=== PATIENT | female | born 1940 | race Caucasian/White ===

== ENCOUNTER 2016-03-23 05:20 | Inpatient (IN) | payer OTHER ==
[2016-03-17 11:18] VITALS: BMI 26.0
--- NOTE | 2016-03-17 11:55 | PAT Medication Instructions ---
Service Date Mar 17, 2016. Current Home Medication List Acetaminophen (Tylenol), 1,000 MG PO TID PRN for Pain Albuterol (Ventolin Hfa), 2 PUFF INH Q4H PRN for SOB/Wheezing Aspirin (Aspirin Ec), 81 MG PO QAM Atenolol (Atenolol), 50 MG PO QAM Atorvastatin (Lipitor), 40 MG PO HS Ferrous Sulfate (Ferrous Sulfate), 1 TAB PO QAM Glipizide (Glucotrol), 10 MG PO BID Levothyroxine Sodium (Synthroid), 100 MCG PO QAM Lisinopril (Lisinopril), 20 MG PO QAM Metformin Hcl (Glucophage), 500 MG PO BID Omeprazole (Prilosec), 20 MG PO QAM Warfarin Sod (Coumadin), 5 MG PO MWF Warfarin Sod (Coumadin), 2.5 MG PO 4XWK Medication Instructions For Your Scheduled Surgery - Check with surgeon/fisher hand line for instructions: Aspirin (Aspirin Ec), 81 MG PO QAM Warfarin Sod (Coumadin), 5 MG PO MWF Warfarin Sod (Coumadin), 2.5 MG PO 4XWK - Hold the following medications 48 hours prior to surgery: Metformin Hcl (Glucophage), 500 MG PO BID - Hold the following medications the morning of surgery: Lisinopril (Lisinopril), 20 MG PO QAM Glipizide (Glucotrol), 10 MG PO BID Ferrous Sulfate (Ferrous Sulfate), 1 TAB PO QAM - Take the following medications the morning of surgery with a sip of water: Albuterol (Ventolin Hfa), 2 PUFF INH Q4H PRN for SOB/Wheezing (bring with you to hospital to morning of the surgery) Acetaminophen (Tylenol), 1,000 MG PO TID PRN for Pain (f needed) Atenolol (Atenolol), 50 MG PO QAM Omeprazole (Prilosec), 20 MG PO QAM Levothyroxine Sodium (Synthroid), 100 MCG PO QAM - Take the following medications as scheduled the night before surgery: Albuterol (Ventolin Hfa), 2 PUFF INH Q4H PRN for SOB/Wheezing Acetaminophen (Tylenol), 1,000 MG PO TID PRN for Pain (f needed) Atorvastatin (Lipitor), 40 MG PO HS Glipizide (Glucotrol), 10 MG PO BID If you have any questions please call us at [phone] (Elsie Ram PA-C) or [phone] or [phone]
[2016-03-17 12:32] LABS: URINE APPEARANCE CLEAR (CLEAR); URINE BILIRUBIN NEG (NEG); URINE COLOR YELLOW; URINE EPITHELIAL CELL AUTO 20-30 /lpf (0-5); URINE NITRITE POS (NEG); URINE SPECIFIC GRAVITY 1.016 (1.000-1.030); UROBILINOGEN NEG (NEG)
[2016-03-17 12:34] LABS: BASO % 0.6 %; BASO ABS # 0.04 K/uL (0-0.2); EOS % 1.9 %; HEMATOCRIT 24.3 % (37-47); IG% 0.4 %; LYMPH % 19.9 %; LYMPH ABS # 1.39 K/uL (1.2-3.4); MEAN CELL VOLUME 89.7 fL (80-100); MEAN CORPUSCULAR HGB CONC 31.3 g/dl (32-36); MEAN PLATELET VOLUME 9.3 fL (7.4-10.4); MONO % 10.3 %; NEUT % 66.9 %; PLATELET COUNT 217 K/uL (130-400); RED BLOOD COUNT 2.71 M/uL (4.2-5.4); WHITE BLOOD COUNT 6.98 K/uL (4.8-10.8)
[2016-03-17 12:36] LABS: MANUAL MICROSCOPIC REQUIRED? NO; REVIEW REQ? NO
--- NOTE | 2016-03-17 12:42 | DIAGNOSTIC IMAGING REPORT ---
CHEST PREADMISSION(PA/LAT) CLINICAL HISTORY: Preoperative chest COMPARISON STUDY: 12/12/2015 FINDINGS: The heart remains moderately enlarged. There is prominence the upper lobe vessels suggesting pulmonary venous hypertension. There is no overt edema. There is no lobar consolidation. There is blunting of the lateral posterior costophrenic angle suggesting trace effusions. An eggshell calcification left upper quadrant likely relates to the splenic artery. There are chronic degenerative changes within the right shoulder.[ IMPRESSION: Cardiomegaly and suspected pulmonary venous hypertension. Trace bilateral pleural effusions. Electronically signed by: Homer Mills M.D. 03/17/2016 12:41 PM
[2016-03-17 13:00] LABS: COMPLETE YES; HYPERSEGMENTED POLYS 1+
[~2016-03-23] VITALS: Ht 154.9 cm; Wt 62.6 kg
[2016-03-23] VITALS (9 sets, daily range): BP systolic 87–177; BP diastolic 54–78; PULSE 60–89; TEMP 36.2–36.6; O2SAT 98–100; Ht 154.9 cm; Wt 62.6 kg
[~2016-03-23 05:20] MED LIST: ACET-1256 PO; ASPI81TA28 PO; CMD5 PO; FRRS300 PO; FURO-85 PO; GLC/500 PO; GLIP10TA9 PO; LEVO100T PO; LPT/40 PO; LSN20 PO; PRLSR20 PO; PRVHFAIN INH; TNR50 PO
[2016-03-23] MEDS ORDERED: LACTATED RINGER'S 1000ML 1,000 ML IV SCH (06:00)
[2016-03-23] MEDS ORDERED: CEFAZOLIN 2000 MG/60 ML D5W IV SCH (06:00)
[2016-03-23 06:11] LABS: HEMATOCRIT 35.1 % (37-47); MEAN CELL VOLUME 90.5 fL (80-100); MEAN CORPUSCULAR HEMOGLOBIN 29.1 pg (25-34); MEAN PLATELET VOLUME 9.1 fL (7.4-10.4); PLATELET COUNT 263 K/uL (130-400); RED BLOOD COUNT 3.88 M/uL (4.2-5.4); WHITE BLOOD COUNT 7.37 K/uL (4.8-10.8)
[2016-03-23 06:14] LABS: MEAN CORPUSCULAR HGB CONC 32.2 g/dl (32-36)
[2016-03-23 06:20] LABS: INR 1.1 (0.9-1.1); PARTIAL THROMBOPLASTIN RATIO 1.1; PROTHROMBIN TIME (PATIENT) 12.3 SECONDS (9.0-12.0)
[2016-03-23] MEDS ORDERED: MIDAZOLAM HCL 1 MG/ML 2ML VIAL ONE (06:56)
[2016-03-23] MEDS ORDERED: FENTANYL CITRATE INJ 50 MCG/1 ML 2 ML VIAL ONE (06:56)
--- NOTE | 2016-03-23 07:29 | History & Physical Bridge Note ---
H&P Re-Evaluation Bridge Note: I have examined the patient, reviewed the History & Physical and in the interval since the performance of the History & Physical I have noted the following changes of clinical significance: No changes noted
[2016-03-23] MEDS ORDERED: GLYCOPYRROLATE INJ 0.2 MG/ML VIAL ONE (08:12)
[2016-03-23] MEDS ORDERED: LIDOCAINE HCL 2% 2 ML VIAL (20MG/ML) ONE (08:12)
[2016-03-23] MEDS ORDERED: NEOSTIGMINE METHYLSULFATE 5 MG/5 ML SYR ONE (08:12)
[2016-03-23] MEDS ORDERED: LARYING-O-JET KIT (LTA) EXT ONE ×2 (08:12)
[2016-03-23] MEDS ORDERED: PHENYLEPHRINE HCL INJ 10 MG/ML VIAL ONE (08:12)
[2016-03-23] MEDS ORDERED: ONDANSETRON INJ 2 MG/ML 2 ML VIAL ONE (08:12)
[2016-03-23] MEDS ORDERED: ROCURONIUM BROMIDE 10 MG/ML 5 ML VIAL ONE (08:12)
[2016-03-23] MEDS ORDERED: PROPOFOL IV EMULSION 10 MG/ML 20 ML VIAL IV ONE (08:12)
[2016-03-23] MEDS ORDERED: PANTOprazole SOD 40 MG TAB PO PRN (09:00)
[2016-03-23] MEDS ORDERED: TISSEEL FIBRIN SEALANT 4ML TOP ONE (09:13)
[2016-03-23] MEDS ORDERED: BUPIVACAINE 0.5 % 5 MG/1 ML MPF 30ML VIAL INJ ONE (09:13)
[2016-03-23] MEDS ORDERED: LABETALOL HCL IV 5 MG/ML 20ML IV PRN (09:30)
[2016-03-23] MEDS ORDERED: ONDANSETRON INJ 2 MG/ML 2 ML VIAL IV PRN ×2 (09:30)
[2016-03-23] MEDS ORDERED: ALBUTEROL HFA 8 GM INHALER INH PRN (09:30)
[2016-03-23] MEDS ORDERED: ATROPINE SULFATE 0.1 MG/ML 5ML SYR IV PRN (09:30)
[2016-03-23] MEDS ORDERED: HYDROmorphone INJ 1 MG/ML SYR IV PRN (09:30)
--- NOTE | 2016-03-23 09:34 | [facility] Post Operative Brief Note ---
Immediate Operative Summary Operative Date Mar 23, 2016. Pre-Operative Diagnosis Right Renal Mass Post-Operative Diagnosis Right Renal Mass Procedure(s) Performed Right Left Hand Assisted Laparoscopic Nephrectomy Surgeon Dr. Alan Pavon Casing Wringer Operator Surgeon(s) Shanna JC Estimated Blood Loss 100 ml Findings As per dictation Specimens A. Right Kidney Drains Mahajan Anesthesia Gen Complication(s) None Disposition Recovery Room / PACU (stable)
[2016-03-23] MEDS ORDERED: PHARMACY GLYCEMIC MGMT CONSULT SCH (09:43)
[2016-03-23 09:59] LABS: HEMATOCRIT 31.1 % (37-47); MEAN CELL VOLUME 89.9 fL (80-100); MEAN CORPUSCULAR HEMOGLOBIN 29.2 pg (25-34); MEAN PLATELET VOLUME 8.8 fL (7.4-10.4); PLATELET COUNT 191 K/uL (130-400); RED BLOOD COUNT 3.46 M/uL (4.2-5.4); WHITE BLOOD COUNT 7.37 K/uL (4.8-10.8)
[2016-03-23] MEDS ORDERED: FUROSEMIDE INJ 20 MG in SYRINGE 0 ML IV SCH (10:00)
[2016-03-23] MEDS: HYDROmorphone INJ 2 MG/ML SYR/VIAL IV PRN ×4 (10:14→10:30)
[2016-03-23 10:21] LABS: MEAN CORPUSCULAR HGB CONC 32.5 g/dl (32-36)
[2016-03-23 10:31] LABS: BUN/CREATININE RATIO 18.7 (10-20); CALCIUM 8.7 mg/dl (8.5-10.1); CREATININE 0.69 mg/dl (0.60-1.20)
--- NOTE | 2016-03-23 11:25 | OPERATIVE REPORT ---
DATE OF OPERATION: 03/23/2016 PREOPERATIVE DIAGNOSIS: Right renal mass. POSTOPERATIVE DIAGNOSIS: Right renal mass. PROCEDURE PERFORMED: Right radical nephrectomy, hand assisted laparoscopic. ANESTHESIA: General. ESTIMATED BLOOD LOSS: 100 mL. PRIMARY SURGEON: Dr. Alan Pavon. WOOD ENGRAVER: Ms. Shanna Power. DRAINS: Mahajan catheter. SPECIMEN: Kidney for routine pathology. DESCRIPTION OF THE PROCEDURE: Christen Cortes was identified in the preoperative holding area. Appropriate informed consents were reviewed and completed and the patient was transported to the operating suite. Upon arrival she received appropriate preoperative antibiotics in the form of Ancef. Of note, she has been on Coumadin at home and this was stopped appropriately 5 days ahead of time. She has been maintained on baby aspirin. Following induction of general anesthesia, she was placed in the left side down, right side up lateral decubitus position and padded and braced in standard fashion. Following sterile prep I made a right Castellano style incision. 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 She suspects this is a hernia and I have attempted to tell her that it does not appear to be a hernia based on the imaging, nor on palpation. I used care to avoid this area and her pannus hangs low enough that I was able to make an incision up higher lateral to the umbilicus which was far from this area. This incision was approximately 7 cm in length and large enough to accommodate a hand port. I incised through her muscular layers sequentially. I opened the peritoneum sharply. I palpated inside the peritoneum and found no adhesions in this area. I was able to retract this incision and mobilize the colon by incising the white line of Toldt down to the right lower quadrant, as well as up behind the kidney. At that time, I was able to insert a Gelport and insufflate the abdomen through the Gelport via a 12 mm trocar. I then performed a visual inspection with the laparoscope. I saw some small areas of adhesions overlying the kidney and liver, but the areas where I tended to place my ports, at the lateral edge of the rectus, were all clear of adhesions. I placed these 2 ports onto my hand, one approximately 3 fingerbreadths below the costal margin, and the other approximately 8 cm below that. With these ports in place, I mobilized these adhesions by incising them against the anterior abdominal wall. There was just omentum in this area and no evidence of bowel. I continued to dissect the white line of Toldt until I had mobilized the colon medial and I had exposed the underlying duodenum. I kocherized the duodenum moderately until I identified the inferior vena cava. I went back to the lower pole of the kidney, and I was able to dissect lateral to the IVC and elevate the cone of Gerota's, which included at that time the gonadal vein, as well as the ureter. I traced this further cephalad until I encountered the junction of the IVC and the gonadal. I then dissected lateral to the gonadal dropping this gonadal down and sparing it. This kept the ureter in my packet, and I dissected posterior to the kidney where I was able to place a finger and elevate the kidney and stretch the hilum. I dissected up the lateral aspect of the IVC until I encountered the renal vein. I exposed the renal vein entirely on the anterior surface, and as well as the superior and inferior aspect. I could palpate the renal artery immediately posterior to this. I was able to create a window superior to the renal vein utilizing a finger behind the hilum. Once this was collected and the hilum was entirely skeletonized, I took the renal vein and artery en bloc with a single staple load. There was good hemostasis. I then fired an additional staple load across the medial superior aspect of the kidney to separate the adrenal gland and the kidney. A third staple load was used to complete this incision. I then used the Harmonic scalpel to dissect around the lateral and superior attachments of the kidney, entirely freeing the specimen. After the kidney was freed, I went back down to the lower cone of Gerota's and I skeletonized the lower cone of Gerota's using the Harmonic scalpel until I had visualize the ureter. I placed 2 clips across the distal end of the ureter and 1 clip across the specimen side, and incised between the 2 using the Harmonic scalpel. The specimen was extracted through the port without difficulty. I then reinspected the resection bed, which had excellent hemostasis. I did place Tisseel across the vascular staple areas before concluding the case. I then withdrew the laparoscope and laparoscopic ports and began to close the fascia in several layers. I did close the peritoneum 1st with a running 0 Vicryl, followed by closure of the internal oblique and external oblique fascias in separate layers using 0 Vicryl as well. I closed each of the 12 mm ports utilizing a 0 Vicryl in [id number] fashion. All incisions were closed with 4-0 Monocryl, and all wounds were infiltrated with 0.5% Marcaine before closure. Dermabond was placed over the incisions. The patient was reversed from anesthesia and taken to the PACU in stable condition. She tolerated this procedure very well. There were no complications. I attest to the content of the Intraoperative Record and any orders documented therein. Any exceptio ns are noted below.
[2016-03-23] MEDS: ACETAMINOPHEN 500 MG TAB PO SCH ×3 (11:36→21:01)
--- NOTE | 2016-03-23 11:36 | Anesthesiology Progress Note ---
Anesthesia Post Op Note Date & Time Mar 23, 2016 at 11:36 Vital Signs Pain Intensity: 3 Vital Signs Past 12 Hours Date Time Temp Pulse Resp B/P Pulse Ox O2 Delivery O2 Flow Rate FiO2 03/23/16 10:08 36.8 64 16 158/74 100 Nasal Cannula 2 03/23/16 10:02 57 14 03/23/16 10:02 61 14 100 03/23/16 09:59 174/81 03/23/16 09:57 63 13 100 03/23/16 09:57 60 13 03/23/16 09:55 170/85 03/23/16 09:54 174/103 03/23/16 09:52 63 18 100 03/23/16 09:52 64 18 03/23/16 09:49 183/84 03/23/16 09:47 65 15 03/23/16 09:47 70 15 100 03/23/16 09:44 169/79 03/23/16 09:42 68 12 92 03/23/16 09:42 67 12 03/23/16 09:39 159/78 03/23/16 09:37 36.1 74 16 168/95 100 Mask 10 03/23/16 09:37 73 13 99 03/23/16 09:37 85 13 03/23/16 06:04 36.4 71 18 144/78 99 Room Air Notes Mental Status: alert / awake / arousable, participated in evaluation Pt Amnestic to Procedure: Yes Nausea / Vomiting: adequately controlled Pain: adequately controlled Airway Patency, RR, SpO2: stable & adequate BP & HR: stable & adequate Hydration State: stable & adequate Anesthetic Complications: no major complications apparent
[2016-03-23] MEDS: LACTATED RINGER'S 1000ML 1,000 ML IV SCH ×2 (11:46→20:14)
[2016-03-23] MEDS: ACETAMINOPHEN/CODEINE 300/30MG TAB PO PRN ×3 (11:49→17:52)
[2016-03-23] MEDS ORDERED: GLUCOSE 10 TABS/TUBE PO PRN (14:45)
[2016-03-23] MEDS ORDERED: GLUCOSE 40% GEL 15 GM TUBE PO PRN (14:45)
[2016-03-23] MEDS ORDERED: DEXTROSE 50% 50 ML SYR IV PRN (14:45)
[2016-03-23] MEDS ORDERED: GLUCAGON FOR INJ 1 MG VIAL SQ PRN (14:45)
--- NOTE | 2016-03-23 15:10 | Pharmacy Progress Note ---
Glycemic Control Intl Consult Date of Service Mar 23, 2016. Scope Glycemic Pharmacist consulted by Shanna JC on 03/23/2016 for glycemic control and to write orders per [facility] inpatient glycemic control protocol Objective Weight (Kilograms): 62.600 Accuchecks BSG (last 24hrs): Test 03/23/16 06:00 03/23/16 08:51 03/23/16 09:37 03/23/16 09:50 Bedside Glucose 80 mg/dl (70-90) 72 mg/dl (70-90) 136 mg/dl (70-90) Random Glucose 155 mg/dl (70-99) Test 03/23/16 12:24 Bedside Glucose 185 mg/dl (70-90) Laboratory Data (last 24hrs) Test 03/23/16 05:44 03/23/16 09:50 White Blood Count 7.37 K/uL 7.37 K/uL Anion Gap 6.0 mmol/L BUN/Creatinine Ratio 18.7 Blood Urea Nitrogen 13 mg/dl Creatinine 0.69 mg/dl Potassium Level 4.0 mmol/L Sodium Level 139 mmol/L HbA1c Not indicated, recent blood transfusion and anemia; result would likely be unreliable. Previous A1c = 6.3% on 12/12/15 Recent Pertinent Medications Outpatient Anti-diabetic Regimen: * Metformin 500mg PO BID * Glipizide 10mg PO BID Risk Factors for Insulin Resistance: * Recent Surgery * Diet Assessment & Plan ASSESSMENT: * 75yo T2DM female with presumed adequate control as an outpatient per recent A1c. Will not repeat A1c d/t recent blood transfusion and anemia which would make the result unreliable. * Pt is maintained on oral antidiabetic agents as an outpatient * Oral agents are not recommended for inpatient use d/t difficultly titrating in acute situations, drug interactions, & changing PO intake/status * ADA recommends re-initiating outpatient oral agents 1-2 days prior to discharge if/when appropriate if they were held on admission. * Recommended regimen for inpatient use is SQ Basal Bolus insulin regimen with Lantus + NovoLog * Weight based SQ basal bolus insulin dosing per [facility] calculator will be used while oral antidiabetic agents on hold. Will titrate parameters based on BSG trends * Pt with well controlled diabetes as an outpatient and minimal risk factors for insulin resistance. Basal insulin not warranted at this time. Will initiate basal insulin for persistent hyperglycemia (BSG > 180mg/dl) * ADA & AACE recommend a goal blood sugar range 140-180 mg/dl for the majority of critically ill & non-critically ill patients. However, more stringent targets may be selected in individual cases. Will utilize more stringent goal of 110-140mg/dl based on patient age & comorbidities. Additionally, tighter glycemic control is warranted to facilitate wound/infection healing post- operatively. PLAN FOR INPATIENT GLYCEMIC CONTROL: * Holding outpatient oral diabetes medications * Will try to re-initiate 1-2 days prior to discharge once renal function assessed and PO intake adequate * Correctional Insulin with NOVOLOG per scale ACHS or Q6hrs while NPO * Goal Range: Low 110 mg/dL - High 140 mg/dL * Correction Factor: 40 mg/dL/unit * Nutritional / Prandial insulin per carb ratio of 1 unit per 14 grams CHO consumed * Please note that the plan above was derived based on current level of insulin resistance and hospital stress. These recommendations are appropriate for inpatient admission only. Plan of care upon discharge will need to be reassessed to avoid potential outpatient hypo/hyperglycemia. Thank you.
[2016-03-23] MEDS: CEFAZOLIN IV 1,000 MG in DEXTROSE 5% 50ML 50 ML IV SCH (16:16)
[2016-03-23] MEDS: INSULIN ASPART 100 UNITS/ML 3 ML PEN SC SCH ×2 (17:54→20:58)
[2016-03-23] MEDS: HEPARIN SOD 5000 UNIT/0.5 ML CARP SQ SCH (20:22)
[2016-03-23] MEDS: DOCUSATE SODIUM 100 MG CAP PO SCH (20:25)
[2016-03-23] MEDS: ATORVASTATIN 20 MG TAB PO SCH (20:26)
[2016-03-23] MEDS ORDERED: NURSING VERBAL MED ORDER ONE (23:15)
[2016-03-23] MEDS ORDERED: LACTATED RINGER'S 1000ML 250 ML IV SCH (23:45)
[2016-03-24] VITALS (21 sets, daily range): BP systolic 107–148; BP diastolic 54–76; PULSE 68–89; TEMP 36.5–37.4; O2SAT 92–100
[2016-03-24] MEDS: CEFAZOLIN IV 1,000 MG in DEXTROSE 5% 50ML 50 ML IV SCH ×2 (00:29→07:44)
[2016-03-24] MEDS: LACTATED RINGER'S 1000ML 1,000 ML IV SCH ×3 (03:43→19:08)
[2016-03-24] MEDS: ACETAMINOPHEN 500 MG TAB PO SCH ×4 (03:44→21:34)
[2016-03-24] MEDS: LEVOTHYROXINE 100 MCG TAB PO SCH (06:17)
[2016-03-24] MEDS: HEPARIN SOD 5000 UNIT/0.5 ML CARP SQ SCH ×2 (06:22→19:15)
[2016-03-24 07:29] LABS: HEMATOCRIT 20.1 % (37-47); MEAN CELL VOLUME 89.3 fL (80-100); MEAN CORPUSCULAR HEMOGLOBIN 28.9 pg (25-34); MEAN CORPUSCULAR HGB CONC 32.3 g/dl (32-36); MEAN PLATELET VOLUME 8.9 fL (7.4-10.4); PLATELET COUNT 242 K/uL (130-400); RED BLOOD COUNT 2.25 M/uL (4.2-5.4)
[2016-03-24 07:37] LABS: BUN/CREATININE RATIO 16.1 (10-20); CALCIUM 8.1 mg/dl (8.5-10.1); POTASSIUM 4.2 mmol/L (3.5-5.1)
[2016-03-24 07:48] LABS: BASO % 0.4 %; BASO ABS # 0.03 K/uL (0-0.2); COMPLETE YES; EOS % 0.6 %; HYPERSEGMENTED POLYS 1+; IG% 0.3 %; LYMPH % 29.8 %; LYMPH ABS # 2.38 K/uL (1.2-3.4); NEUT % 58.9 %; POIKILOCYTOSIS PRESENT
--- NOTE | 2016-03-24 08:09 | Progress Note ---
Subjective Date of Service: Mar 24, 2016. Subjective Pt evaluation today including: conversation w/ patient, chart review, lab review Voiding: sanford catheter in place (patent, draining clear, yellow urine ) 75 yo female s/p right HALN. Pt reports she feels well this morning despite critical H&H of 6.5 and 20.1. She does have hx of anemia requiring transfusion most recently last week. The pt appears hemodynamically stable with normal BP and HR at this time. Denies pain. Denies n/v. She reports she is hungry this morning. Denies flatus or BM. Review of Systems Constitutional: No chills, No fever Respiratory: No shortness of breath Cardiac: No chest pain Abdomen: No nausea, No pain, No vomiting Female : No hematuria Heme: No abnormal bleeding/bruising Objective Vital Signs Date Time Temp Pulse Resp B/P Pulse Ox O2 Delivery O2 Flow Rate FiO2 03/24/16 07:40 36.6 71 20 120/64 99 Nasal Cannula 03/24/16 03:06 36.6 82 17 113/62 100 Nasal Cannula 2.0 Humidified Oxygen 03/24/16 00:30 74 17 107/63 100 Nasal Cannula 2.0 Humidified Oxygen 03/23/16 23:30 Nasal Cannula 2.0 Humidified Oxygen 03/23/16 22:52 36.6 89 16 93/60 98 Nasal Cannula 1.0 03/23/16 18:58 36.2 79 16 87/54 98 Nasal Cannula 1.0 03/23/16 16:00 Nasal Cannula 2.0 03/23/16 15:13 36.3 68 16 150/72 99 Nasal Cannula 1.0 03/23/16 13:55 60 16 177/70 100 03/23/16 13:10 67 16 165/67 99 03/23/16 11:55 36.6 66 16 174/75 100 Nasal Cannula 2.0 03/23/16 11:25 36.3 62 16 171/75 100 Nasal Cannula 2.0 03/23/16 10:55 100 Nasal Cannula 2.0 03/23/16 10:55 100 Nasal Cannula 2.0 03/23/16 10:55 36.3 62 16 163/68 100 Nasal Cannula 2.0 03/23/16 10:08 36.8 64 16 158/74 100 Nasal Cannula 2 03/23/16 10:02 57 14 03/23/16 10:02 61 14 100 03/23/16 09:59 174/81 03/23/16 09:57 63 13 100 03/23/16 09:57 60 13 03/23/16 09:55 170/85 03/23/16 09:54 174/103 03/23/16 09:52 63 18 100 03/23/16 09:52 64 18 03/23/16 09:49 183/84 03/23/16 09:47 65 15 03/23/16 09:47 70 15 100 03/23/16 09:44 169/79 03/23/16 09:42 68 12 92 03/23/16 09:42 67 12 03/23/16 09:39 159/78 03/23/16 09:37 36.1 74 16 168/95 100 Mask 10 03/23/16 09:37 73 13 99 03/23/16 09:37 85 13 Physical Exam General Appearance: no apparent distress Eyes: normal inspection ENT: hearing grossly normal Neck: no JVD Respiratory/Chest: no respiratory distress, no accessory muscle use Cardiovascular: no JVD Abdomen: + pertinent finding (abdominal incisions c/d/i) Extremities: normal inspection Neurologic/Psychiatric: alert, normal mood/affect, oriented x 3 Skin: normal color Laboratory Results Last 24 Hours Test 03/23/16 08:51 03/23/16 09:37 03/23/16 09:50 03/23/16 12:24 Bedside Glucose 72 mg/dl 136 mg/dl 185 mg/dl White Blood Count 7.37 K/uL Red Blood Count 3.46 M/uL Hemoglobin 10.1 g/dL Hematocrit 31.1 % Mean Corpuscular Volume 89.9 fL Mean Corpuscular Hemoglobin 29.2 pg Mean Corpuscular Hemoglobin Concent 32.5 g/dl RDW Standard Deviation 51.9 fL RDW Coefficient of Variation 16.0 % Platelet Count 191 K/uL Mean Platelet Volume 8.8 fL Sodium Level 139 mmol/L Potassium Level 4.0 mmol/L Chloride Level 103 mmol/L Carbon Dioxide Level 30 mmol/L Anion Gap 6.0 mmol/L Blood Urea Nitrogen 13 mg/dl Creatinine 0.69 mg/dl Est Creatinine Clear Calc Drug Dose 59.7 ml/min Estimated GFR () 98.7 Estimated GFR (Non- 85.2 BUN/Creatinine Ratio 18.7 Random Glucose 155 mg/dl Calcium Level 8.7 mg/dl Test 03/23/16 16:44 03/23/16 20:54 03/24/16 06:28 03/24/16 07:53 Bedside Glucose 191 mg/dl 202 mg/dl 108 mg/dl White Blood Count 8.00 K/uL Red Blood Count 2.25 M/uL Hemoglobin 6.5 g/dL Hematocrit 20.1 % Mean Corpuscular Volume 89.3 fL Mean Corpuscular Hemoglobin 28.9 pg Mean Corpuscular Hemoglobin Concent 32.3 g/dl Platelet Count 242 K/uL Mean Platelet Volume 8.9 fL Neutrophils (%) (Auto) 58.9 % Lymphocytes (%) (Auto) 29.8 % Monocytes (%) (Auto) 10.0 % Eosinophils (%) (Auto) 0.6 % Basophils (%) (Auto) 0.4 % Neutrophils # (Auto) 4.72 K/uL Lymphocytes # (Auto) 2.38 K/uL Monocytes # (Auto) 0.80 K/uL Eosinophils # (Auto) 0.05 K/uL Basophils # (Auto) 0.03 K/uL RDW Standard Deviation 53.0 fL RDW Coefficient of Variation 16.3 % Immature Granulocyte % (Auto) 0.3 % Immature Granulocyte # (Auto) 0.02 K/uL Hypersegmented Polys 1+ Poikilocytosis PRESENT Sodium Level 136 mmol/L Potassium Level 4.2 mmol/L Chloride Level 98 mmol/L Carbon Dioxide Level 31 mmol/L Anion Gap 7.0 mmol/L Blood Urea Nitrogen 18 mg/dl Est Creatinine Clear Calc Drug Dose 37.5 ml/min Estimated GFR () 56.9 Estimated GFR (Non- 49.1 BUN/Creatinine Ratio 16.1 Random Glucose 100 mg/dl Calcium Level 8.1 mg/dl Test 03/24/16 07:55 Assessment and Plan POD #1 s/p Right HALN. AFVSS. Will repeat a stat H&H this AM to ensure accuracy. Transfuse 2 units pending values. Trial of void this AM. Will advance to a mechanical soft diet for breakfast. Encourage use of IS. Encourage ambulation to hallway later today.
[2016-03-24 08:24] LABS: HEMATOCRIT 20.2 % (37-47)
--- NOTE | 2016-03-24 08:43 | Anesthesiology Progress Note ---
Anesthesia Post Op Note Date & Time Mar 24, 2016 at 08:42 Vital Signs Vital Signs Past 12 Hours Date Time Temp Pulse Resp B/P Pulse Ox O2 Delivery O2 Flow Rate FiO2 03/24/16 08:26 99 Nasal Cannula 2.0 03/24/16 07:40 36.6 71 20 120/64 99 Nasal Cannula 03/24/16 03:06 36.6 82 17 113/62 100 Nasal Cannula 2.0 Humidified Oxygen 03/24/16 00:30 74 17 107/63 100 Nasal Cannula 2.0 Humidified Oxygen 03/23/16 23:30 Nasal Cannula 2.0 Humidified Oxygen 03/23/16 22:52 36.6 89 16 93/60 98 Nasal Cannula 1.0 Notes Mental Status: alert / awake / arousable, participated in evaluation Pt Amnestic to Procedure: Yes Nausea / Vomiting: adequately controlled Pain: adequately controlled Airway Patency, RR, SpO2: stable & adequate BP & HR: stable & adequate Hydration State: stable & adequate Anesthetic Complications: no major complications apparent
[2016-03-24 08:47] LABS: CREATININE 1.1 mg/dl (0.60-1.20)
[2016-03-24] MEDS: LISINOPRIL 20 MG TAB PO SCH (08:56)
[2016-03-24] MEDS: FUROSEMIDE 20 MG TAB PO SCH (08:56)
[2016-03-24] MEDS: DOCUSATE SODIUM 100 MG CAP PO SCH ×2 (08:56→21:31)
[2016-03-24] MEDS: INSULIN ASPART 100 UNITS/ML 3 ML PEN SC SCH ×4 (09:05→21:30)
[2016-03-24] MEDS: ASPIRIN 81 MG ECTAB PO SCH (09:42)
--- NOTE | 2016-03-24 12:07 | Pharmacy Progress Note ---
Glycemic Control: Progress Nt Date of Service Mar 24, 2016. Scope Glycemic Pharmacist consulted by Dr Shanna JC on 03/23/16 for glycemic control and to write orders per [facility] inpatient glycemic control protocol. Objective Accuchecks BSG (last 24hrs): Test 03/23/16 12:24 03/23/16 16:44 03/23/16 20:54 03/24/16 06:28 Bedside Glucose 185 mg/dl (70-90) 191 mg/dl (70-90) 202 mg/dl (70-90) Random Glucose 100 mg/dl (70-99) Test 03/24/16 07:53 03/24/16 11:35 Bedside Glucose 108 mg/dl (70-90) 263 mg/dl (70-90) Laboratory Data (last 24hrs) Test 03/24/16 06:28 Anion Gap 7.0 mmol/L BUN/Creatinine Ratio 16.1 Blood Urea Nitrogen 18 mg/dl Creatinine 1.10 mg/dl Potassium Level 4.2 mmol/L Sodium Level 136 mmol/L White Blood Count 8.00 K/uL Red Blood Count 2.25 M/uL Hemoglobin 6.5 g/dL Hematocrit 20.1 % Mean Corpuscular Volume 89.3 fL Mean Corpuscular Hemoglobin 28.9 pg Mean Corpuscular Hemoglobin Concent 32.3 g/dl Platelet Count 242 K/uL Mean Platelet Volume 8.9 fL Neutrophils (%) (Auto) 58.9 % Lymphocytes (%) (Auto) 29.8 % Monocytes (%) (Auto) 10.0 % Eosinophils (%) (Auto) 0.6 % Basophils (%) (Auto) 0.4 % Neutrophils # (Auto) 4.72 K/uL Lymphocytes # (Auto) 2.38 K/uL Monocytes # (Auto) 0.80 K/uL Eosinophils # (Auto) 0.05 K/uL Basophils # (Auto) 0.03 K/uL HbA1c: No indicated - not reliable d/t recent blood transfusion and history of severe anemia. Recent Pertinent Medications Outpatient Anti-diabetic Regimen: * Metformin 500mg PO BID * Glipizide 10mg PO BID Patient is Currently Ordered: * Basal insulin: N/A - not indicated at this time * Correctional Insulin: Novolog Correction per scale ACHS Goal Range: Low 110 mg/dL - High 140 mg/dL Correction Factor: 40 mg/dL/unit * Prandial insulin: Per carb ratio of 1 unit per 14 grams CHO consumed Risk Factors for Insulin Resistance: * Recent Surgery * Diet Assessment & Plan ASSESSMENT: * 75yo T2DM female with presumed adequate control as an outpatient per recent A1c. Will not repeat A1c d/t recent blood transfusion and anemia which would make the result unreliable. * Pt is maintained on oral antidiabetic agents as an outpatient which were held on admission d/t difficultly titrating in acute situations, drug interactions, & changing PO intake/status. * Recommended regimen for inpatient use is SQ Basal Bolus insulin regimen with Lantus + NovoLog * Weight based SQ basal bolus insulin dosing per [facility] calculator ordered while oral antidiabetic agents on hold. Will continue to titrate parameters based on BSG trends * ADA & AACE recommend a goal blood sugar range 140-180 mg/dl for the majority of critically ill & non-critically ill patients. However, more stringent targets may be selected in individual cases. Will utilize more stringent goal of 110-140mg/dl based on patient age & comorbidities. Additionally, tighter glycemic control is warranted to facilitate wound/infection healing post- operatively. * BSGs ranging 108-263mg/dl over the past 24hrs. * AM fasting BSG in goal range at 108mg/dl --> no basal insulin indicated at this time but may be needed while PO agents on hold. Will initiate conservative dosing if BSG > 180 x 2 * Post-prandial BSGs elevated --> will tighten CF/CR. * Scr increased from 0.69mg/dl yesterday to 1.1mg/dl today. Will not resume metformin at this time. Will re-assess tomorrow. PLAN FOR INPATIENT GLYCEMIC CONTROL: * Holding outpatient oral diabetes medications * Will try to re-initiate 1-2 days prior to discharge once renal function stable and PO intake adequate * Give basal insulin with Lantus 10 units SQ x 1 dose tonight with dinner if BSG > 180mg/dl * TIGHTEN Correctional Insulin with NOVOLOG per scale ACHS or Q6hrs while NPO * Goal Range: Low 110 mg/dL - High 140 mg/dL * Correction Factor: 30 mg/dL/unit * Nutritional / Prandial insulin per carb ratio of 1 unit per 10 grams CHO consumed * Please note that the plan above was derived based on current level of insulin resistance and hospital stress. These recommendations are appropriate for inpatient admission only. Plan of care upon discharge will need to be reassessed to avoid potential outpatient hypo/hyperglycemia. Thank you.
[2016-03-24] MEDS ORDERED: LANTUS PER UNIT CHARGE SQ PRN (12:30)
--- NOTE | 2016-03-24 13:18 | Clinical Documentation Query ---
CLINICAL DOCUMENTATION QUERY Ms. STEWART, In your clinical opinion is this patient being managed for: ( ) Acute blood loss anemia ( ) Other explanation of clinical findings (Please Explain) ( X) Unable to determine (Please Define) Pt has hx of pre-op chronic anemia requiring transfusion last week as well. In all likelihood this is directly related to the surgery, but it is a relatively profound change that immediately stabilized, and she had no symptoms consistent with this degree of change. ( ) Need to Discuss ( ) Not Agree The medical record reflects the following clinical findings, treatment, and risk factors. Clinical Indicators: 75 yo female presented with known hx of anemia. Preop baseline on 03/17 was 7.6/24.3. Pt had outpatient transfusion prior to surgery. Immediate preop H/H was 11.3/35.1. Post operative H/H 6.6/20.2, EBL 100 cc. Hypotensive postoperative with BP 87/54-93/60 and decreased UOP. Treatment: transfuse 2 U PRBC, 250 cc LR bolus, continuous fluids Risk Factors: preexisting anemia, surgical procedure Please clarify and document your clinical opinion in the progress notes and discharge summary. Terms such as "probable", "suspected", "likely", "questionable", "possible", or "still to be ruled out" are acceptable. IF IN AGREEMENT, YOU MUST DOCUMENT ABOVE DIAGNOSTIC STATEMENT IN DAILY PROGRESS NOTES AND DISCHARGE SUMMARY. This document is not part of the patient's record. Thank You, Deborah Mckeon RN [phone]
--- NOTE | 2016-03-24 13:20 | Clinical Documentation Query ---
CLINICAL DOCUMENTATION QUERY Dr. FLORES, In your clinical opinion is this patient being managed for: ( ) Acute blood loss anemia ( ) Other explanation of clinical findings (Please Explain) ( ) Unable to determine (Please Define) ( ) Need to Discuss ( ) Not Agree The medical record reflects the following clinical findings, treatment, and risk factors. Clinical Indicators: 75 yo female presented with known hx of anemia. Preop baseline on 03/17 was 7.6/24.3. Pt had outpatient transfusion prior to surgery. Immediate preop H/H was 11.3/35.1. Post operative H/H 6.6/20.2, EBL 100 cc. Hypotensive postoperative with BP 87/54-93/60 and decreased UOP. Treatment: transfuse 2 U PRBC, 250 cc LR bolus, continuous fluids Risk Factors: preexisting anemia, surgical procedure Please clarify and document your clinical opinion in the progress notes and discharge summary. Terms such as "probable", "suspected", "likely", "questionable", "possible", or "still to be ruled out" are acceptable. IF IN AGREEMENT, YOU MUST DOCUMENT ABOVE DIAGNOSTIC STATEMENT IN DAILY PROGRESS NOTES AND DISCHARGE SUMMARY. This document is not part of the patient's record. Thank You, Deborah Mckeon, JESSICA [phone]
[2016-03-24 16:56] LABS: HEMATOCRIT 26.9 % (37-47)
[2016-03-24] MEDS ORDERED: [UNRECOGNIZED DRUG - OTHER] SCH (17:45)
[2016-03-24] MEDS: ATORVASTATIN 20 MG TAB PO SCH (21:28)
[2016-03-24 22:44] LABS: HEMATOCRIT 27.8 % (37-47)
[2016-03-25] MEDS: ACETAMINOPHEN 500 MG TAB PO SCH ×3 (03:54→15:50)
[2016-03-25] MEDS: LACTATED RINGER'S 1000ML 1,000 ML IV SCH ×2 (03:55→11:58)
[2016-03-25] MEDS: LEVOTHYROXINE 100 MCG TAB PO SCH (06:00)
[2016-03-25 06:05] VITALS: PULSE 75; O2SAT 95
[2016-03-25] MEDS: HEPARIN SOD 5000 UNIT/0.5 ML CARP SQ SCH (06:09)
[2016-03-25 06:21] LABS: BASO % 0.4 %; BASO ABS # 0.03 K/uL (0-0.2); EOS % 1.7 %; HEMATOCRIT 25.3 % (37-47); IG% 0.1 %; LYMPH % 30.3 %; MEAN CELL VOLUME 89.1 fL (80-100); MEAN CORPUSCULAR HEMOGLOBIN 29.9 pg (25-34); MEAN CORPUSCULAR HGB CONC 33.6 g/dl (32-36); MEAN PLATELET VOLUME 8.8 fL (7.4-10.4); MONO % 11.9 %; NEUT % 55.6 %; PLATELET COUNT 147 K/uL (130-400); RED BLOOD COUNT 2.84 M/uL (4.2-5.4); WHITE BLOOD COUNT 7.25 K/uL (4.8-10.8)
[2016-03-25 06:53] LABS: BUN/CREATININE RATIO 17.3 (10-20); CALCIUM 8.3 mg/dl (8.5-10.1); CREATININE 1.1 mg/dl (0.60-1.20); POTASSIUM 4.3 mmol/L (3.5-5.1)
[2016-03-25 07:09] LABS: COMPLETE YES; HYPERSEGMENTED POLYS 1+
[2016-03-25 07:19] VITALS: BP 147/70; PULSE 74; TEMP 36.8; O2SAT 95
--- NOTE | 2016-03-25 08:03 | Progress Note ---
Subjective Date of Service: Mar 25, 2016. Subjective Pt evaluation today including: conversation w/ patient, chart review, lab review Voiding: no voiding problems 75 yo female s/p right HALN. Pt received 2 units of PRBCs yesterday. H&H this AM is 8.5 and 25.3. Slight drop overnight from 9.4 and 27.8. Pt denies pain this morning. Denies n/v. Denies flatus or BM thus far. She has been ambulating to the hallway without difficulty. Review of Systems Constitutional: No chills, No fever Respiratory: No shortness of breath Cardiac: No chest pain Abdomen: No nausea, No pain, No vomiting Female : No hematuria Heme: No abnormal bleeding/bruising Objective Vital Signs Date Time Temp Pulse Resp B/P Pulse Ox O2 Delivery O2 Flow Rate FiO2 03/25/16 06:05 75 95 Room Air 03/25/16 00:15 Nasal Cannula 2.0 Humidified Oxygen 03/24/16 22:36 36.6 70 18 148/65 99 Nasal Cannula 2.0 Humidified Oxygen 03/24/16 15:45 36.6 73 16 128/74 98 2.0 03/24/16 15:33 36.8 68 16 134/54 100 Nasal Cannula 2.0 Humidified Oxygen 03/24/16 15:15 98 Room Air 03/24/16 14:45 36.5 78 20 122/57 96 2.0 03/24/16 13:52 36.6 72 20 137/68 92 2.0 03/24/16 13:14 36.5 83 20 115/61 99 2.0 03/24/16 12:46 37.4 81 20 133/74 99 2.0 03/24/16 12:30 36.8 72 20 115/59 99 2.0 03/24/16 12:14 36.8 86 20 121/66 03/24/16 11:50 36.7 89 20 114/61 100 2.0 03/24/16 11:24 36.6 79 20 123/69 99 2.0 03/24/16 10:26 36.5 80 20 111/64 100 2.0 03/24/16 09:58 36.6 71 20 137/76 99 2.0 03/24/16 09:25 36.8 71 20 133/72 99 2.0 03/24/16 09:13 36.5 71 20 133/73 99 2.0 03/24/16 08:50 36.7 71 20 123/69 03/24/16 08:26 99 Nasal Cannula 2.0 Physical Exam General Appearance: no apparent distress Eyes: normal inspection ENT: hearing grossly normal Neck: no JVD Respiratory/Chest: no respiratory distress, no accessory muscle use Cardiovascular: no JVD Abdomen: + pertinent finding (abdominal incision c/d/i) Extremities: normal inspection Neurologic/Psychiatric: alert, normal mood/affect, oriented x 3 Skin: normal color Laboratory Results Last 24 Hours Test 03/24/16 11:35 03/24/16 16:45 03/24/16 16:47 03/24/16 17:53 Bedside Glucose 263 mg/dl 285 mg/dl 261 mg/dl Hemoglobin 9.1 g/dL Hematocrit 26.9 % Test 03/24/16 20:52 03/24/16 22:32 03/25/16 05:56 Bedside Glucose 185 mg/dl Hemoglobin 9.4 g/dL 8.5 g/dL Hematocrit 27.8 % 25.3 % White Blood Count 7.25 K/uL Red Blood Count 2.84 M/uL Mean Corpuscular Volume 89.1 fL Mean Corpuscular Hemoglobin 29.9 pg Mean Corpuscular Hemoglobin Concent 33.6 g/dl Platelet Count 147 K/uL Mean Platelet Volume 8.8 fL Neutrophils (%) (Auto) 55.6 % Lymphocytes (%) (Auto) 30.3 % Monocytes (%) (Auto) 11.9 % Eosinophils (%) (Auto) 1.7 % Basophils (%) (Auto) 0.4 % Neutrophils # (Auto) 4.03 K/uL Lymphocytes # (Auto) 2.20 K/uL Monocytes # (Auto) 0.86 K/uL Eosinophils # (Auto) 0.12 K/uL Basophils # (Auto) 0.03 K/uL RDW Standard Deviation 49.9 fL RDW Coefficient of Variation 15.2 % Immature Granulocyte % (Auto) 0.1 % Immature Granulocyte # (Auto) 0.01 K/uL Hypersegmented Polys 1+ Sodium Level 140 mmol/L Potassium Level 4.3 mmol/L Chloride Level 103 mmol/L Carbon Dioxide Level 31 mmol/L Anion Gap 6.0 mmol/L Blood Urea Nitrogen 19 mg/dl Creatinine 1.10 mg/dl Est Creatinine Clear Calc Drug Dose 37.5 ml/min Estimated GFR () 56.9 Estimated GFR (Non- 49.1 BUN/Creatinine Ratio 17.3 Random Glucose 137 mg/dl Calcium Level 8.3 mg/dl Assessment and Plan POD #2 s/p Right HALN. AFVSS. Repeat H&H at noon today. If stable, will d/c home. If trending down, she will remain inpatient overnight. Encourage use of IS. Encourage ambulation to hallway.
[2016-03-25] MEDS ORDERED: ACET-749 PO ×2 (08:04)
[2016-03-25] MEDS ORDERED: CLC100 PO ×2 (08:04)
--- NOTE | 2016-03-25 08:08 | Discharge Instructions ---
Discharge Instructions Admission Reason for Admission: Right Renal Mass Discharge Discharge Diagnosis / Problem: Right renal mass Discharge Goals Goal(s): Decrease discomfort, Improve function, Increase independence, Improve disease control, Improve nutritional status, Therapeutic intervention Activity Recommendations Activity Limitations: per Instructions/Follow-up section Shower/Bathe: tomorrow 1. Do not lift >15lbs x 6 weeks. 2. No heavy exercise x 6 weeks. You may engage in light activity such as walking and stairs as tolerated. 3. Do not drive x [address] while taking narcotics. 4. Follow-up as scheduled. Please call our office at [phone] if you need to reschedule for any reason. 5. You may resume taking your Coumadin in 1 week. . . Current Hospital Diet Hospital Diet(s): Diabetes Type 2 Diet Discharge Diet Recommended Diet: Diabetes Type 2 Diet Procedures Procedures Performed: Right Laparoscopic Hand-Assisted Nephrectomy Pending Studies Studies pending at discharge: no Medical Emergencies . Who to Call and When: Medical Emergencies: If at any time you feel your situation is an emergency, please call 911 immediately. . Non-Emergent Contact Non-Emergency issues call your: Urologist Call Non-Emergent contact if: temperature is above 101.5, your pain is not controlled, your pain is worsening, your pain is unusual for you, your pain is concerning you, you have any medication questions . . "Provider Documentation" section prepared by Shanna Power. VTE Core Measure Inpt VTE Proph given/why not?: Unfractionated heparin SQ, SCD's [place] Drug Monitoring Program Search Results: patient reviewed within database, no issues identified
[2016-03-25] MEDS: LISINOPRIL 20 MG TAB PO SCH (09:28)
[2016-03-25] MEDS: ASPIRIN 81 MG ECTAB PO SCH (09:28)
[2016-03-25] MEDS: DOCUSATE SODIUM 100 MG CAP PO SCH (09:29)
[2016-03-25] MEDS: FUROSEMIDE 20 MG TAB PO SCH (09:29)
[2016-03-25] MEDS: INSULIN ASPART 100 UNITS/ML 3 ML PEN SC SCH ×2 (09:34→14:03)
[2016-03-25 12:30] LABS: HEMATOCRIT 28.9 % (37-47)
[2016-03-25 15:12] VITALS: BP 149/67; PULSE 74; TEMP 36.5; O2SAT 96
[2016-03-25 16:18] VITALS: BP 149/67; PULSE 74; TEMP 36.5; O2SAT 96
--- NOTE | 2016-03-27 14:46 | EDITING REQUIRED CODING QUERY ---
PATHOLOGY To promote full compliance with coding requirements relating to patient care, physician participation is requested in all cases of scheduling clerk uncertainty. Please assist us with the question(s) below: Dr. 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
--- NOTE | 2016-04-05 07:31 | Discharge Summary ---
Discharge Summary Admission Date: Mar 23, 2016 at 07:15 Discharge Date: Mar 25, 2016 Discharge Disposition: Home Principal Diagnosis: Right renal cell carcinoma Procedures: Right hand assisted laparoscopic radical nephrectomy Medication Reconciliation New Medications: Acetaminophen/Codeine (Tylenol W/Codeine #3) 300 Mg/30 Mg Tab 1-2 TAB PO Q4H PRN for Pain, #20 TAB 0 Refills Docusate Sodium (Docusate Sodium) 100 Mg Cap 100 MG PO BID PRN for Constipation, #60 CAP 0 Refills Continued Medications: Acetaminophen (Tylenol) 500 Mg Tab 1000 MG PO TID PRN for Pain, TAB Albuterol (Ventolin Hfa) 60 Puffs/5400 Mcg Aers 2 PUFF INH Q4H PRN for SOB/Wheezing Aspirin (Aspirin Ec) 81 Mg Tab 81 MG PO QAM Atenolol (Atenolol) 50 Mg Tab 50 MG PO QAM Atorvastatin (Lipitor) 40 Mg Tab 40 MG PO HS, TAB Ferrous Sulfate (Ferrous Sulfate) 325 Mg Tab 1 TAB PO QAM Furosemide (Lasix) 20 Mg Tab 20 MG PO DAILY, TAB Glipizide (Glucotrol) 10 Mg Tab 10 MG PO BID Levothyroxine Sodium (Synthroid) 100 Mcg Tab 100 MCG PO QAM Lisinopril (Lisinopril) 20 Mg Tab 20 MG PO QAM Metformin Hcl (Glucophage) 500 Mg Tab 500 MG PO BID, TAB Omeprazole (Prilosec) 20 Mg Capcr 20 MG PO QAM PRN for Dyspepsia, CAP Discontinued Medications: Warfarin Sod (Coumadin) 5 Mg Tab 5 MG PO MWF Warfarin Sod (Coumadin) 5 Mg Tab 2.5 MG PO 4XWK SUN,TUES,THURS,SAT HOLING SINCE 03/12/16 Hospital Course Admitted for R ABDIRASHID Nx - details of the procedure as dictated previously in the operative report, however, in summary, she tolerated the procedure very well. She progressed well overnight, and was symptomatically improving appropriately. On the morning of POD#1, her hct had declined significantly. She exhibited no signs of active bleeding aside from the lab change. Of note, she was very anemia (uncertain origin) prior to surgery and required pre-op transfusion. She received 2U PRBC on the morning of POD#1 and her Hct remained stable from there. On POD#2, she was stable for d/c home and was discharged. Total time spent on discharge = This includes examination of the patient, discharge planning, medication reconciliation, and communication with other providers. Discharge Instructions Please see previously written d/c instructions
== END 2016-03-25 17:12 | disposition home or self-care (01) | DRG 657 ==
LOC: ENRESERVDT → ENRESERVTM → C.ACU 05:20 → C.MSW 07:15
PROVIDERS: ADMIT Urology; ATTEND Urology
PROC: 0TB60ZZ Excision of Right Ureter, Open Approach (ICD-10-PCS; principal; 2016-03-23 07:30)
PROC: 0TT00ZZ Resection of Right Kidney, Open Approach (ICD-10-PCS; principal; 2016-03-23 07:30)
DX: C64.1 Malignant neoplasm of right kidney, except renal pelvis (principal); I50.30 Unspecified diastolic (congestive) heart failure; D50.9 Iron deficiency anemia, unspecified; E11.9 Type 2 diabetes mellitus without complications; I25.10 Atherosclerotic heart disease of native coronary artery without angina pectoris; I11.0 Hypertensive heart disease with heart failure; I48.91 Unspecified atrial fibrillation; J45.909 Unspecified asthma, uncomplicated; E78.5 Hyperlipidemia, unspecified; I08.1 Rheumatic disorders of both mitral and tricuspid valves; R60.0 Localized edema; K21.9 Gastro-esophageal reflux disease without esophagitis; E03.9 Hypothyroidism, unspecified; Z95.1 Presence of aortocoronary bypass graft; Z79.01 Long term (current) use of anticoagulants; Z79.82 Long term (current) use of aspirin; Z79.84 Long term (current) use of oral hypoglycemic drugs; Z79.899 Other long term (current) drug therapy

== ENCOUNTER → 2016-03-31 | Outpatient (CLI) | payer OTHER ==
[~2016-03-31] MED LIST changes: +ACET-749 PO; +CLC100 PO
[2016-03-31 10:46] LABS: BASO % 0.4 %; BASO ABS # 0.04 K/uL (0-0.2); COMPLETE YES; EOS % 1.6 %; HEMATOCRIT 31.6 % (37-47); IG% 0.3 %; LYMPH % 17.2 %; LYMPH ABS # 1.75 K/uL (1.2-3.4); MEAN CELL VOLUME 97.2 fL (80-100); MEAN CORPUSCULAR HEMOGLOBIN 30.8 pg (25-34); MEAN CORPUSCULAR HGB CONC 31.6 g/dl (32-36); MEAN PLATELET VOLUME 9.9 fL (7.4-10.4); MONO % 11.4 %; NEUT % 69.1 %; PLATELET COUNT 290 K/uL (130-400); RED BLOOD COUNT 3.25 M/uL (4.2-5.4); WHITE BLOOD COUNT 10.19 K/uL (4.8-10.8)
== END | disposition home or self-care (01) ==
LOC: C.LAB 09:16
PROVIDERS: ATTEND Urology
DX: N28.89 Other specified disorders of kidney and ureter (principal)

== ENCOUNTER → 2016-10-04 | Outpatient (CLI) | payer OTHER ==
[~2016-10-04] MED LIST changes: -CMD5 PO
[2016-10-04 12:49] LABS: ALT/SGPT 106 U/L (12-78); AST/SGOT 112 U/L (15-37); BLOOD UREA NITROGEN 22 mg/dl (7-18); CALCIUM 9.6 mg/dl (8.5-10.1); CARBON DIOXIDE 32 mmol/L (21-32); CHLORIDE 103 mmol/L (98-107); GLUCOSE 228 mg/dl (70-99); POTASSIUM 4.9 mmol/L (3.5-5.1); SODIUM 138 mmol/L (136-145)
[2016-10-04 12:52] LABS: ALB/GLOB RATIO 0.6 (0.9-2); ALKALINE PHOSPHATASE 121 U/L (45-117)
== END | disposition home or self-care (01) ==
LOC: C.LAB 09:48
PROVIDERS: ATTEND Urology
DX: C64.9 Malignant neoplasm of unspecified kidney, except renal pelvis (principal)

== ENCOUNTER → 2016-10-20 | Outpatient (CLI) | payer OTHER ==
[~2016-10-20] MED LIST changes: +OPTIRAY 320 IV PRN
--- NOTE | 2016-10-20 10:08 | DIAGNOSTIC IMAGING REPORT ---
CT SCAN OF THE ABDOMEN AND PELVIS COMBO RENAL MASS PROTOCOL CLINICAL HISTORY: Renal cell carcinoma. COMPARISON STUDY: Abdominal CT dated 02/24/2016. TECHNIQUE: Before and following the IV administration of 100 cc of Optiray 320, CT scan of the abdomen and pelvis is performed from the lung bases to the proximal femora using the renal mass protocol. Images are reviewed in the axial, sagittal, and coronal planes. IV contrast was administered without complication. Automated dose control exposure was utilized. A dose lowering technique was utilized adhering to the principles of ALARA. CT DOSE: 849.79 mGy.cm FINDINGS: Lung bases: The patient is status post midline sternotomy. The heart is markedly enlarged and without pericardial effusion. Emphysema is suggested. Linear scarring versus atelectasis is present at both lung bases. No airspace consolidation or pleural effusion is identified. Liver: The contrast-enhanced liver is cirrhotic in morphology and heterogeneous in attenuation. There is nodularity of the hepatic surface contour. There is mild central intrahepatic biliary ductal dilatation. The hepatic veins and portal veins are patent. Gallbladder: Not identified and presumed surgically absent. Spleen: Normal in size and attenuation. Pancreas: Moderately atrophic and grossly unremarkable. Adrenal glands: Unremarkable. Kidneys: The right kidney is surgically absent. There are at least 3 soft tissue nodules identified in the right renal fossa that are highly concerning for recurrent/residual disease. A 2.6 x 2.4 cm nodule is seen on image #113, a 1.5 cm nodule is seen on image #119, and a 1.9 cm nodule is seen on image #126. The left kidney demonstrates mild cortical atrophy and is without hydronephrosis. Is homogeneous enhancement and excretion from the left kidney. No left renal calculi are identified on the unenhanced series. There is advanced renovascular calcification. No enhancing mass lesion is identified in the left kidney. There is no evidence of urothelial lesion within the left renal pelvis or along the course of left ureter. There is mild tortuosity of the distal left ureter. Abdominal vasculature: The abdominal aorta is normal in course and caliber noting moderate to advanced atherosclerotic calcification. A densely calcified splenic artery aneurysm as seen on image 93 measuring 1.5 cm. Bowel: The small bowel and colon are normal in course and caliber. A small duodenal diverticulum is incidentally noted. There is moderate sigmoid diverticulosis without CT evidence of acute diverticulitis. Moderate colonic fecal retention is identified. The appendix is not identified and reported surgically absent. Peritoneum: There is no intraperitoneal free air or abdominal ascites. There is a 1.7 cm enhancing peritoneal nodule identified along the right lower quadrant abdominal wall below the right lobe of the liver on image #181. There is a 2.8 x 1.3 cm implant is identified along the medial right lobe of liver on image #100. A 1.5 cm implant is seen in the pelvis adjacent the sigmoid colon on delayed image #282. A fat-containing ventral hernia is noted in the pelvis. Lymphadenopathy: Mildly enlarged portacaval and portal hepatic lymph nodes measure up to 1.3 cm in short axis. These are nonspecific and may be related to cirrhosis. Prominent gastrohepatic nodes measure up to 8 mm in short axis. No retroperitoneal adenopathy is identified. Pelvic viscera: There is an air-fluid level present within the bladder. The bladder is otherwise normal as visualized. The uterus is surgically absent. No adnexal lesion is seen. There are small bilateral fat-containing inguinal hernias. Skeletal structures: The skeletal structures are heterogeneously osteopenic. This degrades assessment for bony metastatic disease. No definite lytic or or blastic lesions are seen. Moderate lumbosacral spondylosis is observed. IMPRESSION: 1. There are postoperative changes from right nephrectomy. 2. There is evidence of recurrent/residual tumor in the nephrectomy bed with several enhancing nodules identified. 3. 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 Soft tissue implants are identified along the medial right lobe of the liver, the right lower quadrant abdominal wall, and in the pelvis. No abdominal ascites is seen. 4. No enhancing mass lesion is identified in the left kidney and there is no evidence of urothelial lesion within the left renal pelvis or along the course of left ureter. 5. Cirrhotic liver morphology. 6. Mildly enlarged lymph nodes in the jose hepatis and portacaval region are nonspecific and likely related to cirrhosis. No retroperitoneal adenopathy is seen. 7. Cardiomegaly and suspect emphysema. 8. There is a peripherally calcified splenic artery aneurysm. 9. Moderate sigmoid diverticulosis without CT evidence of acute diverticulitis. 10. There is a large air-fluid level in the bladder. This may be related to recent instrumentation. Correlation with clinical findings and urinalysis will be required. 11. Additional findings as above. Electronically signed by: Hipolito Olson M.D. 10/20/2016 10:07 AM Dictated Date/Time: 10/20/2016 9:48 AM
== END | disposition home or self-care (01) ==
LOC: C.CTS 09:08
PROVIDERS: ATTEND Urology
DX: C64.9 Malignant neoplasm of unspecified kidney, except renal pelvis (principal)

== ENCOUNTER → 2016-10-22 | Outpatient (CLI) | payer OTHER ==
[~2016-10-22] MED LIST changes: -OPTIRAY 320 IV PRN
[2016-10-22 12:24] LABS: BLOOD UREA NITROGEN 25 mg/dl (7-18); BUN/CREATININE RATIO 19.2 (10-20)
== END | disposition home or self-care (01) ==
LOC: C.LAB 09:58
PROVIDERS: ATTEND Urology
DX: C64.9 Malignant neoplasm of unspecified kidney, except renal pelvis (principal)

== ENCOUNTER → 2016-10-25 | Outpatient (CLI) | payer OTHER ==
--- NOTE | 2016-10-25 13:52 | DIAGNOSTIC IMAGING REPORT ---
CT OF THE CHEST WITH IV CONTRAST CLINICAL HISTORY: Renal cell carcinoma. Evaluate for metastatic disease. COMPARISON STUDY: Chest radiograph March 17, [address] of the abdomen and pelvis October 20, 2016. TECHNIQUE: Following IV administration of 65 mL of Optiray-320, helical axial images of the chest were obtained. Sagittal and coronal reconstructions were viewed as well as maximal intensity projections on an independent 3-D workstation. A dose lowering technique was utilized adhering to the principles of ALARA. CT DOSE: 262.24 mGycm FINDINGS: No enlarged axillary, mediastinal or hilar lymph nodes are present. There are median sternotomy wires and postsurgical findings consistent with bypass grafting. The heart is moderately enlarged. Note is made of a prominent right cardiophrenic angle lymph node shown image 198 of 271 that measures 8 mm in size. This is slightly increased in size since CT of February 24, 2016. There is a calcified granuloma within the right lower lobe. Note is made of a noncalcified 5 mm subpleural nodule within left lower lobe shown on image 124 of 271. Several calcified subcarinal lymph nodes are present. No suspicious osseous lesions are shown within the bony thorax by CT. Images of the upper abdomen partially visualize several peripherally enhancing lesions within the right nephrectomy bed along the liver capsule which are better depicted on CT of October 20, 2016. IMPRESSION: 1. Indeterminate 5 mm left lower lobe nodule. A follow-up chest CT in 6 months could be obtained to ensure stability. 2. Prominent right cardiophrenic angle lymph node which has slightly increased in size since exam of February 24, 2016. This can be assessed on follow-up chest CT. 3. Partial visualization of suspected recurrent tumor within the right nephrectomy bed which is better depicted on the abdominal CT of October 20, 2016. Electronically signed by: Robert Seymour M.D. 10/25/2016 1:50 PM Dictated Date/Time: 10/25/2016 1:01 PM
== END | disposition home or self-care (01) ==
LOC: C.CTS 12:10
PROVIDERS: ATTEND Urology
DX: C64.1 Malignant neoplasm of right kidney, except renal pelvis (principal); R93.421 Abnormal radiologic findings on diagnostic imaging of right kidney; R91.1 Solitary pulmonary nodule; R59.0 Localized enlarged lymph nodes; Z90.5 Acquired absence of kidney

== ENCOUNTER 2017-01-04 14:04 | Inpatient (IN) | payer OTHER ==
[~2017-01-04] VITALS: Ht 157.5 cm; Wt 54.1 kg
[2017-01-04] MEDS ORDERED: ACT300 PO (15:56)
[2017-01-04] MEDS ORDERED: WARF5TAB7 PO (15:56)
--- NOTE | 2017-01-04 16:27 | DIAGNOSTIC IMAGING REPORT ---
CHEST ONE VIEW PORTABLE HISTORY: Cough. COMPARISON: Chest 03/17/2016. FINDINGS: The heart remains mildly enlarged. Poststernotomy changes. No new focal lung consolidations to suggest pneumonia. No evidence for pulmonary edema. No pleural effusions. No pneumothorax. IMPRESSION: Stable mild cardiomegaly. Otherwise, no acute process within the chest. Electronically signed by: Bradley Moreira M.D. 01/04/2017 4:26 PM Dictated Date/Time: 01/04/2017 4:25 PM
[2017-01-04 16:29] LABS: BASO % 0.4 %; BASO ABS # 0.04 K/uL (0-0.2); COMPLETE YES; EOS % 0.5 %; HEMATOCRIT 41.8 % (37-47); IG% 0.3 %; LYMPH % 24.3 %; LYMPH ABS # 2.65 K/uL (1.2-3.4); MEAN CELL VOLUME 92.5 fL (80-100); MEAN CORPUSCULAR HEMOGLOBIN 32.5 pg (25-34); MEAN CORPUSCULAR HGB CONC 35.2 g/dl (32-36); MEAN PLATELET VOLUME 9.9 fL (7.4-10.4); MONO % 5.8 %; NEUT % 68.7 %; PLATELET COUNT 241 K/uL (130-400); RED BLOOD COUNT 4.52 M/uL (4.2-5.4); WHITE BLOOD COUNT 10.92 K/uL (4.8-10.8)
--- NOTE | 2017-01-04 16:38 | DIAGNOSTIC IMAGING REPORT ---
HEAD WITHOUT CONTRAST (CT) CLINICAL HISTORY: 76 years-old Female with confusion/guerrero eval for bleed. Acute confusion with headache. TECHNIQUE: Multiple axial CT images of the head were obtained without contrast. A dose lowering technique was utilized adhering to the principles of ALARA. CT DOSE: 1449.67 mGy.cm COMPARISON: None. FINDINGS: Study is mildly limited secondary to motion artifact. No acute intracranial hemorrhage, midline shift, mass, large territorial ischemia or abnormal extra-axial collection. Mild atrophy with ex vacuo ventriculomegaly. Background chronic microvascular ischemic changes. Vascular calcifications are seen at the level of the skull base. The calvarium is intact. The paranasal sinuses, mastoid air cells, and middle ear cavities are clear. Prior bilateral cataract repair. IMPRESSION: 1. No acute intracranial abnormality. 2. Atrophy with chronic microvascular ischemic changes. The above report was generated using voice recognition software. It may contain grammatical, syntax or spelling errors. Electronically signed by: Joe Fernandez M.D. 01/04/2017 4:37 PM Dictated Date/Time: 01/04/2017 4:34 PM
[2017-01-04 16:41] LABS: ISTAT CREATININE 1.4 mg/dl (0.6-1.3); ISTAT IONIZED CALCIUM 1.1 mmol/l (1.12-1.32)
[2017-01-04] MEDS ORDERED: ALBUTEROL 0.5% NEB SOLN 2.5 MG/0.5 ML VIAL INH STA (16:41)
[2017-01-04] MEDS ORDERED: DEXTROSE 50% 50 ML SYR IV STA (16:41)
[2017-01-04] MEDS ORDERED: NovoLIN-R INSULIN PER UNIT CHARGE IV STA (16:41)
[2017-01-04] MEDS ORDERED: CALCIUM GLUCONATE 10% 10 ML VIAL IV STA (16:42)
[2017-01-04] MEDS ORDERED: LACTULOSE SYRUP 20 GM/30 ML UDC PO STA (16:52)
[2017-01-04 16:57] LABS: ALKALINE PHOSPHATASE 99 U/L (45-117); ALT/SGPT 47 U/L (12-78); BLOOD UREA NITROGEN 33 mg/dl (7-18); BUN/CREATININE RATIO 21.8 (10-20); CALCIUM 9.1 mg/dl (8.5-10.1); CARBON DIOXIDE 24 mmol/L (21-32); CHLORIDE 100 mmol/L (98-107); CREATININE 1.51 mg/dl (0.60-1.20); GLUCOSE 95 mg/dl (70-99); SODIUM 133 mmol/L (136-145)
[2017-01-04 17:27] LABS: PARTIAL THROMBOPLASTIN RATIO 1.9; PROTHROMBIN TIME (PATIENT) 97.6 SECONDS (9.0-12.0)
[2017-01-04 17:38] LABS: INR > 8.0 (0.9-1.1)
[2017-01-04] MEDS ORDERED: PHYTONADIONE 5 MG TAB PO STA (17:43)
[2017-01-04 17:47] LABS: ALT/SGPT 41 U/L (12-78); BLOOD UREA NITROGEN 33 mg/dl (7-18); BUN/CREATININE RATIO 22.8 (10-20); CALCIUM 9.3 mg/dl (8.5-10.1); CARBON DIOXIDE 25 mmol/L (21-32); CHLORIDE 101 mmol/L (98-107); CREATININE 1.46 mg/dl (0.60-1.20); GLUCOSE 67 mg/dl (70-99); MAGNESIUM 1.5 mg/dl (1.8-2.4); POTASSIUM 5.3 mmol/L (3.5-5.1); SODIUM 134 mmol/L (136-145)
[2017-01-04 17:50] LABS: ALKALINE PHOSPHATASE 91 U/L (45-117); AST/SGOT 51 U/L (15-37)
[2017-01-04 18:24] VITALS: BP 171/82; PULSE 100; TEMP 37.1; O2SAT 96
[2017-01-04] MEDS ORDERED: ONDANSETRON INJ 2 MG/ML 2 ML VIAL IV PRN (18:45)
[2017-01-04] MEDS ORDERED: GLUCAGON FOR INJ 1 MG VIAL SQ PRN (19:00)
[2017-01-04] MEDS ORDERED: GLUCOSE 40% GEL 15 GM TUBE ONE (19:00)
[2017-01-04] MEDS ORDERED: GLUCOSE 10 TABS/TUBE PO PRN (19:00)
[2017-01-04] MEDS ORDERED: GLUCOSE 40% GEL 15 GM TUBE PO PRN (19:00)
[2017-01-04] MEDS ORDERED: DEXTROSE 50% 50 ML SYR IV PRN (19:00)
[2017-01-04 19:16] VITALS: BP 133/67; PULSE 110
[2017-01-04] MEDS ORDERED: AXIT1TAB PO (19:34)
[2017-01-04 19:50] VITALS: BP 133/67; PULSE 110; TEMP 37.1; O2SAT 96; BMI 22.2
[2017-01-04] MEDS ORDERED: IV FLUIDS COMPLETED PRN (20:00)
--- NOTE | 2017-01-04 20:09 | EMERGENCY ROOM VISIT NOTE ---
History Report prepared by Brittani: Rafat Dailey Under the Supervision of: Dr. Anil Elliott M.D. First contact with patient: 15:34 Chief Complaint: ABNORMAL LABS Stated Complaint: ABNORMAL LABS History of Present Illness The patient is a 76 year old female who presents to the Emergency Room for evaluation of hyperkalemia. She states that her potassium was found to be around 6 this morning. She has a history of a nephrectomy due to a cancerous mass. She denies any fevers, diarrhea, chest pain, SOB, or lightheadedness. The patient has complained of a headache recently. Per son, the patient has been confused for the past week. He states that she is unable to find her clothes, and is having trouble understanding things. He notes that this is why the patient had blood work today. Source of History: patient, family (son) Onset: this morning Symptom Intensity: around 6 Quality: other (hyperkalemia) Timing: constant Associated Symptoms: + headache, No fevers, No chest pain, No SOB, No diarrhea Note: Additional symptoms: confusion. She denies any lightheadedness. Review of Systems See HPI for pertinent positives & negatives. A total of 10 systems reviewed and were otherwise negative. 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 Social History Smoking Status: Never Smoker Marital Status: Occupation Status: retired Current/Historical Medications Scheduled Atenolol (Atenolol), 50 MG PO QAM Atorvastatin (Lipitor), 40 MG PO HS Axitinib (Inlyta), 3 TABS PO BID Glipizide (Glucotrol), 10 MG PO BID Levothyroxine Sodium (Synthroid), 100 MCG PO QAM Lisinopril (Lisinopril), 20 MG PO QAM Metformin Hcl (Glucophage), 500 MG PO BID Warfarin Sod (Jantoven), 5 MG PO DAILY Allergies Coded Allergies: Sulfamethoxazole w/Trimethoprim (Verified Adverse Reaction, Mild, N/V, ) Physical Exam Vital Signs Date Time Temp Pulse Resp B/P (MAP) Pulse Ox O2 Delivery O2 Flow Rate FiO2 01/04/17 15:27 19 141/104 95 Room Air 01/04/17 14:11 36.8 88 16 108/76 95 Room Air Physical Exam Constitutional: Vital signs reviewed. Eyes: Pupils are equal round reactive to light. Conjunctiva are noninjected. ENT: Pharynx is clear without erythema or exudate. Mucous membranes are moist. Neck supple without meningeal signs. Respiratory: Clear to auscultation bilaterally. Breath sounds are equal bilaterally. Cardiovascular: Irregularly irregular rhythm. Normal rate. No rubs or gallops. GI: Soft, nondistended and nontender. Bowel sounds are present. Musculoskeletal: No peripheral edema. No lower extremity tenderness. Integumentary: No cyanosis. Neurological: The patient is awake and alert. No focal deficits. Psychiatric: Normal affect. Medical Decision & Procedures ER Provider Diagnostic Interpretation: Radiology results as stated below per my review and the radiologist's interpretation: HEAD WITHOUT CONTRAST (CT) FINDINGS: Study is mildly limited secondary to motion artifact. No acute intracranial hemorrhage, midline shift, mass, large territorial ischemia or abnormal extra-axial collection. Mild atrophy with ex vacuo ventriculomegaly. Background chronic microvascular ischemic changes. Vascular calcifications are seen at the level of the skull base. The calvarium is intact. The paranasal sinuses, mastoid air cells, and middle ear cavities are clear. Prior bilateral cataract repair. IMPRESSION: 1. No acute intracranial abnormality. 2. Atrophy with chronic microvascular ischemic changes. The above report was generated using voice recognition software. It may contain grammatical, syntax or spelling errors. Electronically signed by: Joe Fernandez M.D. 01/04/2017 4:37 PM CHEST ONE VIEW PORTABLE FINDINGS: The heart remains mildly enlarged. Poststernotomy changes. No new focal lung consolidations to suggest pneumonia. No evidence for pulmonary edema. No pleural effusions. No pneumothorax. IMPRESSION: Stable mild cardiomegaly. Otherwise, no acute process within the chest. Electronically signed by: Bradley Moreira M.D. 01/04/2017 4:26 PM Laboratory Results 01/04/17 16:10 Red Blood Count 4.52, Mean Corpuscular Volume 92.5, Mean Corpuscular Hemoglobin 32.5, Mean Corpuscular Hemoglobin Concent 35.2, Mean Platelet Volume 9.9, Neutrophils (%) (Auto) 68.7, Lymphocytes (%) (Auto) 24.3, Monocytes (%) (Auto) 5.8, Eosinophils (%) (Auto) 0.5, Basophils (%) (Auto) 0.4, Neutrophils # (Auto) 7.52, Lymphocytes # (Auto) 2.65, Monocytes # (Auto) 0.63, Eosinophils # (Auto) 0.05, Basophils # (Auto) 0.04 01/04/17 16:51 Test 01/04/17 16:10 01/04/17 16:13 01/04/17 16:18 01/04/17 16:51 White Blood Count 10.92 K/uL (4.8-10.8) Red Blood Count 4.52 M/uL (4.2-5.4) Hemoglobin 14.7 g/dL (12.0-16.0) Hematocrit 41.8 % (37-47) Mean Corpuscular Volume 92.5 fL (80-100) Mean Corpuscular Hemoglobin 32.5 pg (25-34) Mean Corpuscular Hemoglobin Concent 35.2 g/dl (32-36) Platelet Count 241 K/uL (130-400) Mean Platelet Volume 9.9 fL (7.4-10.4) Neutrophils (%) (Auto) 68.7 % Lymphocytes (%) (Auto) 24.3 % Monocytes (%) (Auto) 5.8 % Eosinophils (%) (Auto) 0.5 % Basophils (%) (Auto) 0.4 % Neutrophils # (Auto) 7.52 K/uL (1.4-6.5) Lymphocytes # (Auto) 2.65 K/uL (1.2-3.4) Monocytes # (Auto) 0.63 K/uL (0.11-0.59) Eosinophils # (Auto) 0.05 K/uL (0-0.5) Basophils # (Auto) 0.04 K/uL (0-0.2) RDW Standard Deviation 50.7 fL (36.4-46.3) RDW Coefficient of Variation 15.0 % (11.5-14.5) Immature Granulocyte % (Auto) 0.3 % Immature Granulocyte # (Auto) 0.03 K/uL (0.00-0.02) Ammonia 170.0 umol/L (11-32) Thyroid Stimulating Hormone (TSH) 0.450 uIu/ml (0.300-4.500) Free Thyroxine 1.94 ng/dl (0.80-1.60) Bedside Troponin I 0.060 ng/ml (0-0.045) Bedside Hemoglobin 16.0 g/dl (12.0-16.0) Bedside Hematocrit 47 % (37-47) Bedside Sodium 133 mEq/L (135-144) Bedside Potassium 6.9 mEq/L (3.3-5.0) Bedside Chloride 98 mEq/L (101-112) Bedside Total CO2 28 mEq/l (24-31) Bedside Blood Urea Nitrogen 49 mg/dl (7-18) Bedside Creatinine 1.4 mg/dl (0.6-1.3) Bedside Glucose (other) 97 mg/dl (70-99) Bedside Ionized Calcium (Mauri) 1.10 mmol/l (1.12-1.32) Prothrombin Time 97.6 SECONDS (9.0-12.0) Prothromb Time International Ratio > 8.0 (0.9-1.1) Activated Partial Thromboplast Time 50.4 SECONDS (21.0-31.0) Partial Thromboplastin Ratio 1.9 Anion Gap 7.0 mmol/L (3-11) Estimated GFR () 40.1 Estimated GFR (Non- 34.6 BUN/Creatinine Ratio 22.8 (10-20) Calcium Level 9.3 mg/dl (8.5-10.1) Magnesium Level 1.5 mg/dl (1.8-2.4) Total Bilirubin 0.6 mg/dl (0.2-1) Direct Bilirubin 0.2 mg/dl (0-0.2) Aspartate Amino Transf (AST/SGOT) 51 U/L (15-37) Alanine Aminotransferase (ALT/SGPT) 41 U/L (12-78) Alkaline Phosphatase 91 U/L (45-117) Troponin I 0.098 ng/ml (0-0.045) Total Protein 8.3 gm/dl (6.4-8.2) Albumin 3.4 gm/dl (3.4-5.0) Laboratory results as reviewed by me. Medications Administered Medications (Trade) Dose Ordered Sig/Hubert Route Start Time Stop Time Status Last Admin Dose Admin Insulin Human Regular (novoLIN-R U-100 PER UNIT) 10 units NOW STAT IV 01/04/17 16:41 01/04/17 16:42 DC 01/04/17 16:59 10 UNITS Dextrose (Dextrose 50% 50ML Syringe) 50 ml NOW STAT IV 01/04/17 16:41 01/04/17 16:42 DC 01/04/17 17:01 50 ML Albuterol Sulfate (Ventolin 0.5% 2.5MG/0.5ML Neb) 2.5 mg NOW STAT INH 01/04/17 16:41 01/04/17 16:42 DC 01/04/17 17:00 2.5 MG Calcium Gluconate (Calcium Gluconate 10%) 1,000 mg NOW STAT IV 01/04/17 16:42 01/04/17 16:43 DC 01/04/17 17:00 1,000 MG Lactulose (Chronulac Syrup) 30 gm NOW STAT PO 01/04/17 16:52 01/04/17 16:53 DC 01/04/17 17:35 30 GM ECG Indication: other (hyperkalemia) Rate (beats per minute): 85 Rhythm: atrial fibrillation Findings: T-wave inversion (Lateral), other (significant motion artifact limiting interpretation) ED Course 1534: The patient was evaluated in room C12B. A complete history and physical exam was performed. 1640: The patient's potassium was 6.9 by ISTAT. 1641: Ordered Ventolin 0.5% 2.5 mg/0.5 mL INH, Dextrose 50% 50 mL IV, Novolin-R U-100 per unit 10 units IV, Calcium Gluconate 10% 1000 mg IV, Chronulac Syrup 30 mg PO. 1646: I reassessed the patient. I discussed her test results and the treatment plan with her. She verbalized agreement and understanding. The patient will be evaluated for further management. Medical Decision This is a 76-year-old female who presents with elevated potassium and change in mental status. Differential diagnosis includes hemarthrosis, renal failure, hyperkalemia, intracranial hemorrhage, intracranial mass, hepatic encephalopathy. I did perform a limited focused review of portions of the patient's old chart on the electronic medical record. The patient has had no recent pertinent visits to this hospital. I did evaluate the patient as noted above. The patient presents with a potassium of over 6 at her doctor's office. She was sent here for evaluation. Her only symptoms are increased confusion over the past week. IV access was established. The patient was placed on a continuous electromedical equipment repairer. The patient monitor kept reporting a heart rate of over 180. This is not coincide with her pulse EKG. There was some sort of artifact on the monitor. I did order and personally review the patient's 12-lead EKG and chest x-ray as described above. The patient has atrial fibrillation but does not have any widening QRS or hyperacute T waves. I did order and review the patient's blood work as noted in the electronic medical record. I-STAT labs demonstrated a potassium is 6.9. I did immediately treat patient with IV insulin and dextrose. She was also given albuterol nebulizer. She was also given calcium gluconate IV. Her ammonia level was 170. She does have a history of hepatic disease. This is likely the cause of her confusion. She was given lactulose orally. I did order a CT of the head. I did review the images myself as well as the radiology report as described above. There is no evidence of acute intracranial hemorrhage. I did reassess the patient. She appears more confused. I did discuss the test results with her family. I did discuss case with the hospitalist and block and case maker. Medication Reconcilliation Current Medication List: was personally reviewed by me Blood Pressure Screening Patient's blood pressure: Elevated blood pressure Consults Time Called: 164 Consulting Physician: Valerie Lara PA-C -[facility] Returned Call: [phone] I spoke with Valerie Lara PA-C of [facility]. We discussed the patient and her results. The patient will be further evaluated by [facility]. Impression Primary Impression: Hyperkalemia Additional Impression: Hepatic encephalopathy Critical Care I have personally spent 35 minutes of critical care time in the direct management of this patient. This includes bedside care, interpretation of diagnostic studies and testing, discussion with consultants and patient, and other required patient management activities. This time is in excess of all separately billable procedures. Scribe Attestation The scribe's documentation has been prepared under my direct and personally reviewed by me in its entirety. I confirm that the note above accurately reflects all work, treatment, procedures, and medical decision making performed by me. Departure Information Dispostion Being Evaluated By Hospitalist Referrals Alessia Ward D.O. (PCP) Patient Instructions My [facility] Problem Qualifiers
[2017-01-04] MEDS: LORAZEPAM 0.5 MG TAB PO PRN (20:56)
[2017-01-04] MEDS: ATORVASTATIN 20 MG TAB PO SCH (20:56)
[2017-01-04] MEDS: ACETAMINOPHEN 325 MG TAB PO PRN (20:57)
--- NOTE | 2017-01-04 21:08 | History and Physical ---
History & Physical Date & Time of Service: Jan 04, 2017 at 19:12 Chief Complaint: Hyperkalemia Primary Care Physician: Alessia Ward D.O. History of Present Illness Source: family Pt is 76 y/o F with hx renal cell CA with hx R sided resection with recent recurrence in that region and 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 Hx cirrhosis, autoimmune hepatitis followed by geraldo RODGERS, holding on biopsy secondary to active CA. Hx a-fib, CAD s/p CABG 1995, DM II, hyperlipidemia, hypothyroidism. Presents with son with c/o new onset confusion x 1 week and elevated K of 6 on out pt labs today. Hx obtained from son as pt confused and cannot give hx. Son denies hx confusion in past and states pt at baseline pt is ambulatory, self completes her ADL's, cooks meals daily, and takes care of her own meds. One week ago he noticed pt started to get confused to time and place and this has progressed and pt now irritable, combative. Pt ate little bit of toast this am, hasn't eaten since. Thinks pt taking her meds past couple of days and reports that she took her Coumadin this am (son is unsure of the dose). Pt was states pt was started on Axitinib 2 weeks ago for her renal cell CA (has not been on this before). Son denies any known falls or trauma. He hasn't noticed pt having any fever/chills, diaphoresis, vomiting, syncope, noted SOB, cough, choking, rhinorrhea, extremity edema, rashes. Pt had labs this am showing K of 6 and was sent to ER. In ER POC K was 6.9 and pt was given Calcium gluconate, insulin-R 10 units IV, dextrose, albuterol neb for hyperkalemia. (serum was hemolyzed and repeat K was 5.3). Ammonia was 170. BUN: 33, CR: 1.5 (past month has been ~1.3, previous ~1.0). INR:8. Troponin 0.098, EKG: a-fib, no peaked T waves. Negative head CT and CXR: stable mild cardiomegaly, no acute process. Pt had MRI yesterday: no evidence of metastatic disease, moderately empty sella turcica unchanged since 2013, small old lacunar infarct in anterior left basal ganglionic region, mild-moderate chronic white matter microvascular ischemic changes. 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 03/2016 Status: Chronic (3) History of partial hysterectomy Status: Chronic (4) Hx of appendectomy Status: Chronic (5) Hx of CABG Status: Chronic (6) S/P cholecystectomy Status: Chronic Family History FH gastric disorder - mother had gastric surgery MOTHER FH: COPD (chronic obstructive pulmonary disease) FATHER FH: heart disease FATHER Social History Smoking Status: Never Smoker Smokeless Tobacco Use: No Alcohol Use: none Drug Use: none Marital Status: Housing status: lives with family Occupational Status: retired Allergies Coded Allergies: Sulfamethoxazole w/Trimethoprim (Verified Adverse Reaction, Mild, N/V, ) Home Medications Scheduled Atenolol (Atenolol), 50 MG PO QAM Atorvastatin (Lipitor), 40 MG PO HS Axitinib (Inlyta), 3 TABS PO BID Glipizide (Glucotrol), 10 MG PO BID Levothyroxine Sodium (Synthroid), 100 MCG PO QAM Lisinopril (Lisinopril), 20 MG PO QAM Metformin Hcl (Glucophage), 500 MG PO BID Warfarin Sod (Jantoven), 5 MG PO DAILY Review of Systems See HPI for pertinent positives & negatives, unable to further assess secondary to pt's confusion Physical Exam Vital Signs Date Time Temp Pulse Resp B/P (MAP) Pulse Ox O2 Delivery O2 Flow Rate FiO2 10/17/17 18:24 37.1 100 18 171/82 (111) 96 Room Air 01/04/17 17:32 101 01/04/17 17:13 94 20 150/100 95 Room Air 01/04/17 15:27 19 141/104 95 Room Air 01/04/17 14:11 36.8 88 16 108/76 95 Room Air General Appearance: WD/WN, + pertinent finding (Pt very confused, repeatedly yelling "help me", trying to take off BP cuff, kicking legs) Head: normocephalic, atraumatic Eyes: normal inspection, PERRL, EOMI (fairly good EOM exam with pt's cooperation), sclerae normal ENT: hearing grossly normal, TMs normal, pharynx normal, + pertinent finding ( no rhinorrhea, no epistaxis) Neck: supple, no adenopathy, no JVD, trachea midline Respiratory/Chest: normal breath sounds (Difficult to fully auscultate lung sounds as pt uncooperative and yelling, however no wheezing/rhonchi/rales noted ), no respiratory distress, no accessory muscle use Cardiovascular: no JVD, normal peripheral pulses, + irregularly irregular, + pertinent finding (no murmur appreciated, pt difficult to auscultate secondary to unwillingness and yelling ) Abdomen/GI: normal bowel sounds, soft, + pertinent finding (difficult to assess if tender, as pt yells anywhere touch her, no rigidity, non-distended) Back: normal inspection Extremities/Musculoskelatal: normal capillary refill, no pedal edema, + pertinent finding (limited ROM R shoulder and R elbow (son states this is chronic), otherwise moving left upper extremity and bilaterally lower extremities, unable to assess if any tenderness to palpation as pt yells with any touch. Pedal pushes intact) Neurologic/Psych: alert, + pertinent finding (Disoriented. Oriented to person only. Yelling random phrases. Difficult to fully assess. No facial droop, negative babinski) Skin: warm/dry (no jaundice. +yellow green ecchymosis to mid distal sternum. + few approx 1cm ecchymosis to bilateral forearms) Diagnostics Laboratory Results Results Past 24 Hours Test 01/04/17 16:10 10/17/17 16:13 01/04/17 16:18 01/04/17 16:51 Range/Units White Blood Count 10.92 4.8-10.8 K/uL Red Blood Count 4.52 4.2-5.4 M/uL Hemoglobin 14.7 12.0-16.0 g/dL Hematocrit 41.8 37-47 % Mean Corpuscular Volume 92.5 80-100 fL Mean Corpuscular Hemoglobin 32.5 25-34 pg Mean Corpuscular Hemoglobin Concent 35.2 32-36 g/dl Platelet Count 241 130-400 K/uL Mean Platelet Volume 9.9 7.4-10.4 fL Neutrophils (%) (Auto) 68.7 % Lymphocytes (%) (Auto) 24.3 % Monocytes (%) (Auto) 5.8 % Eosinophils (%) (Auto) 0.5 % Basophils (%) (Auto) 0.4 % Neutrophils # (Auto) 7.52 1.4-6.5 K/uL Lymphocytes # (Auto) 2.65 1.2-3.4 K/uL Monocytes # (Auto) 0.63 0.11-0.59 K/uL Eosinophils # (Auto) 0.05 0-0.5 K/uL Basophils # (Auto) 0.04 0-0.2 K/uL RDW Standard Deviation 50.7 36.4-46.3 fL RDW Coefficient of Variation 15.0 11.5-14.5 % Immature Granulocyte % (Auto) 0.3 % Immature Granulocyte # (Auto) 0.03 0.00-0.02 K/uL Sodium Level 133 134 136-145 mmol/L Potassium Level 5.3 3.5-5.1 mmol/L Chloride Level 100 101 98-107 mmol/L Carbon Dioxide Level 24 25 21-32 mmol/L Anion Gap 9.0 14.0 7.0 3-11 mmol/L Blood Urea Nitrogen 33 33 7-18 mg/dl Creatinine 1.51 1.46 0.60-1.20 mg/dl Estimated GFR () 38.5 40.1 Estimated GFR (Non- 33.2 34.6 BUN/Creatinine Ratio 21.8 22.8 10-20 Random Glucose 95 67 70-99 mg/dl Calcium Level 9.1 9.3 8.5-10.1 mg/dl Magnesium Level 1.5 1.8-2.4 mg/dl Total Bilirubin 0.7 0.6 0.2-1 mg/dl Direct Bilirubin 0.2 0-0.2 mg/dl Aspartate Amino Transf (AST/SGOT) 51 15-37 U/L Alanine Aminotransferase (ALT/SGPT) 47 41 12-78 U/L Alkaline Phosphatase 99 91 45-117 U/L Ammonia 170.0 11-32 umol/L Total Protein 9.0 8.3 6.4-8.2 gm/dl Albumin 3.6 3.4 3.4-5.0 gm/dl Thyroid Stimulating Hormone (TSH) 0.450 0.300-4.500 uIu/ml Free Thyroxine 1.94 0.80-1.60 ng/dl Bedside Troponin I 0.060 0-0.045 ng/ml Bedside Hemoglobin 16.0 12.0-16.0 g/dl Bedside Hematocrit 47 37-47 % Bedside Sodium 133 135-144 mEq/L Bedside Potassium 6.9 3.3-5.0 mEq/L Bedside Chloride 98 101-112 mEq/L Bedside Total CO2 28 24-31 mEq/l Bedside Blood Urea Nitrogen 49 7-18 mg/dl Bedside Creatinine 1.4 0.6-1.3 mg/dl Bedside Glucose (other) 97 70-99 mg/dl Bedside Ionized Calcium (Mauri) 1.10 1.12-1.32 mmol/l Prothrombin Time 97.6 9.0-12.0 SECONDS Prothromb Time International Ratio > 8.0 0.9-1.1 Activated Partial Thromboplast Time 50.4 21.0-31.0 SECONDS Partial Thromboplastin Ratio 1.9 Troponin I 0.098 0-0.045 ng/ml Test 01/04/17 18:48 Range/Units Bedside Glucose 49 70-90 mg/dl Diagnostic Radiology CXR: IMPRESSION: Stable mild cardiomegaly. Otherwise, no acute process within the chest CT HEAD WITHOUT CONTRAST: IMPRESSION: 1. No acute intracranial abnormality. 2. Atrophy with chronic microvascular ischemic changes. EKG EKG: poor tracing. atrial fibrillation rate 85, no peaked T waves noted. no significant ST elevation noted Impression Assessment and Plan Pt is 76 y/o F presents with hx confusion x 1 week and elevated K today. Hx renal cell CA with resection, hx cirrhosis possible autoimmune hepatitis CONFUSION -Encephalopathy, probable hepatic. Possible infectious vs adverse drug reaction vs electrolyte abnormality, vs hypoglycemia -CXR no acute process. -CT head negative, Of note MRI brain yesterday no casandra -UA ordered to r/o UTI -Increased hypoglycemia after insulin given for hyperkalemia, feed pt, pt given glucose gel and glucose 74. Continue to monitor BSG -repeat CBC, CMP tomorrow am -elevated ammonia. Lactulose TID until 3 soft stools daily. Will repeat ammonia tomorrow. -Possible Axitinib med reaction. Will hold med for now. Consult oncology. Spoke to Dr Romano & Dr Cadena is aware will see tomorrow am. -Q15 nurse checks -Pt with agitation - Ativan 0.5mg po BID ordered prn agitation/anxiety HYPERKALEMIA -K was 6 out pt, initial ER lab was hemolyzed, repeat was 5.3. Pt received calcium gluconate, insulin R 10 units, albuterol neb, dextrose given in ER -Will continue to monitor ELEVATED INR -Vitamin K 5mg po given. -Hold coumadin -repeat INR in am -no apparent bleeding DM TYPE II -currently hypoglycemic -hold oral meds -insulin sliding scale per protocol -HgbA1c added MILDLY ELEVATED TROPONIN -repeat cardiac enzymes x 2 -repeat EKG in am HYPOTHYROIDISM -continue levothyroxine HYPERLIPIDEMIA -continue lipitor -lipid panel in morning A-FIB -rate controlled -hold Coumadin as increased INR -continue atenolol HYPOMAGNESIUM -magnesium 1.5 -will treat with magnesium 2GM IV HTN -continue lisinopril -continue atenolol DVT PROPHYLAXIS -Pt on Coumadin DISPOSITION -admit tele -Full code, pt unable to discuss, son did not have any recommendations on pt's wishes so she was made full code -Follows with Dr Ward for routine care Pt was seen with Dr Lynn ADDENDUM: I have seen and examined the patient and agree with the assessment and plan above. Delirium and agitation likely related to HE 2/2 decompensated cirrhosis vs new immunotherapy started 2 weeks ago vs hypoglycemia vs other (or a combination of the above). Delirium and agitation on exam with clear lungs, normal abdominal exam wo distension, pain or fluid wave and no edema. She is functional at baseline two weeks ago-ambulates without issue, cooks her son food daily and manages her own medications, etc. She is unable to do any of this at this time. It will likely take a couple of days to rid her body of the excess ammonia and see improvement. Will hold lisinopril until K comes down a little further. Monitor HTN. INR>8 and no bleeding. Vit K PO given, repeat INR in am. Hold coumadin. Shane, DO Level of Care Telemetry Resuscitation Status FULL RESUSCITATION VTE Prophylaxis VTE Risk Assessment Done? Y/N: Yes Risk Level: Moderate Given or contraindicated: Warfarin (Coumadin) Additional Copies To Alessia Ward D.O.
[2017-01-04] MEDS: INSULIN ASPART 100 UNITS/ML 3 ML PEN SC SCH (21:19)
[2017-01-04] MEDS: MAGNESIUM SULFATE 1GM / D5W 1 GM in PREMIXED IN D5W 100 ML IV SCH ×2 (21:42→23:45)
[2017-01-04 22:11] LABS: URINE APPEARANCE CLEAR (CLEAR); URINE BILIRUBIN NEG (NEG); URINE COLOR YELLOW; URINE NITRITE NEG (NEG); URINE SPECIFIC GRAVITY 1.022 (1.000-1.030); UROBILINOGEN NEG (NEG); ZZURINE CULT IF INDIC CATH YES
[2017-01-04 22:13] LABS: MANUAL MICROSCOPIC REQUIRED? NO; REVIEW REQ? NO
[2017-01-04 22:35] LABS: CKMB/CK RATIO 3.3 (0-3.0)
[2017-01-05 05:56] LABS: HEMATOCRIT 41.2 % (37-47); MEAN CORPUSCULAR HEMOGLOBIN 30.8 pg (25-34); MEAN CORPUSCULAR HGB CONC 33.5 g/dl (32-36); MEAN PLATELET VOLUME 9.5 fL (7.4-10.4); PLATELET COUNT 243 K/uL (130-400); RED BLOOD COUNT 4.48 M/uL (4.2-5.4); WHITE BLOOD COUNT 12.28 K/uL (4.8-10.8)
[2017-01-05] MEDS: LACTULOSE SYRUP 30 GM/45 ML UDP PO SCH ×4 (06:08→21:58)
[2017-01-05 06:14] LABS: BUN/CREATININE RATIO 23.5 (10-20); CALCIUM 9.2 mg/dl (8.5-10.1); CREATININE 1.35 mg/dl (0.60-1.20); MAGNESIUM 2.5 mg/dl (1.8-2.4); POTASSIUM 4.7 mmol/L (3.5-5.1)
[2017-01-05 06:18] LABS: PROTHROMBIN TIME (PATIENT) 77.5 SECONDS (9.0-12.0)
[2017-01-05 06:24] LABS: INR 6.7 (0.9-1.1)
[2017-01-05 06:25] LABS: ALB/GLOB RATIO 0.7 (0.9-2); CKMB/CK RATIO 3.3 (0-3.0)
[2017-01-05 07:32] VITALS: BP 119/70; PULSE 79; TEMP 36.8; O2SAT 97
[2017-01-05] MEDS: INSULIN ASPART 100 UNITS/ML 3 ML PEN SC SCH ×4 (08:30→21:01)
[2017-01-05 08:36] LABS: ESTIMATED AVERAGE GLUCOSE 146 mg/dl; HA1C FLAG Normal (Normal)
[2017-01-05] MEDS ORDERED: LISINOPRIL 20 MG TAB PO SCH (09:00)
[2017-01-05] MEDS ORDERED: LEVOTHYROXINE 100 MCG TAB PO SCH (09:00)
--- NOTE | 2017-01-05 09:33 | Medical Consult ---
Consultation Date of Consultation: Jan 05, 2017. Attending Physician: America Vail M.D. History of Present Illness Hematology/Oncology consult: Evaluation management of recurrent kidney cancer. 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 She remained under observation since then. Imaging studies done in October, showed recurrent disease involving the previous nephrectomy bed, peritoneal nodules. Current therapy: -Started on Axitinib at 3 mg twice a day on 12/20/2016. Blood workup done on 01/03/2017 as an outpatient -WBC 9200, H&H of 14/41, Platelet count of 191,000. -BUN/Creat: 31/1.3, calcium 9.7 -AST 46, ALT 17, I plan phosphatase 87, Total bilirubin: 0.7. -potassium 6.0 She had some memory disturbances noted earlier about 1 week back. MR level done at that time was reported to be negative (it was around 31 on 01/18/2017) Now she is admitted at [facility] for hyperkalemia. She received calcium gluconate, insulin and lb current able eyes are for hyperkalemia, ammonia level was around 170, creatinine around 1.5 mg/dL, repeat potassium was 5.3. I saw her bedside, now started her on lactulose therapy, decided to hold Axitinib at this time. She has some memory disturbances, denies any headache, no nausea, no vomiting, no bleeding from any sites, no leg edema. Denies any abdominal discomfort, no abdominal distention. No fever. No active urinary symptoms. No history of recent fall. Blood workup also showed elevated PT around 97 seconds with INR > 8, PTT 50.4, Coumadin is on hold, received oral vitamin K therapy. REVIEW OF SYSTEMS: GENERAL: Some weight loss present, feeling weak and tired, no fever or chills. SKIN: No skin rash, no bruising. HEAD: No new headache, no dizziness. EYES: No recent change in the vision, no diplopia, EARS: No earache no tinnitus, NOSE: No epistaxis, No nasal discharge or stuffiness, MOUTH: No sores, no dysphagia, no hoarseness of voice, NECK: No lumps, No swelling in thyroid area. No stiffness. PULMONARY: No cough, No shortness of breath, no hemoptysis, no chest pain, No wheezing. CARDIOVASCULAR: No anginal chest pain, no PND, no orthopnea. No palpitation, no leg edema. No syncope. GASTROINTESTINAL: No abdominal pain, no nausea or vomiting.Diarrhea started after starting lactulose therapy, No constipation. No blood in stool or black tarry stools. No abdominal distention. UROLOGIC: No burning urination. No hematuria. MUSCULOSKELETAL: No joint pain, No joint swelling, no muscle weakness. HEMATOLOGIC:no bleeding disorder, No bruising. NEUROLOGIC: No seizures, no focal weakness, no speech difficulty, memory disturbances present, No tingling or numbness of the extremities. PSYCHIATRIC: No depression. No anxiety. No psychosis. SLEEP: No sleep disorder. Past medical and surgical history: -Autoimmune hepatitis. Cirrhosis of liver noted in the recent imaging study. -atrial fibrillation, on oral Coumadin treatment -coronary disease, renal insufficiency, diabetes mellitus, hyperlipidemia, hypertension, hypothyroidism, kidney cancer as described above. -S/P cholecystectomy, S/P CABG surgery, S/P appendectomy, partial hysterectomy in the past Social history: Nonsmoker, denies any ETOH abuse. Family history: Not significant Medications at home: She was on Coumadin, metformin, lisinopril, Synthroid, glipizide, atorvastatin, atenolol and Axitinib at home. Allergies: Bactrim On exam: - Alert and oriented x3, thin built woman, not in any distress. - HEENT: no icterus, no pallor, Throat: Normal. - Neck: No palpable cervical lymphadenopathy. - Chest: clear to auscultation. - Abdomen: soft, nontender, no hepatomegaly, no splenomegaly. - No focal neuro deficit. - Extremities: no finger clubbing, no leg edema. Recent imaging studies done in her case: ~ -CT scan of the abdomen and pelvis done on 10/20/2016 shows findings suggestive of cirrhosis of liver, normal spleen size noted, right renal foci there at least 3 soft tissue masses measuring 2.6 x 2.4, 1.5 cm and 1.9 cm which has raised the possibility of local recurrent disease, 1.7 cm enhancing peritoneal nodule along the right lower quadrant abdominal wall below the right lobe of the liver, 2.8 x 1.3 cm implant along the medial right lobe of the liver, 1.5 cm implant in the pelvis adjacent to the sigmoid colon ,mild enlarged portacaval lymph node measuring up to 1.3 cm noted, no bony lesions noted. ~ -CT scan of the chest done with IV contrast on 10/25/2016 at [facility] showed no enlarged lymph nodes noted in the mediastinum hilum or axillary region, 5 mm nodule in the left lower lobe, right cardiophrenic angle lymph node which is slightly increased in the size measuring about 8 mm. ~ Blood workup done on 10/27/2016: -WBC 8600, H&H of 13/39, Platelet count of 178,000. -BUN/Creat: ~20/1.1, calcium 9.7, total protein 9.0, AST 115, ALT 90, alkaline phosphatase 109, Total bilirubin: ~0.4. - Hepatitis A, B, C serology--> negative. ~ Blood workup done on 11/16/2016: -ARYA positive, alpha-fetoprotein level--> 1.7 -Antimitochondrial antibody--> 165 -Anti smooth muscle antibody--> 90.6 Blood workup done during this hospitalization: -WBC 28273, H&H of 14.7/41.8, Platelet count of 241,000, BUN/Creat: 33/1.5, total protein 9, albumin 3.6 -total bilirubin 0.6, magnesium 1.5, AST 51, ALT 41, alkaline phosphatase 91. -ammonia level around 170 (01/04/2007)--> 161 (1087). of intracranial bleed. -MRI of the brain done on 01/04/2017--> no evidence of metastatic disease involving the brain. 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, has recurrent disease involving the previous right nephrectomy bed, peritoneal nodules, also has autoimmune hepatitis, she had abnormal liver functions earlier but it has improved, now started her on tyrosine kinase inhibitor for kidney cancer in the form of Axitinib at 3 mg twice a day on 12/20/2016, some memory disturbances noted in the last few weeks, ammonia level was done about 1 week back which was in normal, now she is admitted for hyperkalemia, surprisingly normal liver function test but ambulates significantly on the higher side around 170, started on lactulose therapy, now potassium level is in normal range, decided to hold Axitinib at this time. Also noticed to have elevated PT and PTT, she is on oral Coumadin for underlying atrial fibrillation, received oral vitamin K, no bleeding from any sites, Coumadin is on hold. Will continue to hold Axitinib at this time, will restart once she is better. Will have to ask cardiology regarding anticoagulant treatment in her case. Thanks for the consultation. Dr. Pranav Cadena Hem/Onc (This note was completed using the dictation program Fluency Direct. As such, there may be misspellings, word substitutions, or other variations that should not change the essence of the clinical content of this encounter note. If there is need for further clarification, please direct questions to the provider listed above.) Past Medical/Surgical History Medical Problems: (1) Hepatic encephalopathy Status: Acute Family History FH gastric disorder - mother had gastric surgery MOTHER FH: COPD (chronic obstructive pulmonary disease) FATHER FH: heart disease FATHER Social History Smoking Status: Never Smoker Smokeless Tobacco Use: No Alcohol Use: none Drug Use: none Marital Status: Occupation Status: retired Allergies Coded Allergies: Sulfamethoxazole w/Trimethoprim (Verified Adverse Reaction, Mild, N/V, ) Current Inpatient Medications Current Inpatient Medications Medications (Trade) Dose Ordered Sig/Hubert Route Start Time Stop Time Status Last Admin Dose Admin Acetaminophen (Tylenol Tab) 650 mg Q4H PRN PO 01/04/17 18:45 02/03/17 18:44 01/04/17 20:57 650 MG Ondansetron HCl (Zofran Inj) 4 mg Q6H PRN IV 01/04/17 18:45 02/03/17 18:44 Glucose (Glucose 40% Gel) 15-30 GRAMS 15 GRAMS... UD PRN PO 01/04/17 19:00 02/03/17 18:59 Glucose (Glucose Chew Tab) 4-8 Tablets 4 Tabl... UD PRN PO 01/04/17 19:00 02/03/17 18:59 Dextrose (Dextrose 50% 50ML Syringe) 25-50ML OF 50% DW IV FOR... UD PRN IV 01/04/17 19:00 02/03/17 18:59 Glucagon (Glucagon Inj) 1 mg UD PRN SQ 01/04/17 19:00 02/03/17 18:59 Insulin Aspart (novoLOG ASPART) SLIDING SCALE If C... ACHS SC 01/04/17 21:00 02/03/17 20:59 01/04/17 21:19 1 UNITS Lactulose (Chronulac Syrup) 30 gm TID PO 01/05/17 07:00 02/04/17 06:59 01/05/17 08:33 30 GM Atenolol (Tenormin Tab) 50 mg QAM PO 01/05/17 09:00 02/04/17 08:59 01/05/17 08:32 50 MG Atorvastatin Calcium (Lipitor Tab) 40 mg HS PO 01/04/17 21:00 02/03/17 20:59 01/04/17 20:56 40 MG Lisinopril (Zestril Tab) 20 mg QAM PO 01/05/17 09:00 02/04/17 08:59 Future Hold Miscellaneous (Iv Fluids Completed) 1 ea PRN PRN N/A 01/04/17 20:00 01/04/18 19:59 Lorazepam (Ativan Tab) 0.5 mg BID PRN PO 01/04/17 20:30 02/03/17 20:29 01/04/17 20:56 0.5 MG Levothyroxine Sodium (Synthroid Tab) 100 mcg DAILYBB PO 01/06/17 06:30 02/05/17 06:29 Physical Exam Date Time Temp Pulse Resp B/P (MAP) Pulse Ox O2 Delivery O2 Flow Rate FiO2 01/05/17 08:00 Room Air 01/05/17 07:32 36.8 79 16 119/70 (86) 97 Room Air 01/05/17 04:00 Room Air 01/05/17 00:01 Room Air 01/04/17 19:50 37.1 110 18 133/67 96 Room Air 01/04/17 19:16 110 133/67 (89) 01/04/17 18:24 37.1 100 18 171/82 (111) 96 Room Air 01/04/17 17:32 101 01/04/17 17:13 94 20 150/100 95 Room Air 01/04/17 15:27 19 141/104 95 Room Air 01/04/17 14:11 36.8 88 16 108/76 95 Room Air Laboratory Results Last 24 Hours Test 01/04/17 16:10 01/04/17 16:13 01/04/17 16:18 01/04/17 16:51 White Blood Count 10.92 K/uL Red Blood Count 4.52 M/uL Hemoglobin 14.7 g/dL Hematocrit 41.8 % Mean Corpuscular Volume 92.5 fL Mean Corpuscular Hemoglobin 32.5 pg Mean Corpuscular Hemoglobin Concent 35.2 g/dl Platelet Count 241 K/uL Mean Platelet Volume 9.9 fL Neutrophils (%) (Auto) 68.7 % Lymphocytes (%) (Auto) 24.3 % Monocytes (%) (Auto) 5.8 % Eosinophils (%) (Auto) 0.5 % Basophils (%) (Auto) 0.4 % Neutrophils # (Auto) 7.52 K/uL Lymphocytes # (Auto) 2.65 K/uL Monocytes # (Auto) 0.63 K/uL Eosinophils # (Auto) 0.05 K/uL Basophils # (Auto) 0.04 K/uL RDW Standard Deviation 50.7 fL RDW Coefficient of Variation 15.0 % Immature Granulocyte % (Auto) 0.3 % Immature Granulocyte # (Auto) 0.03 K/uL Sodium Level 133 mmol/L 134 mmol/L Potassium Level mmol/L 5.3 mmol/L Chloride Level 100 mmol/L 101 mmol/L Carbon Dioxide Level 24 mmol/L 25 mmol/L Anion Gap 9.0 mmol/L 14.0 mmol/L 7.0 mmol/L Blood Urea Nitrogen 33 mg/dl 33 mg/dl Creatinine 1.51 mg/dl 1.46 mg/dl Estimated GFR () 38.5 40.1 Estimated GFR (Non- 33.2 34.6 BUN/Creatinine Ratio 21.8 22.8 Random Glucose 95 mg/dl 67 mg/dl Calcium Level 9.1 mg/dl 9.3 mg/dl Magnesium Level mg/dl 1.5 mg/dl Total Bilirubin 0.7 mg/dl 0.6 mg/dl Direct Bilirubin mg/dl 0.2 mg/dl Aspartate Amino Transf (AST/SGOT) U/L 51 U/L Alanine Aminotransferase (ALT/SGPT) 47 U/L 41 U/L Alkaline Phosphatase 99 U/L 91 U/L Ammonia 170.0 umol/L Total Protein 9.0 gm/dl 8.3 gm/dl Albumin 3.6 gm/dl 3.4 gm/dl Thyroid Stimulating Hormone (TSH) 0.450 uIu/ml Free Thyroxine 1.94 ng/dl Bedside Troponin I 0.060 ng/ml Bedside Hemoglobin 16.0 g/dl Bedside Hematocrit 47 % Bedside Sodium 133 mEq/L Bedside Potassium 6.9 mEq/L Bedside Chloride 98 mEq/L Bedside Total CO2 28 mEq/l Bedside Blood Urea Nitrogen 49 mg/dl Bedside Creatinine 1.4 mg/dl Bedside Glucose (other) 97 mg/dl Bedside Ionized Calcium (Mauri) 1.10 mmol/l Prothrombin Time 97.6 SECONDS Prothromb Time International Ratio > 8.0 Activated Partial Thromboplast Time 50.4 SECONDS Partial Thromboplastin Ratio 1.9 Troponin I 0.098 ng/ml Test 01/04/17 18:48 01/04/17 19:23 01/04/17 21:17 01/04/17 21:40 Bedside Glucose 49 mg/dl 74 mg/dl 213 mg/dl Urine Color YELLOW Urine Appearance CLEAR Urine pH 5.0 Urine Specific Nora 1.022 Urine Protein NEG Urine Glucose (UA) TRACE Urine Ketones NEG Urine Occult Blood TRACE Urine Nitrite NEG Urine Bilirubin NEG Urine Urobilinogen NEG Urine Leukocyte Esterase MODERATE Urine WBC (Auto) >30 /hpf Urine RBC (Auto) 0-4 /hpf Urine Hyaline Casts (Auto) 1-5 /lpf Urine Epithelial Cells (Auto) 5-10 /lpf Urine Bacteria (Auto) 4+ Test 01/04/17 21:53 01/05/17 05:32 01/05/17 07:23 Total Creatine Kinase 126 U/L 127 U/L Creatine Kinase MB 4.1 ng/ml 4.2 ng/ml Creatine Kinase MB Ratio 3.3 3.3 Troponin I 0.105 ng/ml 0.091 ng/ml White Blood Count 12.28 K/uL Red Blood Count 4.48 M/uL Hemoglobin 13.8 g/dL Hematocrit 41.2 % Mean Corpuscular Volume 92.0 fL Mean Corpuscular Hemoglobin 30.8 pg Mean Corpuscular Hemoglobin Concent 33.5 g/dl RDW Standard Deviation 50.0 fL RDW Coefficient of Variation 15.0 % Platelet Count 243 K/uL Mean Platelet Volume 9.5 fL Prothrombin Time 77.5 SECONDS Prothromb Time International Ratio 6.7 Sodium Level 135 mmol/L Potassium Level 4.7 mmol/L Chloride Level 102 mmol/L Carbon Dioxide Level 25 mmol/L Anion Gap 8.0 mmol/L Blood Urea Nitrogen 32 mg/dl Creatinine 1.35 mg/dl Est Creatinine Clear Calc Drug Dose 28.0 ml/min Estimated GFR () 44.1 Estimated GFR (Non- 38.0 BUN/Creatinine Ratio 23.5 Random Glucose 68 mg/dl Estimated Average Glucose 146 mg/dl Hemoglobin A1c 6.7 % Calcium Level 9.2 mg/dl Magnesium Level 2.5 mg/dl Total Bilirubin 0.7 mg/dl Aspartate Amino Transf (AST/SGOT) 47 U/L Alanine Aminotransferase (ALT/SGPT) 40 U/L Alkaline Phosphatase 93 U/L Ammonia 161.0 umol/L Total Protein 8.1 gm/dl Albumin 3.3 gm/dl Globulin 4.8 gm/dl Albumin/Globulin Ratio 0.7 Bedside Glucose 91 mg/dl
[2017-01-05 11:21] VITALS: BP 138/68; PULSE 78; TEMP 36.7; O2SAT 97
[2017-01-05 12:32] VITALS: Ht 157.5 cm; Wt 54.1 kg
[2017-01-05] MEDS: CIPROFLOXACIN 250 MG TAB PO SCH ×2 (13:00→21:00)
[2017-01-05 14:56] VITALS: BP 112/69; PULSE 83; TEMP 36.2; O2SAT 97
--- NOTE | 2017-01-05 15:04 | Gastrointestinal Consultation ---
Gastrointestinal Consultation Date of Consultation: Jan 05, 2017 Attending Physician: Dr. Vail Consulting Physician: Dr. Romero Reason for Consultation: Hepatic Encephalopathy History of Present Illness Patient is a 76 year old female with a hx of autoimmune liver disease/possible cirrhosis as well as renal cancer, A-fib on Coumadin, CAD, HTN, DM-2, hypothyroidism. She is being treated for the renal cell carcinoma currently on Axitinib (doses held by family x 4 days due to confusion). Labs labs showed a K of 6 and she was directed to the ED. Her son brought her yesterday and provided a hx. He reported that she has been confused for about a week and that she became combatant a few days prior to admission. Prior to the past week, she has never had confusion. Her son lives in the same house with her but she has been independent until this past week. GI is consulted for "hepatic encephalopathy. " Regarding the hx of autoimmune hepatitis. This was dx'ed in the past few months. She is followed in GI clinic by Ina Hahn and although liver bx was not completed, on the bases of ARYA >10,000, she and Dr. Arango dx'ed autoimmune hepatitis. She was initially treated with ursodiol but it was NJ'ed due to diarrhea. On arrival, WBC 11, today 12. INR yesterday >8, today 6. Cr yesterday was 1.5, today 1.35. Bilirubin has been normal. AST has been minimally elevated at 50; ALT, Alk Phos and Bili have been normal. Urine culture is growing gram (-) bacilli. On exam, she is awake and alert, but answers to some questions show confusion. No asterixis are present and the pt is not jaundice and not lethargic. Past Medical/Surgical History Past Medical History: 1. A-Fib on coumadin 2. CAD 3. CKD 4. DM-2 5. Hyperlipidemia 6. HTN 7. Hypothyroidism 8. Renal Cancer Past Surgical History: 1. Rt kidney resection 03/2006 2. Partial hysterectomy 3. Appendectomy 4. Cholecystectomy 5. CABG 6. Colonoscopy : 07/23/2014 Dr. Prasad: adenomatous & hyperplastic polyps, diverticulosis, repeat 3 yrs Family History FH gastric disorder - mother had gastric surgery MOTHER FH: COPD (chronic obstructive pulmonary disease) FATHER FH: heart disease FATHER Social History Smoking Status: Never Smoker Drug Use: none Marital Status: Occupation Status: retired Allergies Coded Allergies: Sulfamethoxazole w/Trimethoprim (Verified Adverse Reaction, Mild, N/V, ) Current Medications Home Meds and Scripts Medications Dose Route/Sig Max Daily Dose Days Date Category Inlyta (Axitinib) 1 Mg Tab 3 Tabs PO BID 01/04/17 Reported Jantoven (Warfarin Sodium) 5 Mg Tab 5 Mg PO DAILY 01/04/17 Reported Atenolol 50 Mg Tab 50 Mg PO QAM 03/17/16 Reported Synthroid (Levothyroxine Sodium) 100 Mcg Tab 100 Mcg PO QAM 01/19/16 Reported Lipitor (Atorvastatin) 40 Mg Tab 40 Mg PO HS 01/19/16 Reported Lisinopril 20 Mg Tab 20 Mg PO QAM 12/12/15 Reported Glucotrol (Glipizide) 10 Mg Tab 10 Mg PO BID 07/27/12 Reported Glucophage (Metformin Hcl) 500 Mg Tab 500 Mg PO BID 07/27/12 Reported Review of Systems Constitutional: + problem reported (confusion), No fever, No chills, No sweats , No weight loss, No weakness Eyes: + problem reported, No eye pain, No redness ENT: No sore throat, No trouble swallowing, No pain on swallowing Respiratory: No cough, No wheezing, No shortness of breath, No dyspnea on exertion Cardiac: No chest pain, No edema, No palpitations Abdomen: + see HPI Neuro: + problem reported (confusion), No memory loss, No weakness, No numbness /tingling, No vertigo, No balance problems Psych: No depression symptoms, No anxiety, No insomnia Heme: No abnormal bleeding/bruising, No night sweats Endo: No excessive thirst, No excessive urination Skin: No rash, No itch, No new/changing skin lesions, No jaundice Physical Exam Date Time Temp Pulse Resp B/P (MAP) Pulse Ox O2 Delivery O2 Flow Rate FiO2 01/05/17 12:00 Room Air 01/05/17 11:21 36.7 78 20 138/68 (91) 97 01/05/17 08:00 Room Air 01/05/17 07:32 36.8 79 16 119/70 (86) 97 Room Air 01/05/17 04:00 Room Air 01/05/17 00:01 Room Air 01/04/17 19:50 37.1 110 18 133/67 96 Room Air 01/04/17 19:16 110 133/67 (89) 01/04/17 18:24 37.1 100 18 171/82 (111) 96 Room Air 01/04/17 17:32 101 01/04/17 17:13 94 20 150/100 95 Room Air 01/04/17 15:27 19 141/104 95 Room Air General Appearance: no apparent distress Eyes: normal inspection, EOMI Neck: supple, no adenopathy, thyroid normal Respiratory/Chest: chest non-tender, lungs clear, normal breath sounds, no accessory muscle use Cardiovascular: regular rate, rhythm, no JVD, no murmur Abdomen: normal bowel sounds, non tender, soft, no organomegaly, + pertinent finding (no ascites) Extremities: normal inspection, no pedal edema, normal capillary refill Neurologic/Psych: alert, normal mood/affect, oriented x 3, + pertinent finding (no asterexis) Skin: normal color, no jaundice, warm/dry, no rash Laboratory Results Last 24 Hours Test 01/04/17 16:10 01/04/17 16:13 01/04/17 16:18 01/04/17 16:51 White Blood Count 10.92 K/uL Red Blood Count 4.52 M/uL Hemoglobin 14.7 g/dL Hematocrit 41.8 % Mean Corpuscular Volume 92.5 fL Mean Corpuscular Hemoglobin 32.5 pg Mean Corpuscular Hemoglobin Concent 35.2 g/dl Platelet Count 241 K/uL Mean Platelet Volume 9.9 fL Neutrophils (%) (Auto) 68.7 % Lymphocytes (%) (Auto) 24.3 % Monocytes (%) (Auto) 5.8 % Eosinophils (%) (Auto) 0.5 % Basophils (%) (Auto) 0.4 % Neutrophils # (Auto) 7.52 K/uL Lymphocytes # (Auto) 2.65 K/uL Monocytes # (Auto) 0.63 K/uL Eosinophils # (Auto) 0.05 K/uL Basophils # (Auto) 0.04 K/uL RDW Standard Deviation 50.7 fL RDW Coefficient of Variation 15.0 % Immature Granulocyte % (Auto) 0.3 % Immature Granulocyte # (Auto) 0.03 K/uL Sodium Level 133 mmol/L 134 mmol/L Potassium Level mmol/L 5.3 mmol/L Chloride Level 100 mmol/L 101 mmol/L Carbon Dioxide Level 24 mmol/L 25 mmol/L Anion Gap 9.0 mmol/L 14.0 mmol/L 7.0 mmol/L Blood Urea Nitrogen 33 mg/dl 33 mg/dl Creatinine 1.51 mg/dl 1.46 mg/dl Estimated GFR () 38.5 40.1 Estimated GFR (Non- 33.2 34.6 BUN/Creatinine Ratio 21.8 22.8 Random Glucose 95 mg/dl 67 mg/dl Calcium Level 9.1 mg/dl 9.3 mg/dl Magnesium Level mg/dl 1.5 mg/dl Total Bilirubin 0.7 mg/dl 0.6 mg/dl Direct Bilirubin mg/dl 0.2 mg/dl Aspartate Amino Transf (AST/SGOT) U/L 51 U/L Alanine Aminotransferase (ALT/SGPT) 47 U/L 41 U/L Alkaline Phosphatase 99 U/L 91 U/L Ammonia 170.0 umol/L Total Protein 9.0 gm/dl 8.3 gm/dl Albumin 3.6 gm/dl 3.4 gm/dl Thyroid Stimulating Hormone (TSH) 0.450 uIu/ml Free Thyroxine 1.94 ng/dl Bedside Troponin I 0.060 ng/ml Bedside Hemoglobin 16.0 g/dl Bedside Hematocrit 47 % Bedside Sodium 133 mEq/L Bedside Potassium 6.9 mEq/L Bedside Chloride 98 mEq/L Bedside Total CO2 28 mEq/l Bedside Blood Urea Nitrogen 49 mg/dl Bedside Creatinine 1.4 mg/dl Bedside Glucose (other) 97 mg/dl Bedside Ionized Calcium (Mauri) 1.10 mmol/l Prothrombin Time 97.6 SECONDS Prothromb Time International Ratio > 8.0 Activated Partial Thromboplast Time 50.4 SECONDS Partial Thromboplastin Ratio 1.9 Troponin I 0.098 ng/ml Test 01/04/17 18:48 01/04/17 19:23 01/04/17 21:17 01/04/17 21:40 Bedside Glucose 49 mg/dl 74 mg/dl 213 mg/dl Urine Color YELLOW Urine Appearance CLEAR Urine pH 5.0 Urine Specific Sandwich 1.022 Urine Protein NEG Urine Glucose (UA) TRACE Urine Ketones NEG Urine Occult Blood TRACE Urine Nitrite NEG Urine Bilirubin NEG Urine Urobilinogen NEG Urine Leukocyte Esterase MODERATE Urine WBC (Auto) >30 /hpf Urine RBC (Auto) 0-4 /hpf Urine Hyaline Casts (Auto) 1-5 /lpf Urine Epithelial Cells (Auto) 5-10 /lpf Urine Bacteria (Auto) 4+ Test 01/04/17 21:53 01/05/17 05:32 01/05/17 07:23 01/05/17 11:28 Total Creatine Kinase 126 U/L 127 U/L Creatine Kinase MB 4.1 ng/ml 4.2 ng/ml Creatine Kinase MB Ratio 3.3 3.3 Troponin I 0.105 ng/ml 0.091 ng/ml White Blood Count 12.28 K/uL Red Blood Count 4.48 M/uL Hemoglobin 13.8 g/dL Hematocrit 41.2 % Mean Corpuscular Volume 92.0 fL Mean Corpuscular Hemoglobin 30.8 pg Mean Corpuscular Hemoglobin Concent 33.5 g/dl RDW Standard Deviation 50.0 fL RDW Coefficient of Variation 15.0 % Platelet Count 243 K/uL Mean Platelet Volume 9.5 fL Prothrombin Time 77.5 SECONDS Prothromb Time International Ratio 6.7 Sodium Level 135 mmol/L Potassium Level 4.7 mmol/L Chloride Level 102 mmol/L Carbon Dioxide Level 25 mmol/L Anion Gap 8.0 mmol/L Blood Urea Nitrogen 32 mg/dl Creatinine 1.35 mg/dl Est Creatinine Clear Calc Drug Dose 28.0 ml/min Estimated GFR () 44.1 Estimated GFR (Non- 38.0 BUN/Creatinine Ratio 23.5 Random Glucose 68 mg/dl Estimated Average Glucose 146 mg/dl Hemoglobin A1c 6.7 % Calcium Level 9.2 mg/dl Magnesium Level 2.5 mg/dl Total Bilirubin 0.7 mg/dl Aspartate Amino Transf (AST/SGOT) 47 U/L Alanine Aminotransferase (ALT/SGPT) 40 U/L Alkaline Phosphatase 93 U/L Ammonia 161.0 umol/L Total Protein 8.1 gm/dl Albumin 3.3 gm/dl Globulin 4.8 gm/dl Albumin/Globulin Ratio 0.7 Bedside Glucose 91 mg/dl 189 mg/dl Impression Patient is a 76 year old female with acute confusion, electrolyte derangement in the setting of chemotherapy and autoimmune hepatitis. Though imaging has been suggestive of early cirrhosis, her normal platelet level argues against this. Her confusion seems more suggestive of delirium than hepatic encephalopathy because she is confused but not lethargic. Likely the chemotherapy also caused some degree of decompensation of her liver disease. Plan 1. Would continue to defer tx of autoimmune hepatitis due to active cancer (tx is an immune suppressant). 2. OK to treat high ammonia level with lactulose. 3. 2 gram sodium diet. 4. Infectious work up should include blood cultures, CXR in addition to Urine culture. 5. Will continue to follow. I have seen , examined and agree with the plan as outlined by BABITA Patel as above. -Does not appear to have HE based upon exam with lack of stupors, more likely concerned with UTI causing condition, -Ok for lactulose for now -Will follow -Would order Blood cx, and CXR
[2017-01-05 16:00] VITALS: O2SAT 97
[2017-01-05] MEDS: LORAZEPAM 0.5 MG TAB PO PRN (17:34)
[2017-01-05] MEDS: BOOST GLUCOSE CONTROL PO SCH (17:35)
[2017-01-05] MEDS: ACETAMINOPHEN 325 MG TAB PO PRN (17:35)
--- NOTE | 2017-01-05 17:40 | Progress Note ---
Internal Med Progress Note Date of Service: Jan 05, 2017. Provider Documentation: SUBJECTIVE: remains confused , trying to climb out of bed pleasant , not aware of her surrounding OBJECTIVE: Vital Signs-as noted below Exam: General-elderly female, no sign of distress, confused Eyes-sclera non icteric Neck-no thyromegaly Lungs-no rales or wheeze Heart-regular S1/S2 Abdomen-soft, non tender Extremities-no lower ext edema Neuro-confused, no facial droop, no weakness of extremity Lab data as noted below. ASSESSMENT & PLAN: Pt is 76 y/o F presents with hx confusion x 1 week , hyperkalemia . Hx renal cell CA with resection, hx cirrhosis possible autoimmune hepatitis CONFUSION WITH DELIRIUM -metabolic Encephalopathy,-multifactorial -elevated ammonia level , underlying infection -UTI -CT head negative, MRI of brain -no evidence of metastasis ( hx of renal cell CA ) -elevated ammonia. Lactulose TID until 3 soft stools daily. -hx of Cirrhosis /autoimmune hepatitis -GI eval requested UTI : possible causing the confusional status urine culture -gram negative bacilli started empirically with Cipro HX OF RENAL CELL CA : appreciate input form Heme onc pt recently started on tyrosine kinase inhibitor for kidney cancer in the form of Axitinib at 3 mg twice a day on 12/20/2016, Axitinib is kept on hold for acute illness, infection HYPERKALEMIA -improved -follow lyes ELEVATED INR -Vitamin K 5mg po given. -Hold coumadin -repeat INR > 6 -no apparent bleeding DM TYPE II -currently hypoglycemic -hold oral meds -insulin sliding scale per protocol HYPOTHYROIDISM -continue levothyroxine HYPERLIPIDEMIA -continue Lipitor -lipid panel in morning A-FIB -rate controlled -hold Coumadin as increased INR -continue atenolol HTN -continue lisinopril -continue atenolol DVT PROPHYLAXIS INR elevated DISPOSITION to be determined Lives at home with son will need PT/OT eval to assess fall risk Medicine follow up with Dr Ward Vital Signs: Date Time Temp Pulse Resp B/P (MAP) Pulse Ox O2 Delivery O2 Flow Rate FiO2 01/05/17 19:43 36.7 63 17 105/66 (79) 95 Room Air 01/05/17 16:00 97 Room Air 01/05/17 14:56 36.2 83 20 112/69 (83) 97 01/05/17 12:00 Room Air 01/05/17 11:21 36.7 78 20 138/68 (91) 97 01/05/17 08:00 Room Air 01/05/17 07:32 36.8 79 16 119/70 (86) 97 Room Air 01/05/17 04:00 Room Air 01/05/17 00:01 Room Air Lab Results: Results Past 24 Hours Test 01/04/17 21:53 01/05/17 05:32 01/05/17 07:23 01/05/17 11:28 Range/Units Total Creatine Kinase 126 127 26-192 U/L Creatine Kinase MB 4.1 4.2 0.5-3.6 ng/ml Creatine Kinase MB Ratio 3.3 3.3 0-3.0 Troponin I 0.105 0.091 0-0.045 ng/ml White Blood Count 12.28 4.8-10.8 K/uL Red Blood Count 4.48 4.2-5.4 M/uL Hemoglobin 13.8 12.0-16.0 g/dL Hematocrit 41.2 37-47 % Mean Corpuscular Volume 92.0 80-100 fL Mean Corpuscular Hemoglobin 30.8 25-34 pg Mean Corpuscular Hemoglobin Concent 33.5 32-36 g/dl RDW Standard Deviation 50.0 36.4-46.3 fL RDW Coefficient of Variation 15.0 11.5-14.5 % Platelet Count 243 130-400 K/uL Mean Platelet Volume 9.5 7.4-10.4 fL Prothrombin Time 77.5 9.0-12.0 SECONDS Prothromb Time International Ratio 6.7 0.9-1.1 Sodium Level 135 136-145 mmol/L Potassium Level 4.7 3.5-5.1 mmol/L Chloride Level 102 98-107 mmol/L Carbon Dioxide Level 25 21-32 mmol/L Anion Gap 8.0 3-11 mmol/L Blood Urea Nitrogen 32 7-18 mg/dl Creatinine 1.35 0.60-1.20 mg/dl Est Creatinine Clear Calc Drug Dose 28.0 ml/min Estimated GFR () 44.1 Estimated GFR (Non- 38.0 BUN/Creatinine Ratio 23.5 10-20 Random Glucose 68 70-99 mg/dl Estimated Average Glucose 146 mg/dl Hemoglobin A1c 6.7 4.5-5.6 % Calcium Level 9.2 8.5-10.1 mg/dl Magnesium Level 2.5 1.8-2.4 mg/dl Total Bilirubin 0.7 0.2-1 mg/dl Aspartate Amino Transf (AST/SGOT) 47 15-37 U/L Alanine Aminotransferase (ALT/SGPT) 40 12-78 U/L Alkaline Phosphatase 93 45-117 U/L Ammonia 161.0 11-32 umol/L Total Protein 8.1 6.4-8.2 gm/dl Albumin 3.3 3.4-5.0 gm/dl Globulin 4.8 2.5-4.0 gm/dl Albumin/Globulin Ratio 0.7 0.9-2 Bedside Glucose 91 189 70-90 mg/dl Microbiology Results 01/05/17 Blood Culture, Received Pending
[2017-01-05 19:43] VITALS: BP 105/66; PULSE 63; TEMP 36.7; O2SAT 95
[2017-01-05] MEDS: ATORVASTATIN 20 MG TAB PO SCH (21:00)
--- NOTE | 2017-01-05 22:10 | DIAGNOSTIC IMAGING REPORT ---
ULTRASOUND RIGHT UPPER QUADRANT ABDOMEN CLINICAL HISTORY: Elevated ammonia level. COMPARISON STUDY: Abdominal CT dated 10/20/2016. TECHNIQUE: Real-time, grayscale, and color flow sonography of the right upper quadrant of the abdomen was performed. Images are reviewed in the transverse and longitudinal planes. FINDINGS: Liver: The liver is cirrhotic in morphology and heterogeneous in echotexture. There is nodularity of the surface contour. There is no intrahepatic biliary ductal dilatation. The main portal vein is patent. Gallbladder: The gallbladder is surgically absent. The common bile duct measures up to 1.1 cm in diameter. Pancreas: Visualized portions of the pancreatic head and body are normal in appearance. The splenic vein is patent. Right kidney: The right kidney is surgically.: is noted in the right renal fossa. Ascites: Trace perihepatic ascites is noted. IMPRESSION: 1. The liver is cirrhotic in morphology and heterogeneous in echotexture. 2. Status post right nephrectomy and cholecystectomy. 3. There is trace perihepatic ascites. Electronically signed by: Hipolito Olson M.D. 01/05/2017 10:09 PM Dictated Date/Time: 01/05/2017 10:06 PM
[2017-01-06] MEDS: LEVOTHYROXINE 100 MCG TAB PO SCH (06:11)
[2017-01-06 07:22] VITALS: BP 119/66; PULSE 69; TEMP 36.4; O2SAT 94
[2017-01-06 07:31] LABS: PROTHROMBIN TIME (PATIENT) 63.4 SECONDS (9.0-12.0)
[2017-01-06 07:33] LABS: INR 5.5 (0.9-1.1)
[2017-01-06 07:36] LABS: BUN/CREATININE RATIO 23.9 (10-20); CALCIUM 9.4 mg/dl (8.5-10.1); CREATININE 1.7 mg/dl (0.60-1.20)
[2017-01-06] MEDS ORDERED: SODIUM CHLORIDE 0.9% 1000ML 1,000 ML IV SCH (08:00)
[2017-01-06] MEDS: LACTULOSE SYRUP 30 GM/45 ML UDP PO SCH ×2 (08:17→13:11)
[2017-01-06] MEDS: BOOST GLUCOSE CONTROL PO SCH ×2 (08:22→17:08)
[2017-01-06] MEDS: INSULIN ASPART 100 UNITS/ML 3 ML PEN SC SCH ×4 (09:06→20:50)
--- NOTE | 2017-01-06 09:30 | Progress Note ---
Progress Note Date of Service Jan 06, 2017. Progress Note Updated by Pharmacy -concerned regarding pt;s coagulopathy on presentation INR > 8 given 5 mg PO Vit K ; INR ~> 6 concern for possible drug interaction with Axitinib/Inlyta recommends on discharge if pt is resumed with Axitinib , Coumadin dose needs to cut to half and needs close follow up with coag clinic for INR monitoring urine culture : E Coli -resistant to Cipro started on Rocephin ( sensitive ) , Ciprofloxacin D/joaquin
[2017-01-06] MEDS ORDERED: CEFTRIAXONE SOD INJ 1 GM in DEXTROSE 5% ADD-VANTAGE 50ML 50 ML IV SCH (10:00)
[2017-01-06 11:26] VITALS: BP 113/70; PULSE 76; TEMP 36.3; O2SAT 98
--- NOTE | 2017-01-06 12:37 | Gastroenterology Progress Note ---
Progress Note Date of Service: Jan 06, 2017 Subjective Pt evaluation today including: conversation w/ patient, physical exam, chart review, lab review, review of studies, review of inpatient medication list Ms. Cortes is 76 yr old female patient with confusion. She was admitted on 01/04/17. She has a hx of recent dx of autoimmune liver disease. Also undergoing oral chemotherapy for renal cell cancer. Because ammonia was elevated, GI was consulted for question of hepatic encephalopathy though her presentation is more consistent with delirium from recent chemo and with current UTI. Review of Systems Constitutional: No fever ENT: No hearing loss Respiratory: No cough Cardiac: No chest pain Abdomen: No pain, No nausea, No vomiting, No diarrhea, No constipation Female : No dysuria Neuro: + memory loss, + problem reported (confusion, inappropraite responses continue) Medications Current Inpatient Medications Medications (Trade) Dose Ordered Sig/Hubert Route Start Time Stop Time Status Last Admin Dose Admin Acetaminophen (Tylenol Tab) 650 mg Q4H PRN PO 01/04/17 18:45 02/03/17 18:44 01/05/17 17:35 650 MG Ondansetron HCl (Zofran Inj) 4 mg Q6H PRN IV 01/04/17 18:45 02/03/17 18:44 Glucose (Glucose 40% Gel) 15-30 GRAMS 15 GRAMS... UD PRN PO 01/04/17 19:00 02/03/17 18:59 Glucose (Glucose Chew Tab) 4-8 Tablets 4 Tabl... UD PRN PO 01/04/17 19:00 02/03/17 18:59 Dextrose (Dextrose 50% 50ML Syringe) 25-50ML OF 50% DW IV FOR... UD PRN IV 01/04/17 19:00 02/03/17 18:59 Glucagon (Glucagon Inj) 1 mg UD PRN SQ 01/04/17 19:00 02/03/17 18:59 Insulin Aspart (novoLOG ASPART) SLIDING SCALE If C... ACHS SC 01/04/17 21:00 02/03/17 20:59 01/06/17 09:06 3 UNITS Lactulose (Chronulac Syrup) 30 gm TID PO 01/05/17 07:00 02/04/17 06:59 01/06/17 08:17 30 GM Atenolol (Tenormin Tab) 50 mg QAM PO 01/05/17 09:00 02/04/17 08:59 01/06/17 08:17 50 MG Atorvastatin Calcium (Lipitor Tab) 40 mg HS PO 01/04/17 21:00 02/03/17 20:59 01/05/17 21:00 40 MG Lisinopril (Zestril Tab) 20 mg QAM PO 01/05/17 09:00 02/04/17 08:59 Future Hold Miscellaneous (Iv Fluids Completed) 1 ea PRN PRN N/A 01/04/17 20:00 01/04/18 19:59 Lorazepam (Ativan Tab) 0.5 mg BID PRN PO 01/04/17 20:30 02/03/17 20:29 01/05/17 17:34 0.5 MG Levothyroxine Sodium (Synthroid Tab) 100 mcg DAILYBB PO 01/06/17 06:30 02/05/17 06:29 01/06/17 06:11 100 MCG Enteral Nutritional Formula (Boost Glucose Control) 1 can BIDM PO 01/05/17 17:00 02/04/17 16:59 01/06/17 08:22 1 CAN Sodium Chloride 1,000 ml @ 80 mls/hr [id number] IV 01/06/17 08:00 01/06/17 20:29 01/06/17 08:17 80 MLS/HR Ceftriaxone Sodium 1 gm/ Dextrose 50 ml @ 100 mls/hr DAILY@1000 IV 01/06/17 10:00 01/11/17 09:59 01/06/17 10:26 100 MLS/HR Objective Vital Signs Date Time Temp Pulse Resp B/P (MAP) Pulse Ox O2 Delivery O2 Flow Rate FiO2 01/06/17 11:26 36.3 76 16 113/70 (84) 98 Room Air 01/06/17 11:14 Room Air 01/06/17 07:22 36.4 69 16 119/66 (83) 94 Room Air 01/06/17 00:00 Room Air 01/05/17 19:43 36.7 63 17 105/66 (79) 95 Room Air 01/05/17 16:00 97 Room Air 01/05/17 14:56 36.2 83 20 112/69 (83) 97 Physical Exam General Appearance: no apparent distress Neck: supple Respiratory/Chest: lungs clear Cardiovascular: regular rate, rhythm, no JVD, no murmur Abdomen: non tender, soft Extremities: non-tender, normal inspection Neurologic/Psych: alert, + pertinent finding (inappropriate answers to simple questions, oriented to person but not place or time. ) Skin: no jaundice Laboratory Results Last 24 Hours Test 01/05/17 16:37 01/05/17 20:12 01/06/17 07:04 01/06/17 07:15 Bedside Glucose 188 mg/dl 220 mg/dl 216 mg/dl Prothrombin Time 63.4 SECONDS Prothromb Time International Ratio 5.5 Sodium Level 138 mmol/L Potassium Level 5.0 mmol/L Chloride Level 107 mmol/L Carbon Dioxide Level 24 mmol/L Anion Gap 7.0 mmol/L Blood Urea Nitrogen 41 mg/dl Creatinine 1.70 mg/dl Est Creatinine Clear Calc Drug Dose 22.3 ml/min Estimated GFR () 33.4 Estimated GFR (Non- 28.8 BUN/Creatinine Ratio 23.9 Random Glucose 207 mg/dl Calcium Level 9.4 mg/dl Test 01/06/17 11:30 Bedside Glucose 258 mg/dl Assessment and Plan Ms. Cortes is a 76 yr old female with confusion in the setting of autoimmune liver disease (may have cirrhosis though unclear), recent chemo for renal cell cancer and current UTI. Suspect this will improve as UTI improves. Plan: 1. UTI tx per primary hospitalist. 2. No indication to check serial ammonias. 3. As has had many BMs, would hold the lactulose. I have seen , examined and agree with the plan as outlined by BABITA Patel as above. -exam reveals soft abd -UTI tx was with resistant to Cipro, now changed to Rocephin -MS alert, 16 BM's yesterday without improvement -NH3 can be elevated in UTI -Ensure has 3 bm's daily -blood cx's
--- NOTE | 2017-01-06 14:38 | Discharge Instructions ---
Discharge Instructions Date of Service Jan 06, 2017. Admission Reason for Admission: Hyperkalemia Discharge Discharge Diagnosis / Problem: HYPERKALEMIA /DELIRIUM /ELEVATED INR Discharge Goals Goal(s): Improve disease control, Diagnostic testing, Therapeutic intervention Activity Recommendations Activity Limitations: resume your previous activity . Instructions / Follow-Up Instructions / Follow-Up HOSPITAL FOLLOW UP : 01/11/2017 1:30 PM Alessia Ward, [facility] LAB : BASIC METABOLIC PANEL /PT/INR ON Tuesday01/10/17 DO NOT TAKE LISINOPRIL NEW MEDICATION ; LOPRESSOR 25 MG TWICE DAILY ( BLOOD PRESSURE MEDICATION ) ATENOLOL DISCONTINUED ANTIBIOTIC FOR URINARY TRACT INFECTION : KEFLEX 500 MG TWICE DAILY FOR 4 MORE DAYS PRESCRIPTIONS SENT TO YOUR PHARMACY AT [facility] COUMADIN DOSE REDUCED TO 2.5 MG DAILY YOU WILL NEED CLOSE FOLLOW UP WITH COUMADIN CLINIC FOR INR CHECK AND COUMADIN DOSE MONITORING DO NOT TAKE ASPIRIN, ADVIL , ALEVE, MOTRIN , IBUPROFEN, NAPROXEN -WILL CAUSE FURTHER DAMAGE TO YOUR KIDNEYS elevated INR for possible drug interaction with Axitinib ( tyrosine kinase inhibitor tx for metastatic renal cell CA ) will need to reduce dose of Coumadin if restarted on Chemo tx and and will need frequent lab draw to monitor INR and Coumadin dose adjustment by Coagulation /Coumadin clinic Current Hospital Diet Patient's current hospital diet: Diabetes Type 2 Diet, Low Potassium Diet (2g K) Discharge Diet Recommended Diet: Diabetes Type 2 Diet, Low Potassium Diet (2g K) Pending Studies Studies pending at discharge: yes List of pending studies: LAB : BASIC METABOLIC PANEL /PT/INR ON 01/10/17 Laboratory Results Hemoglobin A1c Test 01/05/17 05:32 Range/Units Estimated Average Glucose 146 mg/dl Hemoglobin A1c 6.7 H 4.5-5.6 % Medical Emergencies . Who to Call and When: Medical Emergencies: If at any time you feel your situation is an emergency, please call 911 immediately. . Non-Emergent Contact Non-Emergency issues call your: Primary Care Provider . . "Provider Documentation" section prepared by [employer]. . VTE Core Measure Inpt VTE Proph given/why not?: Warfarin (Coumadin)
[2017-01-06 14:52] VITALS: BP 125/71; PULSE 86; TEMP 36.6; O2SAT 97
--- NOTE | 2017-01-06 18:10 | Progress Note ---
Internal Med Progress Note Date of Service: Jan 06, 2017. Provider Documentation: SUBJECTIVE: appears to be more awake and alert today confusion remains -thinks she is in [place] not climbing out of bed , no agitation mentions that she is feeling much better today wants to go home with her son OBJECTIVE: Vital Signs-as noted below Exam: General-elderly female, no sign of distress,pleasantly confused Eyes-sclera non icteric Neck-no thyromegaly Lungs-no rales or wheeze Heart-regular S1/S2 Abdomen-soft, non tender Extremities-no lower ext edema Neuro-no focal neurological deficit , confusion Lab data as noted below. ASSESSMENT & PLAN: Pt is 76 y/o F presents with hx confusion x 1 week , hyperkalemia . Hx renal cell CA with resection, hx cirrhosis possible autoimmune hepatitis CONFUSION WITH DELIRIUM -symptom has improved -metabolic Encephalopathy,-multifactorial -elevated ammonia level , underlying infection -UTI -CT head negative, MRI of brain -no evidence of metastasis ( hx of renal cell CA ) -elevated ammonia. Lactulose TID until 3 soft stools daily. -hx of Cirrhosis /autoimmune hepatitis -GI eval requested -appreciate input ; does not think pt is in hepatic encephalopathy awake and alert, no somnolence , no asterixis possible delirium due to infection Lactulose D/c as pt had multiple bowel movement UTI : possible causing the confusional status urine culture -gram negative bacilli/E coli resistant to Cipro -D/joaquin started on Rocephin -sensitive HORTENCIA ON CKD STAGE 3: due to GI loss -had number of bowel movements with lactulose -d/joaquin ordered for IVF follow PRP cont to hold lisinopril HX OF RENAL CELL CA : appreciate input form Heme onc pt recently started on tyrosine kinase inhibitor for kidney cancer in the form of Axitinib at 3 mg twice a day on 12/20/2016, Axitinib is kept on hold for acute illness, infection there is also concern for drug interaction with Coumadin causing coagulopathy Coumadin dose needs to be decreased as Axitinib is resumed later as out pt - needs close follow up with Coag clinic HYPERKALEMIA -resolved D/c Lisinopril low K diet follow BMP ELEVATED INR INR > 8 possible due to drug interaction -Vitamin K 5mg po given. -Hold Coumadin -repeat INR > 6 -5 cont to hold Coumadin till INR < 2 -no apparent bleeding DM TYPE II -currently hypoglycemic -hold oral meds -insulin sliding scale per protocol HYPOTHYROIDISM -continue levothyroxine HYPERLIPIDEMIA -continue Lipitor -lipid panel in morning A-FIB -rate controlled -hold Coumadin as increased INR -continue atenolol HTN -ACEI on hold for hyperkalemia /HORTENCIA -continue atenolol DVT PROPHYLAXIS INR elevated DISPOSITION Lives at home with son -wants to return home ordered for PT/OT eval Medicine follow up with Dr Ward son given update over phone Vital Signs: Date Time Temp Pulse Resp B/P (MAP) Pulse Ox O2 Delivery O2 Flow Rate FiO2 01/06/17 16:00 Room Air 01/06/17 14:52 36.6 86 18 125/71 (89) 97 01/06/17 11:26 36.3 76 16 113/70 (84) 98 Room Air 01/06/17 11:14 Room Air 01/06/17 07:22 36.4 69 16 119/66 (83) 94 Room Air 01/06/17 00:00 Room Air 01/05/17 19:43 36.7 63 17 105/66 (79) 95 Room Air Lab Results: Results Past 24 Hours Test 01/05/17 20:12 01/06/17 07:04 01/06/17 07:15 01/06/17 11:30 Range/Units Bedside Glucose 220 216 258 70-90 mg/dl Prothrombin Time 63.4 9.0-12.0 SECONDS Prothromb Time International Ratio 5.5 0.9-1.1 Sodium Level 138 136-145 mmol/L Potassium Level 5.0 3.5-5.1 mmol/L Chloride Level 107 98-107 mmol/L Carbon Dioxide Level 24 21-32 mmol/L Anion Gap 7.0 3-11 mmol/L Blood Urea Nitrogen 41 7-18 mg/dl Creatinine 1.70 0.60-1.20 mg/dl Est Creatinine Clear Calc Drug Dose 22.3 ml/min Estimated GFR () 33.4 Estimated GFR (Non- 28.8 BUN/Creatinine Ratio 23.9 10 Random Glucose 207 70-99 mg/dl Calcium Level 9.4 8.5-10.1 mg/dl Test 01/06/17 16:21 Range/Units Bedside Glucose 206 70-90 mg/dl Microbiology Results 01/05/17 Blood Culture, Received Pending
[2017-01-06] MEDS: LORAZEPAM 0.5 MG TAB PO PRN (19:27)
[2017-01-06] MEDS: ATORVASTATIN 20 MG TAB PO SCH (20:44)
[2017-01-07 00:20] VITALS: BP 154/76; PULSE 89; TEMP 36.7; O2SAT 96
[2017-01-07 04:00] VITALS: BP 146/85; PULSE 103; TEMP 36.5; O2SAT 98
[2017-01-07] MEDS: LEVOTHYROXINE 100 MCG TAB PO SCH (05:48)
[2017-01-07 06:17] LABS: INR 2.9 (0.9-1.1); PROTHROMBIN TIME (PATIENT) 32.2 SECONDS (9.0-12.0)
[2017-01-07 06:37] LABS: BUN/CREATININE RATIO 26.6 (10-20); CALCIUM 9.1 mg/dl (8.5-10.1); CREATININE 1.14 mg/dl (0.60-1.20); POTASSIUM 4.6 mmol/L (3.5-5.1)
[2017-01-07 06:50] VITALS: BP 144/78; PULSE 96; TEMP 36.4; O2SAT 96
[2017-01-07] MEDS: BOOST GLUCOSE CONTROL PO SCH ×2 (08:00→18:24)
[2017-01-07] MEDS: INSULIN ASPART 100 UNITS/ML 3 ML PEN SC SCH ×4 (08:28→20:15)
[2017-01-07] MEDS: CEPHALEXIN MONOHYDRATE 500 MG CAP PO SCH ×2 (08:30→20:13)
--- NOTE | 2017-01-07 08:47 | Progress Note ---
Internal Med Progress Note Date of Service: Jan 07, 2017. Provider Documentation: SUBJECTIVE: awake and alert , pr nursing -was confused , agitated last night very pleasant and co operative this morning finished breakfast , knows her name , knows that she is in [facility] pt still has persistent confusion similar to dementia -very poor short term memory , repeating same sentences wants to go home OBJECTIVE: Vital Signs-as noted below Exam: General-elderly female, no sign of distress,pleasantly confused Eyes-sclera non icteric Neck-no thyromegaly Lungs-no rales or wheeze Heart-regular S1/S2 Abdomen-soft, non tender Extremities-no lower ext edema Neuro-no focal neurological deficit , confusion Lab data as noted below. ASSESSMENT & PLAN: Pt is 76 y/o F presents with hx confusion x 1 week , hyperkalemia . Hx renal cell CA with resection, hx cirrhosis possible autoimmune hepatitis CONFUSION WITH DELIRIUM -symptom has improved -no agitation expect for evening sun downing symptoms able to have conversation mental status appears to be baseline , although pt possible has baseline dementia -no formal diagnosis yet -spoke with son -pt been forgetful for some time -presented with metabolic Encephalopathy,-multifactorial -elevated ammonia level , underlying infection -UTI -CT head negative, MRI of brain -no evidence of metastasis ( hx of renal cell CA ) -hx of Cirrhosis /autoimmune hepatitis -GI eval requested -appreciate input ; does not think pt is in hepatic encephalopathy awake and alert, no somnolence , no asterixis possible delirium due to infection Lactulose D/c as pt had multiple bowel movement UTI : possible causing the confusional status urine culture -gram negative bacilli/E coli resistant to Cipro -D/joaquin started on Rocephin -sensitive Abx changed to PO Keflex -complete total 7 days tx HORTENCIA ON CKD STAGE 3: resolved with IVF ; cr at baseline due to GI loss -had number of bowel movements with lactulose -d/joaquin Lisinopril D.joaquin HX OF RENAL CELL CA : appreciate input form Heme onc pt recently started on tyrosine kinase inhibitor for kidney cancer in the form of Axitinib at 3 mg twice a day on 12/20/2016, Axitinib is kept on hold for acute illness, infection there is also concern for drug interaction with Coumadin causing coagulopathy Coumadin dose needs to be decreased as Axitinib is resumed later as out pt - needs close follow up with Coag clinic HYPERKALEMIA -resolved D/c Lisinopril-pt will not be candidate for future ACEI tx low K diet follow BMP ELEVATED INR INR > 8 possible due to drug interaction -Vitamin K 5mg po given. -Hold Coumadin -repeat INR > 6 -5 -5.5 -> 2.9 cont to hold Coumadin till INR < 2 -no apparent bleeding repeat out pt INR with next physician visit DM TYPE II -hold oral meds -insulin sliding scale per protocol HYPOTHYROIDISM -continue levothyroxine HYPERLIPIDEMIA -continue Lipitor -lipid panel in morning CHRONIC A-FIB remains in Afib with rate controlled on anticoagulation with Coumadin presented with elevated INR for possible drug interaction with Axitinib ( tyrosine kinase inhibitor tx for metastatic renal cell CA ) will need to reduce dose of Coumadin if pt restarted on Chemo tx and frequent lab draw to monitor INR and Coumadin dose adjustment my Coag clinic -pt remains in high risk for CVA with persistent Afib -will change beta barbara Atenolol to Metoprolol HTN -ACEI on hold for hyperkalemia /HORTENCIA -will not resume ACEI or ARB for risk of hyperkalemia -cont beta barbara DVT PROPHYLAXIS INR 2.9 DISPOSITION Lives at home with son -wants to return home had PT /OT eval - able to ambulate with minimum assistance spoke with son over phone -wants pt to return home plan to discharge home today with Son Medicine follow up with Dr Ward Vital Signs: Date Time Temp Pulse Resp B/P (MAP) Pulse Ox O2 Delivery O2 Flow Rate FiO2 01/07/17 06:50 36.4 96 16 144/78 (100) 96 Room Air 01/07/17 04:00 36.5 103 18 146/85 (105) 98 Room Air 01/07/17 04:00 Room Air 01/07/17 00:20 36.7 89 20 154/76 (102) 96 Room Air 01/06/17 16:00 Room Air 01/06/17 14:52 36.6 86 18 125/71 (89) 97 01/06/17 11:26 36.3 76 16 113/70 (84) 98 Room Air 01/06/17 11:14 Room Air Lab Results: Results Past 24 Hours Test 01/06/17 11:30 01/06/17 16:21 01/06/17 20:05 01/07/17 05:36 Range/Units Bedside Glucose 258 206 268 70-90 mg/dl Prothrombin Time 32.2 9.0-12.0 SECONDS Prothromb Time International Ratio 2.9 0.9-1.1 Sodium Level 137 136-145 mmol/L Potassium Level 4.6 3.5-5.1 mmol/L Chloride Level 107 98-107 mmol/L Carbon Dioxide Level 26 21-32 mmol/L Anion Gap 5.0 3-11 mmol/L Blood Urea Nitrogen 30 7-18 mg/dl Creatinine 1.14 0.60-1.20 mg/dl Est Creatinine Clear Calc Drug Dose 33.2 ml/min Estimated GFR () 54.1 Estimated GFR (Non- 46.7 BUN/Creatinine Ratio 26.6 01-07 Random Glucose 194 70-99 mg/dl Calcium Level 9.1 8.5-10.1 mg/dl Test 01/07/17 07:46 Range/Units Bedside Glucose 178 70-90 mg/dl
[2017-01-07] MEDS ORDERED: LPR25 PO (08:58)
[2017-01-07] MEDS ORDERED: KFL500 PO (08:59)
[2017-01-07] MEDS ORDERED: METOPROLOL TARTRATE 25 MG TAB PO SCH (09:00)
[2017-01-07] MEDS: METOPROLOL TARTRATE 25 MG TAB PO SCH ×2 (09:14→20:13)
[2017-01-07 11:21] VITALS: BP 143/65; PULSE 83; TEMP 36.6; O2SAT 95
--- NOTE | 2017-01-07 13:10 | Progress Note ---
Progress Note Date of Service Jan 07, 2017. Progress Note Pt's son came by worried about Pt;s ongoing forgetfulness and confusion 1 week back before starting on the chemo thx , pt was totally oriented , independent concerned that pt may have to be at home for few hours alone as Son has to work does not feel pt will do well in SNF or alf plan to return home with home health and Home PT-son will chose the agency will benefit with home health visiting nurse as pt will need Lab draw for INR and renal function will observe the pt today , hoping more improvement of mental status confusion as electrolytes been stable been treated for UTI possible discharge home tomorrow if pt continues to improve Anticoagulation clinic updated regarding plan
[2017-01-07 16:04] VITALS: BP 149/80; PULSE 82; TEMP 36.5; O2SAT 100
[2017-01-07] MEDS: ATORVASTATIN 20 MG TAB PO SCH (20:12)
[2017-01-07 23:45] VITALS: BP 140/79; PULSE 72; TEMP 36.6; O2SAT 94
[2017-01-08] MEDS: ACETAMINOPHEN 325 MG TAB PO PRN (04:05)
[2017-01-08 04:08] VITALS: BP 169/77; PULSE 74; TEMP 36.6; O2SAT 92
[2017-01-08] MEDS: LEVOTHYROXINE 100 MCG TAB PO SCH (05:33)
[2017-01-08 06:35] LABS: INR 1.7 (0.9-1.1); PROTHROMBIN TIME (PATIENT) 18.6 SECONDS (9.0-12.0)
[2017-01-08 06:53] LABS: CALCIUM 9.1 mg/dl (8.5-10.1); CREATININE 1.23 mg/dl (0.60-1.20); POTASSIUM 4.7 mmol/L (3.5-5.1)
[2017-01-08 07:01] VITALS: BP 135/74; PULSE 80; TEMP 36.2; O2SAT 92
[2017-01-08] MEDS: METOPROLOL TARTRATE 25 MG TAB PO SCH (08:21)
[2017-01-08] MEDS: CEPHALEXIN MONOHYDRATE 500 MG CAP PO SCH (08:21)
[2017-01-08] MEDS: BOOST GLUCOSE CONTROL PO SCH (08:26)
[2017-01-08] MEDS: INSULIN ASPART 100 UNITS/ML 3 ML PEN SC SCH ×2 (09:34→12:43)
[2017-01-08] MEDS ORDERED: CMD25 PO (11:07)
[2017-01-08] MEDS ORDERED: WARFARIN SOD 5 MG TAB PO ONE (11:15)
[2017-01-08 11:25] VITALS: BP 145/68; PULSE 78; TEMP 36.6; O2SAT 96
[2017-01-08 11:28] VITALS: BP 145/68; PULSE 78; TEMP 36.6; O2SAT 96
--- NOTE | 2017-01-08 13:44 | Progress Note ---
Internal Med Progress Note Date of Service: Jan 08, 2017. Provider Documentation: SUBJECTIVE: more oriented today , asking to go home can tell her name and says she feels fine , pt is more coherent today , mental status continues to improve plan to discharge home with son today arrangements made for home health visiting nurse OBJECTIVE: Vital Signs-as noted below Exam: General-elderly female, no sign of distress,more oriented today Eyes-sclera non icteric Neck-no thyromegaly Lungs-no rales or wheeze Heart-regular S1/S2 Abdomen-soft, non tender Extremities-no lower ext edema Neuro-no focal neurological deficit , baseline forgetfulness, confusion Lab data as noted below. ASSESSMENT & PLAN: Pt is 76 y/o F presents with hx confusion x 1 week , hyperkalemia . Hx renal cell CA with resection, hx cirrhosis possible autoimmune hepatitis CONFUSION WITH DELIRIUM -symptom has improved -no agitation expect for evening sun downing symptoms able to have conversation mental status appears to be baseline , although pt possible has baseline dementia -no formal diagnosis yet -spoke with son -pt been forgetful for some time -presented with metabolic Encephalopathy,-multifactorial -elevated ammonia level , underlying infection -UTI -CT head negative, MRI of brain -no evidence of metastasis ( hx of renal cell CA ) -hx of Cirrhosis /autoimmune hepatitis -GI eval requested -appreciate input ; does not think pt is in hepatic encephalopathy awake and alert, no somnolence , no asterixis possible delirium due to infection Lactulose D/c as pt had multiple bowel movement pt is more awake and alert today , oriented to place and person approx baseline lives with son stable to be discharged home with family support UTI : possible causing the confusional status mental status gradually improving urine culture -gram negative bacilli/E coli resistant to Cipro -D/joaquin started on Rocephin -sensitive Abx changed to PO Keflex -complete total 7 days tx HORTENCIA ON CKD STAGE 3: resolved with IVF ; cr at baseline due to GI loss -had number of bowel movements with lactulose -d/joaquin Lisinopril D.joaquin given hyperkalemia and HORTENCIA -Lisinopril will not be resumed HX OF RENAL CELL CA : appreciate input form Heme onc pt recently started on tyrosine kinase inhibitor for kidney cancer in the form of Axitinib at 3 mg twice a day on 12/20/2016, Axitinib is kept on hold for acute illness, infection there is also concern for drug interaction with Coumadin causing coagulopathy Coumadin dose needs to be decreased as Axitinib is resumed later as out pt - needs close follow up with Coag clinic Coumadin clinic updated HYPERKALEMIA -resolved D/c Lisinopril-pt will not be candidate for future ACEI tx low K diet ELEVATED INR resolved , after vit K and holding Coumadin INR > 8 possible due to drug interaction -Vitamin K 5mg po given. -Hold Coumadin -repeat INR > 6 -5 -5.5 -> 2.9 INR 1.7 today Coumadin resumed repeat INR on Tuesday01/10/17 Coumadin dose needs to be adjusted/reduced once Axitinib resumed DM TYPE II - oral meds-resumed -insulin sliding scale per protocol HYPOTHYROIDISM -continue levothyroxine HYPERLIPIDEMIA -continue Lipitor -lipid panel in morning CHRONIC A-FIB remains in Afib with rate controlled on anticoagulation with Coumadin presented with elevated INR for possible drug interaction with Axitinib ( tyrosine kinase inhibitor tx for metastatic renal cell CA ) will need to reduce dose of Coumadin if pt restarted on Chemo tx and frequent lab draw to monitor INR and Coumadin dose adjustment my Coag clinic -pt remains in high risk for CVA with persistent Afib will need continued anticoagulation -changed beta barbara Atenolol to Metoprolol for better cardiac effect HTN -ACEI on hold for hyperkalemia /HORTENCIA -will not resume ACEI or ARB for risk of hyperkalemia -cont beta barbara DVT PROPHYLAXIS Coumadin DISPOSITION plan to discharge home today with Son home health visiting nurse with [facility] Medicine follow up with Dr Ward Vital Signs: Date Time Temp Pulse Resp B/P (MAP) Pulse Ox O2 Delivery O2 Flow Rate FiO2 01/08/17 11:28 36.6 78 18 96 Room Air 01/08/17 11:25 36.6 78 18 145/68 (93) 96 Room Air 01/08/17 08:10 Room Air 01/08/17 07:01 36.2 80 18 135/74 (94) 92 Room Air 01/08/17 04:08 36.6 74 22 169/77 (107) 92 Room Air 01/08/17 00:05 Room Air 01/07/17 23:45 36.6 72 18 140/79 (99) 94 Room Air 01/07/17 20:05 Room Air 01/07/17 16:04 36.5 82 20 149/80 (103) 100 Room Air 01/07/17 15:14 Room Air Lab Results: Results Past 24 Hours Test 01/07/17 17:13 01/07/17 20:03 01/08/17 06:01 01/08/17 07:37 Range/Units Bedside Glucose 188 213 215 70-90 mg/dl Prothrombin Time 18.6 9.0-12.0 SECONDS Prothromb Time International Ratio 1.7 0.9-1.1 Sodium Level 134 136-145 mmol/L Potassium Level 4.7 3.5-5.1 mmol/L Chloride Level 105 98-107 mmol/L Carbon Dioxide Level 22 21-32 mmol/L Anion Gap 7.0 3-11 mmol/L Blood Urea Nitrogen 27 7-18 mg/dl Creatinine 1.23 0.60-1.20 mg/dl Est Creatinine Clear Calc Drug Dose 30.8 ml/min Estimated GFR () 49.3 Estimated GFR (Non- 42.6 BUN/Creatinine Ratio 22.0 01-07 Random Glucose 231 70-99 mg/dl Calcium Level 9.1 8.5-10.1 mg/dl Test 01/08/17 11:50 Range/Units Bedside Glucose 305 70-90 mg/dl
--- NOTE | 2017-01-08 13:45 | Discharge Summary ---
Discharge Summary Date of Service Jan 08, 2017. Discharge Summary Admission Date: Jan 04, 2017 at 18:00 Discharge Date: Jan 08, 2017 Discharge Disposition: Home with services Principal Diagnosis: HYPERKALEMIA /DELIRIUM /ELEVATED INR Procedures: LIVER USG : IMPRESSION: 1. The liver is cirrhotic in morphology and heterogeneous in echotexture. 2. Status post right nephrectomy and cholecystectomy. 3. There is trace perihepatic ascites. CT HEAD WITH OUT CONTRAST : IMPRESSION: 1. No acute intracranial abnormality. 2. Atrophy with chronic microvascular ischemic changes. Consultations: GERALDO RODGERS HEME ONC -DR CADENA Medication Reconciliation New Medications: Metoprolol Tartrate (Lopressor) 25 Mg Tab 25 MG PO BID for 30 Days, #60 TAB 2 Refills Warfarin Sod (Coumadin) 2.5 Mg Tab 1 TAB PO DAILY for 30 Days, #30 TABS 3 Refills Cephalexin Monohydrate (Cephalexin) 500 Mg Cap 500 MG PO BID for 4 Days, #8 CAP Continued Medications: Atorvastatin (Lipitor) 40 Mg Tab 40 MG PO HS, TAB Glipizide (Glucotrol) 10 Mg Tab 10 MG PO BID Levothyroxine Sodium (Synthroid) 100 Mcg Tab 100 MCG PO QAM Metformin Hcl (Glucophage) 500 Mg Tab 500 MG PO BID, TAB Discontinued Medications: Atenolol (Atenolol) 50 Mg Tab 50 MG PO QAM Axitinib (Inlyta) 1 Mg Tab 3 TABS PO BID Lisinopril (Lisinopril) 20 Mg Tab 20 MG PO QAM Warfarin Sod (Jantoven) 5 Mg Tab 5 MG PO DAILY Admission Information HPI (per Admitting provider): Pt is 76 y/o F with hx renal cell CA with hx R sided resection with recent recurrence in that region and 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 Hx cirrhosis, autoimmune hepatitis followed by geraldo RODGERS, holding on biopsy secondary to active CA. Hx a-fib, CAD s/p CABG 1995, DM II, hyperlipidemia, hypothyroidism. Presents with son with c/o new onset confusion x 1 week and elevated K of 6 on out pt labs today. Hx obtained from son as pt confused and cannot give hx. Son denies hx confusion in past and states pt at baseline pt is ambulatory, self completes her ADL's, cooks meals daily, and takes care of her own meds. One week ago he noticed pt started to get confused to time and place and this has progressed and pt now irritable, combative. Pt ate little bit of toast this am, hasn't eaten since. Thinks pt taking her meds past couple of days and reports that she took her Coumadin this am (son is unsure of the dose). Pt was states pt was started on Axitinib 2 weeks ago for her renal cell CA (has not been on this before). Son denies any known falls or trauma. He hasn't noticed pt having any fever/chills, diaphoresis, vomiting, syncope, noted SOB, cough, choking, rhinorrhea, extremity edema, rashes. Pt had labs this am showing K of 6 and was sent to ER. In ER POC K was 6.9 and pt was given Calcium gluconate, insulin-R 10 units IV, dextrose, albuterol neb for hyperkalemia. (serum was hemolyzed and repeat K was 5.3). Ammonia was 170. BUN: 33, CR: 1.5 (past month has been ~1.3, previous ~1.0). INR:8. Troponin 0.098, EKG: a-fib, no peaked T waves. Negative head CT and CXR: stable mild cardiomegaly, no acute process. Pt had MRI yesterday: no evidence of metastatic disease, moderately empty sella turcica unchanged since 2013, small old lacunar infarct in anterior left basal ganglionic region, mild-moderate chronic white matter microvascular ischemic changes. Physical Exam (per Admitting): General Appearance: WD/WN, + pertinent finding (Pt very confused, repeatedly yelling "help me", trying to take off BP cuff, kicking legs) Head: normocephalic, atraumatic Eyes: normal inspection, PERRL, EOMI (fairly good EOM exam with pt's cooperation), sclerae normal ENT: hearing grossly normal, TMs normal, pharynx normal, + pertinent finding (no rhinorrhea, no epistaxis) Neck: supple, no adenopathy, no JVD, trachea midline Respiratory/Chest: normal breath sounds (Difficult to fully auscultate lung sounds as pt uncooperative and yelling, however no wheezing/rhonchi/rales noted ), no respiratory distress, no accessory muscle use Cardiovascular: no JVD, normal peripheral pulses, + irregularly irregular, + pertinent finding (no murmur appreciated, pt difficult to auscultate secondary to unwillingness and yelling ) Abdomen/GI: normal bowel sounds, soft, + pertinent finding (difficult to assess if tender, as pt yells anywhere touch her, no rigidity, non-distended) Back: normal inspection Extremities/Musculoskelatal: normal capillary refill, no pedal edema, + pertinent finding (limited ROM R shoulder and R elbow (son states this is chronic), otherwise moving left upper extremity and bilaterally lower extremities, unable to assess if any tenderness to palpation as pt yells with any touch. Pedal pushes intact) Neurologic/Psych: alert, + pertinent finding (Disoriented. Oriented to person only. Yelling random phrases. Difficult to fully assess. No facial droop , negative babinski) Skin: warm/dry (no jaundice. +yellow green ecchymosis to mid distal sternum. +few approx 1cm ecchymosis to bilateral forearms) Hospital Course Pt is 76 y/o F presents with hx confusion x 1 week , hyperkalemia . Hx renal cell CA with resection, hx cirrhosis possible autoimmune hepatitis CONFUSION WITH DELIRIUM -symptom has improved -no agitation expect for evening sun downing symptoms able to have conversation mental status appears to be baseline , although pt possible has baseline dementia -no formal diagnosis yet -spoke with son -pt been forgetful for some time -presented with metabolic Encephalopathy,-multifactorial -elevated ammonia level , underlying infection -UTI -CT head negative, MRI of brain -no evidence of metastasis ( hx of renal cell CA ) -hx of Cirrhosis /autoimmune hepatitis -GI eval requested -appreciate input ; does not think pt is in hepatic encephalopathy awake and alert, no somnolence , no asterixis possible delirium due to infection Lactulose D/c as pt had multiple bowel movement pt is more awake and alert today , oriented to place and person approx baseline lives with son stable to be discharged home with family support UTI : possible causing the confusional status mental status gradually improving urine culture -gram negative bacilli/E coli resistant to Cipro -D/joaquin started on Rocephin -sensitive Abx changed to PO Keflex -complete total 7 days tx HORTENCIA ON CKD STAGE 3: resolved with IVF ; cr at baseline due to GI loss -had number of bowel movements with lactulose -d/joaquin Lisinopril D.joaquin given hyperkalemia and HORTENCIA -Lisinopril will not be resumed HX OF RENAL CELL CA : appreciate input form Heme onc pt recently started on tyrosine kinase inhibitor for kidney cancer in the form of Axitinib at 3 mg twice a day on 12/20/2016, Axitinib is kept on hold for acute illness, infection there is also concern for drug interaction with Coumadin causing coagulopathy Coumadin dose needs to be decreased as Axitinib is resumed later as out pt - needs close follow up with Coag clinic Coumadin clinic updated HYPERKALEMIA -resolved D/c Lisinopril-pt will not be candidate for future ACEI tx low K diet ELEVATED INR resolved , after vit K and holding Coumadin INR > 8 possible due to drug interaction -Vitamin K 5mg po given. -Hold Coumadin -repeat INR > 6 -5 -5.5 -> 2.9 INR 1.7 today Coumadin resumed repeat INR on Tuesday01/10/17 Coumadin dose needs to be adjusted/reduced once Axitinib resumed DM TYPE II - oral meds-resumed -insulin sliding scale per protocol HYPOTHYROIDISM -continue levothyroxine HYPERLIPIDEMIA -continue Lipitor -lipid panel in morning CHRONIC A-FIB remains in Afib with rate controlled on anticoagulation with Coumadin presented with elevated INR for possible drug interaction with Axitinib ( tyrosine kinase inhibitor tx for metastatic renal cell CA ) will need to reduce dose of Coumadin if pt restarted on Chemo tx and frequent lab draw to monitor INR and Coumadin dose adjustment my Coag clinic -pt remains in high risk for CVA with persistent Afib will need continued anticoagulation -changed beta barbara Atenolol to Metoprolol for better cardiac effect HTN -ACEI on hold for hyperkalemia /HORTENCIA -will not resume ACEI or ARB for risk of hyperkalemia -cont beta barbara DVT PROPHYLAXIS Coumadin DISPOSITION plan to discharge home today with Son home health visiting nurse with [facility] Medicine follow up with Dr Ward Total time spent on discharge = 40 mins This includes examination of the patient, discharge planning, medication reconciliation, and communication with other providers. Discharge Instructions Discharge Instructions Date of Service Jan 06, 2017. Admission Reason for Admission: Hyperkalemia Discharge Discharge Diagnosis / Problem: HYPERKALEMIA /DELIRIUM /ELEVATED INR Discharge Goals Goal(s): Improve disease control, Diagnostic testing, Therapeutic intervention Activity Recommendations Activity Limitations: resume your previous activity . Instructions / Follow-Up Instructions / Follow-Up HOSPITAL FOLLOW UP : 01/11/2017 1:30 PM Alessia Ward DO Family Practice [facility] LAB : BASIC METABOLIC PANEL /PT/INR ON Tuesday01/10/17 DO NOT TAKE LISINOPRIL NEW MEDICATION ; LOPRESSOR 25 MG TWICE DAILY ( BLOOD PRESSURE MEDICATION ) ATENOLOL DISCONTINUED ANTIBIOTIC FOR URINARY TRACT INFECTION : KEFLEX 500 MG TWICE DAILY FOR 4 MORE DAYS PRESCRIPTIONS SENT TO YOUR PHARMACY AT [facility] COUMADIN DOSE REDUCED TO 2.5 MG DAILY YOU WILL NEED CLOSE FOLLOW UP WITH COUMADIN CLINIC FOR INR CHECK AND COUMADIN DOSE MONITORING DO NOT TAKE ASPIRIN, ADVIL , ALEVE, MOTRIN , IBUPROFEN, NAPROXEN -WILL CAUSE FURTHER DAMAGE TO YOUR KIDNEYS elevated INR for possible drug interaction with Axitinib ( tyrosine kinase inhibitor tx for metastatic renal cell CA ) will need to reduce dose of Coumadin if restarted on Chemo tx and and will need frequent lab draw to monitor INR and Coumadin dose adjustment by Coagulation /Coumadin clinic Current Hospital Diet Patient's current hospital diet: Diabetes Type 2 Diet, Low Potassium Diet (2g K) Discharge Diet Recommended Diet: Diabetes Type 2 Diet, Low Potassium Diet (2g K) Pending Studies Studies pending at discharge: yes List of pending studies: LAB : BASIC METABOLIC PANEL /PT/INR ON 01/10/17 Laboratory Results Hemoglobin A1c Test 01/05/17 05:32 Range/Units Estimated Average Glucose 146 mg/dl Hemoglobin A1c 6.7 H 4.5-5.6 % Medical Emergencies . Who to Call and When: Medical Emergencies: If at any time you feel your situation is an emergency, please call 911 immediately. . Non-Emergent Contact Non-Emergency issues call your: Primary Care Provider . . "Provider Documentation" section prepared by [employer]. . VTE Core Measure Inpt VTE Proph given/why not?: Warfarin (Coumadin)
== END 2017-01-08 13:48 | disposition home health service (06) | DRG 682 ==
LOC: C.EDB 14:06 → C.MED 17:09 → ENRESERV 17:29 → OBSVTOIN 18:00 → ENRESERV 01-06 15:24 → C.4E 01-06 18:48
PROVIDERS: ADMIT Hospitalist; ATTEND Hospitalist
DX: N17.9 Acute kidney failure, unspecified (principal); G93.41 Metabolic encephalopathy; C64.9 Malignant neoplasm of unspecified kidney, except renal pelvis; C78.6 Secondary malignant neoplasm of retroperitoneum and peritoneum; E72.20 Disorder of urea cycle metabolism, unspecified; N39.0 Urinary tract infection, site not specified; E87.5 Hyperkalemia; B96.20 Unspecified Escherichia coli [E. coli] as the cause of diseases classified elsewhere; Z16.23 Resistance to quinolones and fluoroquinolones; R79.1 Abnormal coagulation profile; T45.1X5A Adverse effect of antineoplastic and immunosuppressive drugs, initial encounter; R74.8 Abnormal levels of other serum enzymes; E83.42 Hypomagnesemia; K74.60 Unspecified cirrhosis of liver; K75.4 Autoimmune hepatitis; I48.2 Chronic atrial fibrillation; I25.10 Atherosclerotic heart disease of native coronary artery without angina pectoris; I12.9 Hypertensive chronic kidney disease with stage 1 through stage 4 chronic kidney disease, or unspecified chronic kidney disease; E11.22 Type 2 diabetes mellitus with diabetic chronic kidney disease; N18.3 Chronic kidney disease, stage 3 (moderate); E11.649 Type 2 diabetes mellitus with hypoglycemia without coma; E03.9 Hypothyroidism, unspecified; E78.5 Hyperlipidemia, unspecified; F03.90 Unspecified dementia, unspecified severity, without behavioral disturbance, psychotic disturbance, mood disturbance, and anxiety; Z90.5 Acquired absence of kidney; Z95.1 Presence of aortocoronary bypass graft; Z79.01 Long term (current) use of anticoagulants; Z79.84 Long term (current) use of oral hypoglycemic drugs; Z79.899 Other long term (current) drug therapy

== ENCOUNTER → 2017-01-26 | Outpatient (CLI) | payer OTHER ==
[~2017-01-26] MED LIST changes: +ACET-1138 PO; -ACET-749 PO; -ASPI81TA28 PO; +AXIT1TAB PO; +CALC500C70 PO; -CLC100 PO; +CMD25 PO; +CZR25 PO; -FRRS300 PO; -FURO-85 PO; +KFL500 PO; +LPR25 PO; -LSN20 PO; +METO50TA17 PO; -PRLSR20 PO; -PRVHFAIN INH; -TNR50 PO
[2017-01-26 11:09] LABS: PROTHROMBIN TIME (PATIENT) 45.8 SECONDS (9.0-12.0)
--- NOTE | 2017-02-07 08:57 | CODING QUERY MEDICAL NECESSITY ---
Valid Physician Order Needed A valid physician order must be submitted in order to properly bill for the service(s) provided, including date of service(s), valid diagnosis, and physician signature. If these tests are done on a recurring basis the original physican order must be submitted in order to code and bill for the service(s) provided. Please fax us the original, signed physician order so that we may expedite billing to [phone] DOS 01/26/17 * PT/INR Thank you Shantelle [facility] Information Management
== END | disposition home or self-care (01) ==
LOC: C.LABSPEC 10:19
PROVIDERS: ATTEND Family Medicine
DX: C64.1 Malignant neoplasm of right kidney, except renal pelvis (principal); I12.9 Hypertensive chronic kidney disease with stage 1 through stage 4 chronic kidney disease, or unspecified chronic kidney disease; N18.9 Chronic kidney disease, unspecified; E11.22 Type 2 diabetes mellitus with diabetic chronic kidney disease

== ENCOUNTER 2017-02-11 11:50 | Inpatient (IN) | payer OTHER ==
[~2017-02-11] VITALS: Ht 157.5 cm; Wt 54.5 kg
[~2017-02-11 11:50] MED LIST changes: -ACET-1138 PO; -ACET-1256 PO; -AXIT1TAB PO; -CALC500C70 PO; -CZR25 PO; -METO50TA17 PO
[2017-02-11] MEDS ORDERED: SODIUM CHLORIDE 0.9% 1000ML 1,000 ML IV ONE (12:28)
[2017-02-11] MEDS ORDERED: HYDROmorphone INJ 0.5 MG/0.5 ML SYR IV PRN ×2 (12:30)
[2017-02-11 12:58] LABS: BASO % 0.2 %; BASO ABS # 0.02 K/uL (0-0.2); COMPLETE YES; EOS % 0.3 %; HEMATOCRIT 41.5 % (37-47); IG% 0.3 %; LYMPH % 24.7 %; LYMPH ABS # 2.13 K/uL (1.2-3.4); MEAN CELL VOLUME 94.1 fL (80-100); MEAN CORPUSCULAR HEMOGLOBIN 32.4 pg (25-34); MEAN CORPUSCULAR HGB CONC 34.5 g/dl (32-36); MEAN PLATELET VOLUME 10.3 fL (7.4-10.4); MONO % 6.8 %; NEUT % 67.7 %; PLATELET COUNT 224 K/uL (130-400); RED BLOOD COUNT 4.41 M/uL (4.2-5.4); WHITE BLOOD COUNT 8.63 K/uL (4.8-10.8)
[2017-02-11 13:14] LABS: BLOOD UREA NITROGEN 28 mg/dl (7-18); BUN/CREATININE RATIO 22.7 (10-20); CALCIUM 9.6 mg/dl (8.5-10.1); CARBON DIOXIDE 26 mmol/L (21-32); CHLORIDE 98 mmol/L (98-107); CREATININE 1.21 mg/dl (0.60-1.20); GLUCOSE 188 mg/dl (70-99); POTASSIUM 4.5 mmol/L (3.5-5.1); SODIUM 132 mmol/L (136-145)
--- NOTE | 2017-02-11 13:15 | DIAGNOSTIC IMAGING REPORT ---
CHEST ONE VIEW PORTABLE CLINICAL HISTORY: hip fx fall trauma. Pain. COMPARISON STUDY: 01/04/2017 FINDINGS: Mild cardiomegaly. Prior median sternotomy. Lungs are clear. Minimal pleural scarring left infrahilar region unchanged from the prior exam. Significant degenerative change right shoulder. Moderate degenerative change left shoulder. IMPRESSION: Chronic and postoperative change. No acute process. The above report was generated using voice recognition software. It may contain grammatical, syntax or spelling errors. Electronically signed by: Michael Hernandez M.D. 02/11/2017 1:14 PM Dictated Date/Time: 02/11/2017 1:13 PM
--- NOTE | 2017-02-11 13:18 | DIAGNOSTIC IMAGING REPORT ---
LEFT HIP 2 VIEWS CLINICAL HISTORY: Left hip pain. FINDINGS: AP and crosstable lateral views of the left hip are correlated with pelvic CT dated 10/20/2016. The skeletal structures are osteopenic. There is an age indeterminant avulsion fracture along the superior aspect of the greater trochanter of the left femur. This is new from the 10/20/2016 CT scan. No additional fracture is seen. The visualized left hemipelvis appears intact. There is mild arthritic change and joint space narrowing left hip. Sclerotic change is noted in the left sacroiliac joint. There is advanced atherosclerotic calcification of the left femoral artery. IMPRESSION: There is an age indeterminant avulsion fracture seen along the superior aspect of the greater trochanter. This does not appear acute, but is new from 10/20/2016. Electronically signed by: Hipolito Olson M.D. 02/11/2017 1:17 PM Dictated Date/Time: 02/11/2017 1:14 PM
[2017-02-11 13:21] LABS: INR 2.4 (0.9-1.1); PARTIAL THROMBOPLASTIN RATIO 1.5; PROTHROMBIN TIME (PATIENT) 26.3 SECONDS (9.0-12.0)
--- NOTE | 2017-02-11 13:48 | DIAGNOSTIC IMAGING REPORT ---
CT SCAN OF THE BRAIN WITHOUT IV CONTRAST CLINICAL HISTORY: Fall with head injury. COMPARISON STUDY: CT of the brain dated 01/04/2017 P are TECHNIQUE: Unenhanced axial CT scan of the brain is performed from the vertex to the skull base. CT DOSE: 537.48 mGy.cm FINDINGS: Brain parenchyma: There are age-related involutional changes noting mild subcortical and periventricular microangiopathic change. There is no hemorrhage, mass effect, or evidence of acute territorial ischemia by CT criteria. Romano-white matter is preserved. No extra-axial fluid collection is seen. Ventricles, sulci, cisterns: Prominent secondary to involutional change. Intracranial vasculature: There is atherosclerotic calcification of the cavernous carotid and vertebral arteries. Calvarium: The skeletal structures are osteopenic. No depressed calvarial fracture is seen. Sinuses and mastoids: The visualized paranasal sinuses are clear. The mastoid air cells are well pneumatized. Orbits: The bony orbits are grossly intact. There are bilateral ocular lens implants. IMPRESSION: There is no hemorrhage, mass effect, or evidence of acute territorial ischemia by CT criteria. Electronically signed by: Hipolito Olson M.D. 02/11/2017 1:47 PM Dictated Date/Time: 02/11/2017 1:45 PM
[2017-02-11 13:49] LABS: URINE APPEARANCE CLOUDY (CLEAR); URINE BILIRUBIN NEG (NEG); URINE COLOR YELLOW; URINE EPITHELIAL CELL AUTO 0-5 /lpf (0-5); URINE NITRITE POS (NEG); URINE SPECIFIC GRAVITY 1.015 (1.000-1.030); UROBILINOGEN NEG (NEG); ZZURINE CULT IF INDIC CATH YES
[2017-02-11 13:53] LABS: MANUAL MICROSCOPIC REQUIRED? NO; REVIEW REQ? NO
--- NOTE | 2017-02-11 14:06 | DIAGNOSTIC IMAGING REPORT ---
L HIP-LOWER EXTREMITY WITHOUT CT DOSE: 338.95 mGy.cm HISTORY: Trauma fall, can't walk TECHNIQUE: Multiaxial CT images of the left hip were performed and reformatted in the sagittal and coronal plane without the use of contrast. A dose lowering technique was utilized adhering to the principles of ALARA. COMPARISON: None. FINDINGS: Interval avulsion type fracture of the superior aspect of the greater trochanter left hip. Based on CT criteria this appears to be acute and slightly fragmented. The dimension of the bulk fragment is 2.6 x 2.1 cm. And shows superior displacement of approximately 1.6 cm. The left femur otherwise intact is intact. There is moderate degenerative change left hip. There is no evidence for acetabular protrusion. There are findings of mild stranding soft tissue edematous change. IMPRESSION: 1. Avulsed fracture of the superior aspect of the greater trochanter left hip. 2. The avulsed fragment measures 2.6 x 2.1 cm and shows moderate nondisplaced fragmentation. 3. The displaced fragment has superior displacement of 1.6 cm. 4. No evidence for fracture of the remainder of the left hip or acetabulum. 5. Additional superimposed degenerative change as discussed. 6. The avulsed fracture appears to be acute. The above report was generated using voice recognition software. It may contain grammatical, syntax or spelling errors. Electronically signed by: Michael Hernandez M.D. 02/11/2017 2:05 PM Dictated Date/Time: 02/11/2017 1:57 PM
[2017-02-11] MEDS ORDERED: METO50TA17 PO (14:10)
[2017-02-11] MEDS ORDERED: CZR25 PO (14:10)
[2017-02-11] MEDS ORDERED: AXIT1TAB PO (14:11)
[2017-02-11] MEDS ORDERED: CEFTRIAXONE SOD INJ 1 GM ADDVIAL IV STA (14:47)
--- NOTE | 2017-02-11 16:39 | ORTHOPEDIC CONSULTATION ---
DATE OF CONSULTATION: 02/11/2017 HISTORY OF PRESENT ILLNESS: This is a 76-year-old female who was seen at the request of emergency room physician and the patient sustained a fall at home. Apparently, she was in her usual state of health and lost her footing and fell directly onto her left hip. She had immediate pain and difficulty with ambulation. The next 2 days she was able to manage with limited weightbearing and assistance of her son and family members. Earlier today had discomfort and they decided to present to the emergency room for further management. The patient complains of left possible hip pain. She has bruising which she has noted and discomfort with transfers and bed mobility. She had no loss of consciousness. No other associated injuries. No chest pain, double vision, blurry vision or loss of consciousness. The patient is present with her son at the bedside. PAST MEDICAL HISTORY: AFib, anemia, coronary artery disease, chronic kidney disease stage III, diabetes mellitus type 2, encephalopathy, hyperlipidemia, hypertension, hyperkalemia, hypothyroidism, long-term use of anticoagulation, renal cell carcinoma right kidney, renal mass right and shortness of breath. PAST SURGICAL HISTORY: Colonoscopy, kidney surgery, partial hysterectomy, appendectomy, CABG, and cholecystectomy. ALLERGIES: SULFAMETHOXAZOLE WITH TRIMETHOPRIM, MILD NAUSEA AND VOMITING. MEDICATIONS: Please see the medication list provided in the medical record. SOCIAL HISTORY: The patient denies tobacco or alcohol use. Denies drug use. She is retired. She lives at home with her son. PHYSICAL EXAMINATION: A 76-year-old female who is lying supine in the ER room, transferred on a cart with the son present at bedside. General: She is alert and oriented x3. Speech is clear and fluent. Affect is appropriate. HEENT: She is somewhat hard of hearing. EOMI, PEERLA, neck supple, no JVD Extremities: Examination of the left lower extremity demonstrates skin which is warm, dry and intact. Cap refill less than 2 seconds. Dorsalis pedis and posterior pulses are 1+/4 bilaterally. Feet are slightly cool to touch; however, within normal limits. Cap refill is approximately 3 seconds in bilateral lower extremities. She has local ecchymosis and bruising of the left third greater trochanter of the hip. She has tenderness to palpation over the left greater trochanter. She is able to move the left hip with assist. She has limited active range of motion of the left hip due to pain and guarding. There is no clicking and popping, or catching. The hip is located within the acetabulum. No apparent shortening of the left hip compared to the right. IMAGING DATA: Radiographs and CT scans reviewed demonstrating a fracture of the greater trochanter of the left hip with mild displacement and moderate to severe comminution. The overall shape contour of the greater trochanters preserved; however, it is proximally migrated approximately 1-1.5 cm. IMPRESSION: 1. Left greater trochanteric comminuted fracture with moderate displacement. 2. Status post fall at home. RECOMMENDATIONS: Weightbearing as tolerated with a walker and assist x1. We will have to have protected weightbearing for at least 6 weeks with a walker. Follow up in clinic as an outpatient for radiographic monitoring. This is a nonoperative conservative management at this time. Pain medication as appropriate. Ice to the site for comfort. Thank you for the opportunity to consult in the care of this patient. EDNA
--- NOTE | 2017-02-11 16:49 | DIAGNOSTIC IMAGING REPORT ---
MRI OF THE BRAIN WITHOUT CONTRAST CLINICAL HISTORY: Head trauma. Equivocal subdural hematoma on prior head CT. COMPARISON STUDY: Noncontrast head CT dated 02/11/2017 FINDINGS: Sagittal T1, axial diffusion, proton density and T2 weighted axial, coronal FLAIR, and axial T1-weighted images were acquired. No intra-axial masses are visualized. Axial diffusion-weighted images reveal no evidence of acute or subacute infarction. There is no evidence of ventricular dilatation. Proton density T2-weighted and FLAIR images reveal scattered foci of increased T2 signal within the white matter, likely on a small vessel basis. There is a small right convexity subdural hematoma with a maximal thickness of 5 mm. There are no abnormal flow voids. IMPRESSION: 1. Small right convexity subdural hematoma with a maximal thickness of 5 mm. No significant midline shift. 2. No evidence of acute or subacute infarction 3. No evidence of hydrocephalus. Electronically signed by: Homer Mills M.D. 02/11/2017 4:48 PM Dictated Date/Time: 02/11/2017 4:39 PM
[2017-02-11] MEDS ORDERED: PHYTONADIONE INJ 5 MG in SODIUM CHLORIDE 0.9% 50ML 50 ML IV ONE (17:30)
[2017-02-11] MEDS ORDERED: ONDANSETRON INJ 2 MG/ML 2 ML VIAL IV PRN (18:00)
[2017-02-11] MEDS ORDERED: ACETAMINOPHEN 325 MG TAB PO PRN (18:00)
[2017-02-11] MEDS ORDERED: CMD25 PO (18:01)
[2017-02-11] MEDS ORDERED: GLUCOSE 40% GEL 15 GM TUBE PO PRN (18:15)
[2017-02-11] MEDS ORDERED: GLUCAGON FOR INJ 1 MG VIAL SQ PRN (18:15)
[2017-02-11] MEDS ORDERED: GLUCOSE 10 TABS/TUBE PO PRN (18:15)
[2017-02-11] MEDS ORDERED: DEXTROSE 50% 50 ML SYR IV PRN (18:15)
[2017-02-11] MEDS ORDERED: TRAMADOL HCL 50 MG TAB PO PRN (18:30)
--- NOTE | 2017-02-11 19:32 | History and Physical ---
History & Physical Date & Time of Service: Feb 11, 2017 ~ 17:30 Chief Complaint: Left Hip Pain Primary Care Physician: Alessia Ward D.O. History of Present Illness 76 year old female who was referred to the ED from her PCPs office where she was found to have a left trochanteric fracture. Patient suffered a fall 4 days ago. She reports that she had turned all the lights off on her house and was trying to get to bed when she fell onto her left side. She reports she did hit her head but denies loss of coconsciousness. She has had left hip since then however has been able to ambulate. She denies headache and blurred vision. She denies unilateral weakness, numbness, or tingling. No chest pain shortness of breath. she denies lightheadedness, dizziness, diaphoresis, or syncope. No abdominal pain, nausea, vomiting, or diarrhea. She denies fever and chills. No urinary symptoms. In the ED, patient had a CT of the left hip that showed avulsed fracture of the superior aspect of the greater trochanter left hip. Orthopedics evaluated the patient who recommended non operative treatment. She had a head CT that was negative however follow up brain MRI shows small right convexity subdural hematoma with a maximal thickness of 5 mm. She is on Coumadin for atrial fibrillation with INR 2.4. U/A suggests UTI. She was given Rocephin. 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 03/2016 Status: Chronic (3) History of partial hysterectomy Status: Chronic (4) Hx of appendectomy Status: Chronic (5) Hx of CABG Status: Chronic (6) S/P cholecystectomy Status: Chronic Family History FH gastric disorder - mother had gastric surgery MOTHER FH: COPD (chronic obstructive pulmonary disease) FATHER FH: heart disease FATHER Social History Smoking Status: Never Smoker Alcohol Use: none Housing status: lives with family Immunizations History of Influenza Vaccine: Yes Influenza Vaccine Date: Dec 27, 2016 History of Tetanus Vaccine?: Yes Tetanus Immunization Date: Sep 28, 2012 History of Pneumococcal: Yes Pneumococcal Date: Mar 08, 2014 Allergies Coded Allergies: Sulfamethoxazole w/Trimethoprim (Verified Adverse Reaction, Mild, N/V, ) Home Medications Scheduled Atorvastatin (Lipitor), 40 MG PO HS Axitinib (Inlyta), 2 MG PO BID Levothyroxine Sodium (Synthroid), 100 MCG PO QAM Losartan Potassium (Losartan Potassium), 25 MG PO DAILY Metformin Hcl (Glucophage), 500 MG PO BID Metoprolol Tartrate (Metoprolol Tartrate), 50 MG PO BID Warfarin Sod (Coumadin), 1 TAB PO [id number] Review of Systems ROS per HPI, all other systems reviewed and negative Physical Exam Vital Signs Date Time Temp Pulse Resp B/P (MAP) Pulse Ox O2 Delivery O2 Flow Rate FiO2 02/11/17 18:51 97 20 169/92 97 Room Air 02/11/17 17:45 91 177/103 100 Room Air 02/11/17 15:10 83 20 166/92 100 Room Air 02/11/17 15:10 87 20 166/92 97 Room Air 02/11/17 13:18 79 18 161/76 95 Room Air 02/11/17 12:37 83 02/11/17 12:08 36.3 95 16 142/77 97 Room Air General Appearance: WD/WN, no apparent distress Head: normocephalic, atraumatic Eyes: normal inspection, PERRL, EOMI, sclerae normal ENT: hearing grossly normal, + pertinent finding (mucous membranes moist) Neck: supple, no JVD, trachea midline Respiratory/Chest: lungs clear, normal breath sounds, no respiratory distress Cardiovascular: regular rate, rhythm, no edema, normal peripheral pulses Abdomen/GI: normal bowel sounds, non tender, soft, no organomegaly Extremities/Musculoskelatal: no calf tenderness, normal capillary refill, + pertinent finding (pain with palpation over left hip ) Neurologic/Psych: no motor/sensory deficits, alert, + disoriented (to time) Skin: normal color, warm/dry Diagnostics Laboratory Results Results Past 24 Hours Test 02/11/17 12:35 02/11/17 13:25 Range/Units White Blood Count 8.63 4.8-10.8 K/uL Red Blood Count 4.41 4.2-5.4 M/uL Hemoglobin 14.3 12.0-16.0 g/dL Hematocrit 41.5 37-47 % Mean Corpuscular Volume 94.1 80-100 fL Mean Corpuscular Hemoglobin 32.4 25-34 pg Mean Corpuscular Hemoglobin Concent 34.5 32-36 g/dl Platelet Count 224 130-400 K/uL Mean Platelet Volume 10.3 7.4-10.4 fL Neutrophils (%) (Auto) 67.7 % Lymphocytes (%) (Auto) 24.7 % Monocytes (%) (Auto) 6.8 % Eosinophils (%) (Auto) 0.3 % Basophils (%) (Auto) 0.2 % Neutrophils # (Auto) 5.83 1.4-6.5 K/uL Lymphocytes # (Auto) 2.13 1.2-3.4 K/uL Monocytes # (Auto) 0.59 0.11-0.59 K/uL Eosinophils # (Auto) 0.03 0-0.5 K/uL Basophils # (Auto) 0.02 0-0.2 K/uL RDW Standard Deviation 49.0 36.4-46.3 fL RDW Coefficient of Variation 14.5 11.5-14.5 % Immature Granulocyte % (Auto) 0.3 % Immature Granulocyte # (Auto) 0.03 0.00-0.02 K/uL Prothrombin Time 26.3 9.0-12.0 SECONDS Prothromb Time International Ratio 2.4 0.9-1.1 Activated Partial Thromboplast Time 37.7 21.0-31.0 SECONDS Partial Thromboplastin Ratio 1.5 Sodium Level 132 136-145 mmol/L Potassium Level 4.5 3.5-5.1 mmol/L Chloride Level 98 98-107 mmol/L Carbon Dioxide Level 26 21-32 mmol/L Anion Gap 8.0 3-11 mmol/L Blood Urea Nitrogen 28 7-18 mg/dl Creatinine 1.21 0.60-1.20 mg/dl Estimated GFR () 50.3 Estimated GFR (Non- 43.4 BUN/Creatinine Ratio 22.7 10-20 Random Glucose 188 70-99 mg/dl Calcium Level 9.6 8.5-10.1 mg/dl Urine Color YELLOW Urine Appearance CLOUDY CLEAR Urine pH 5.0 4.5-7.5 Urine Specific Ridge 1.015 1.000-1.030 Urine Protein NEG NEG Urine Glucose (UA) NEG NEG Urine Ketones NEG NEG Urine Occult Blood NEG NEG Urine Nitrite POS NEG Urine Bilirubin NEG NEG Urine Urobilinogen NEG NEG Urine Leukocyte Esterase MODERATE NEG Urine WBC (Auto) >30 0-5 /hpf Urine RBC (Auto) 0-4 0-4 /hpf Urine Hyaline Casts (Auto) 1-5 0-5 /lpf Urine Epithelial Cells (Auto) 0-5 0-5 /lpf Urine Bacteria (Auto) 4+ NEG Microbiology Results 02/11/17 Urine Culture, Received Pending Diagnostic Radiology CXR IMPRESSION: Chronic and postoperative change. No acute process. HEAD CT IMPRESSION: There is no hemorrhage, mass effect, or evidence of acute territorial ischemia by CT criteria. HIP XR IMPRESSION: There is an age indeterminant avulsion fracture seen along the superior aspect of the greater trochanter. This does not appear acute, but is new from 10/20/2016. HIP CT IMPRESSION: 1. Avulsed fracture of the superior aspect of the greater trochanter left hip. 2. The avulsed fragment measures 2.6 x 2.1 cm and shows moderate nondisplaced fragmentation. 3. The displaced fragment has superior displacement of 1.6 cm. 4. No evidence for fracture of the remainder of the left hip or acetabulum. 5. Additional superimposed degenerative change as discussed. 6. The avulsed fracture appears to be acute. BRAIN MRI IMPRESSION: 1. Small right convexity subdural hematoma with a maximal thickness of 5 mm. No significant midline shift. 2. No evidence of acute or subacute infarction 3. No evidence of hydrocephalus. Impression Assessment and Plan TRAUMATIC SUBDURAL HEMATOMA - admit to tele - patient presenting by referral of her PCP where she was seen for left hip pain and was found to have an acute fracture - patient suffered a fall 4 days ago; seems to be mechanical - head CT was obtained in the ED due to fall and patient being anticoagulated on Coumadin; head CT was negative however brain MRI showed a small subdural hematoma - case was discussed with package checker and radiology by Dr. Purdy - bleed appears to be subacute and patient is currently asymptomatic; no need for transfer at this time - will reverse Coumadin, follow up head CT tomorrow - neuro checks - neuro consult LEFT TROCHANTERIC HIP FRACTURE - evaluated by Dr. Vergara in the ED - non operative management for now - pain control, PT/OT as per ortho recommendations POSSIBLE UTI - was found to have UTI during recent admission - urine culture grew E. Coli - resistant to quinolones, ampicillin, and Bactrim - s/p Rocephin in the ED, will continue with - adjust per culture results - no signs of sepsis - consider UTI as possible cause of fall ATRIAL FIBRILLATION - rate controlled on beta barbara, will continue - on Coumadin, being reversed as above RENAL CELL CARCINOMA - follows with Dr. Pranav Cadena - on Axitinib, will continue DM - hgb a1c 6.7 12/2016 - hold metformin and utilize SSI while hospitalized - sulfonylurea recently d/c'd by PCP CKD STAGE III - baseline creat runs in the low 1's - creat noted to be 1.2 today - continue to monitor, avoid nephrotoxic agents when able CHRONIC DIASTOLIC CHF - appears euvolemic - not on routine diuretics CAD - stable, no reports of chest pain - continue beta barbara and statin DVT PROPHYLAXIS - SCDs due to subdural hematoma CODE STATUS - Patient is a full code as per my discussion with her. DISPO - In my clinical judgment this beneficiary meets acute admission criteria, established by [facility], that includes being hospitalized through two midnights. - PT/OT, case management consults - currently lives at home with son, may need short term placement post hospitalization VTE Prophylaxis VTE Risk Assessment Done? Y/N: Yes Risk Level: Moderate Given or contraindicated: SCD's Note ATTENDING ADDENDUM Record reviewed. Patient interviewed and examined. Care coordinated with BABITA Knapp. Please refer to her documentation for patient's history. Briefly, 76 YO female on warfarin for AF. Fell at home 4 days ago and injured her left hip. Increasing pain over the last few days. Seen in clinic where x-rays revealed left hip fracture. Referred to ED for evaluation. CT head performed because of possible closed head injury due to fall; no definite bleed. MRI brain demonstrated right 5 mm subdural hematoma that appeared to be subacute. Patient denies headache or focal neuro symptoms. EXAM: General- no distress VS- as noted HEENT- atraumatic Lungs- clear Heart- RRR Abdomen- + BS, soft, nontender Extremities- no pretibial edema or calf tenderness; left pain with movement Neuro- alert, oriented x 2 (could not state year); PERRL, EOMI; no facial palsy ; no dysarthria; motor 5/5 bilat; plantar reflexes downgoing DATA: Lab studies as noted. CT - no apparent bleed or acute infarct MRI- 5 mm right subdural hematoma ASSESSMENT AND PLAN: Left hip fracture. Seen by Ortho. No need for operative intervention. Weightbearing as tolerating with walker and assistance. Consult PT. Right 5 mm subdural hematoma after fall 4 days prior to admission. On warfarin with INR of 2.4. Neuro status stable; no need for neurosurgical intervention. Vitamin K ordered to reverse warfarin. Neuro checks. Check f/u CT in 24 hours or STAT if any change of mental status. Please refer to ABHISHEK Jamison's documentation for discussion of other issues. Esteban Purdy MD .
[2017-02-11 20:00] VITALS: BP 188/89; PULSE 94; TEMP 36.6; O2SAT 98; Ht 157.5 cm; Wt 54.5 kg
--- NOTE | 2017-02-11 20:11 | EMERGENCY ROOM VISIT NOTE ---
History Report prepared by Brittani: Maile Prado Under the Supervision of: Dr. Esteban Bermudez M.D. First contact with patient: 12:28 Chief Complaint: HIP PAIN Stated Complaint: CRACK HIP History of Present Illness The patient is a 76 year old female who presents to the Emergency Room with complaints of an episode of fall occurring 3 days ago. The patient went to [facility] today to get X-rays done and they referred her to the ED for further evaluation. The patient tripped 3 days ago and fell on her left hip. The patient notes pain in her left hip and a difficult time walking. She is able to put weight on her left leg. She denies hitting her head during on her fall. She reports a bruise on her back. Per son, the patient has been acting normally since her fall. The patient saw Dr. [facility] a few years ago for an arm injury. The patient takes Warfarin for atrial fibrillation and has a history of diabetes. Pt denies LOC, headache, fevers, chills, diaphoresis , visual changes, neck pain, chest pain, breathing difficulties, nausea, vomiting, abdominal pain, back pain, melena, hematochezia, urinary symptoms, numbness, weakness, lymphadenopathy, rash, or other complaints. Source of History: patient Onset: 3 days ago Position: other (generalized) Quality: other (fall) Timing: other (episode) Modifying Factors (Worsening): other (walking) Note: Pt notes left hip pain Review of Systems See HPI for pertinent positives and negatives. A total of ten systems were reviewed and were otherwise negative. 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 (9) Renal cell carcinoma of right kidney Surgical Problems: (1) H/O colonoscopy (2) History of kidney surgery (3) History of partial hysterectomy (4) Hx of appendectomy (5) Hx of CABG (6) S/P cholecystectomy Family History FH gastric disorder - mother had gastric surgery MOTHER FH: COPD (chronic obstructive pulmonary disease) FATHER FH: heart disease FATHER Social History Smoking Status: Never Smoker Drug Use: none Marital Status: Occupation Status: retired Current/Historical Medications Scheduled Atorvastatin (Lipitor), 40 MG PO HS Axitinib (Inlyta), 2 MG PO BID Levothyroxine Sodium (Synthroid), 100 MCG PO QAM Losartan Potassium (Losartan Potassium), 25 MG PO DAILY Metformin Hcl (Glucophage), 500 MG PO BID Metoprolol Tartrate (Metoprolol Tartrate), 50 MG PO BID Warfarin Sod (Coumadin), 1 TAB PO 6XWK Allergies Coded Allergies: Sulfamethoxazole w/Trimethoprim (Verified Adverse Reaction, Mild, N/V, ) Physical Exam Vital Signs Date Time Temp Pulse Resp B/P (MAP) Pulse Ox O2 Delivery O2 Flow Rate FiO2 02/11/17 17:45 91 177/103 100 Room Air 02/11/17 15:10 83 20 166/92 100 Room Air 02/11/17 15:10 87 20 166/92 97 Room Air 02/11/17 13:18 79 18 161/76 95 Room Air 02/11/17 12:37 83 02/11/17 12:08 36.3 95 16 142/77 97 Room Air Physical Exam GENERAL: Awake, alert, well-appearing, in no distress HENT: Normocephalic, atraumatic. Oropharynx unremarkable. EYES: Normal conjunctiva. Sclera non-icteric. NECK: Supple. No nuchal rigidity. FROM. No JVD. RESPIRATORY: Clear to auscultation. CARDIAC: Regular rate, normal rhythm. Extremities warm and well perfused. Pulses equal. ABDOMEN: Soft, non-distended. No tenderness to palpation. No rebound or guarding. No masses. RECTAL: Deferred. MUSCULOSKELETAL: Left hip tenderness to palpation, no shortening of left leg. Chest examination reveals no tenderness. The back is symmetrical on inspection without obvious abnormality. There is no CVA tenderness to palpation. No joint edema. LOWER EXTREMITIES: Calves are equal size bilaterally and non-tender. No edema. No discoloration. NEURO: Normal sensorium. No sensory or motor deficits noted. SKIN: No rash or jaundice noted. Medical Decision & Procedures ER Provider Diagnostic Interpretation: X-Ray report from [facility]: Evulsion fracture of the left greater trochanter. Radiology results as stated below per my review and radiologist interpretation: LEFT HIP 2 VIEWS FINDINGS: AP and crosstable lateral views of the left hip are correlated with pelvic CT dated 10/20/2016. The skeletal structures are osteopenic. There is an age indeterminant avulsion fracture along the superior aspect of the greater trochanter of the left femur. This is new from the 10/20/2016 CT scan. No additional fracture is seen. The visualized left hemipelvis appears intact. There is mild arthritic change and joint space narrowing left hip. Sclerotic change is noted in the left sacroiliac joint. There is advanced atherosclerotic calcification of the left femoral artery. IMPRESSION: There is an age indeterminant avulsion fracture seen along the superior aspect of the greater trochanter. This does not appear acute, but is new from 10/20/2016. Electronically signed by: Hipolito Olson M.D. CHEST ONE VIEW PORTABLE FINDINGS: Mild cardiomegaly. Prior median sternotomy. Lungs are clear. Minimal pleural scarring left infrahilar region unchanged from the prior exam. Significant degenerative change right shoulder. Moderate degenerative change left shoulder. IMPRESSION: Chronic and postoperative change. No acute process. The above report was generated using voice recognition software. It may contain grammatical, syntax or spelling errors. Electronically signed by: Michael Hernandez M.D. L HIP-LOWER EXTREMITY WITHOUT FINDINGS: Interval avulsion type fracture of the superior aspect of the greater trochanter left hip. Based on CT criteria this appears to be acute and slightly fragmented. The dimension of the bulk fragment is 2.6 x 2.1 cm. And shows superior displacement of approximately 1.6 cm. The left femur otherwise intact is intact. There is moderate degenerative change left hip. There is no evidence for acetabular protrusion. There are findings of mild stranding soft tissue edematous change. IMPRESSION: 1. Avulsed fracture of the superior aspect of the greater trochanter left hip. 2. The avulsed fragment measures 2.6 x 2.1 cm and shows moderate nondisplaced fragmentation. 3. The displaced fragment has superior displacement of 1.6 cm. 4. No evidence for fracture of the remainder of the left hip or acetabulum. 5. Additional superimposed degenerative change as discussed. 6. The avulsed fracture appears to be acute. The above report was generated using voice recognition software. It may contain grammatical, syntax or spelling errors. Electronically signed by: Michael Hernandez M.D. CT SCAN OF THE BRAIN WITHOUT IV CONTRAST FINDINGS: Brain parenchyma: There are age-related involutional changes noting mild subcortical and periventricular microangiopathic change. There is no hemorrhage, mass effect, or evidence of acute territorial ischemia by CT criteria. Romano-white matter is preserved. No extra-axial fluid collection is seen. Ventricles, sulci, cisterns: Prominent secondary to involutional change. Intracranial vasculature: There is atherosclerotic calcification of the cavernous carotid and vertebral arteries. Calvarium: The skeletal structures are osteopenic. No depressed calvarial fracture is seen. Sinuses and mastoids: The visualized paranasal sinuses are clear. The mastoid air cells are well pneumatized. Orbits: The bony orbits are grossly intact. There are bilateral ocular lens implants. IMPRESSION: There is no hemorrhage, mass effect, or evidence of acute territorial ischemia by CT criteria. Electronically signed by: Hipolito Olson M.D. MRI OF THE BRAIN WITHOUT CONTRAST FINDINGS: Sagittal T1, axial diffusion, proton density and T2 weighted axial, coronal FLAIR, and axial T1-weighted images were acquired. No intra-axial masses are visualized. Axial diffusion-weighted images reveal no evidence of acute or subacute infarction. There is no evidence of ventricular dilatation. Proton density T2-weighted and FLAIR images reveal scattered foci of increased T2 signal within the white matter, likely on a small vessel basis. There is a small right convexity subdural hematoma with a maximal thickness of 5 mm. There are no abnormal flow voids. IMPRESSION: 1. Small right convexity subdural hematoma with a maximal thickness of 5 mm. No significant midline shift. 2. No evidence of acute or subacute infarction 3. No evidence of hydrocephalus. Electronically signed by: Homer Mills M.D. Laboratory Results 02/11/17 12:35 Red Blood Count 4.41, Mean Corpuscular Volume 94.1, Mean Corpuscular Hemoglobin 32.4, Mean Corpuscular Hemoglobin Concent 34.5, Mean Platelet Volume 10.3, Neutrophils (%) (Auto) 67.7, Lymphocytes (%) (Auto) 24.7, Monocytes (%) (Auto) 6.8, Eosinophils (%) (Auto) 0.3, Basophils (%) (Auto) 0.2, Neutrophils # (Auto) 5.83, Lymphocytes # (Auto) 2.13, Monocytes # (Auto) 0.59, Eosinophils # (Auto) 0.03, Basophils # (Auto) 0.02 02/11/17 12:35 Test 02/11/17 12:35 02/11/17 13:25 White Blood Count 8.63 K/uL (4.8-10.8) Red Blood Count 4.41 M/uL (4.2-5.4) Hemoglobin 14.3 g/dL (12.0-16.0) Hematocrit 41.5 % (37-47) Mean Corpuscular Volume 94.1 fL (80-100) Mean Corpuscular Hemoglobin 32.4 pg (25-34) Mean Corpuscular Hemoglobin Concent 34.5 g/dl (32-36) Platelet Count 224 K/uL (130-400) Mean Platelet Volume 10.3 fL (7.4-10.4) Neutrophils (%) (Auto) 67.7 % Lymphocytes (%) (Auto) 24.7 % Monocytes (%) (Auto) 6.8 % Eosinophils (%) (Auto) 0.3 % Basophils (%) (Auto) 0.2 % Neutrophils # (Auto) 5.83 K/uL (1.4-6.5) Lymphocytes # (Auto) 2.13 K/uL (1.2-3.4) Monocytes # (Auto) 0.59 K/uL (0.11-0.59) Eosinophils # (Auto) 0.03 K/uL (0-0.5) Basophils # (Auto) 0.02 K/uL (0-0.2) RDW Standard Deviation 49.0 fL (36.4-46.3) RDW Coefficient of Variation 14.5 % (11.5-14.5) Immature Granulocyte % (Auto) 0.3 % Immature Granulocyte # (Auto) 0.03 K/uL (0.00-0.02) Prothrombin Time 26.3 SECONDS (9.0-12.0) Prothromb Time International Ratio 2.4 (0.9-1.1) Activated Partial Thromboplast Time 37.7 SECONDS (21.0-31.0) Partial Thromboplastin Ratio 1.5 Anion Gap 8.0 mmol/L (3-11) Estimated GFR () 50.3 Estimated GFR (Non- 43.4 BUN/Creatinine Ratio 22.7 (10-20) Calcium Level 9.6 mg/dl (8.5-10.1) Urine Color YELLOW Urine Appearance CLOUDY (CLEAR) Urine pH 5.0 (4.5-7.5) Urine Specific [place] 1.015 (1.000-1.030) Urine Protein NEG (NEG) Urine Glucose (UA) NEG (NEG) Urine Ketones NEG (NEG) Urine Occult Blood NEG (NEG) Urine Nitrite POS (NEG) Urine Bilirubin NEG (NEG) Urine Urobilinogen NEG (NEG) Urine Leukocyte Esterase MODERATE (NEG) Urine WBC (Auto) >30 /hpf (0-5) Urine RBC (Auto) 0-4 /hpf (0-4) Urine Hyaline Casts (Auto) 1-5 /lpf (0-5) Urine Epithelial Cells (Auto) 0-5 /lpf (0-5) Urine Bacteria (Auto) 4+ (NEG) Laboratory results reviewed by me Medications Administered Medications (Trade) Dose Ordered Sig/Hubert Route Start Time Stop Time Status Last Admin Dose Admin Hydromorphone HCl (Dilaudid Inj) 0.25 mg Q20M PRN IV 02/11/17 12:30 02/25/17 12:29 02/11/17 13:15 0.25 MG Ceftriaxone Sodium (Rocephin Inj) 1 gm NOW STAT IV 02/11/17 14:47 02/11/17 14:49 DC 02/11/17 15:06 1 GM Phytonadione 5 mg/ Sodium Chloride 50.5 ml @ 101 mls/hr NOW ONCE IV 02/11/17 17:30 02/11/17 17:59 DC 02/11/17 17:48 101 MLS/HR ECG Indication: other (possible fracture) Rate (beats per minute): 78 Rhythm: atrial fibrillation Findings: T-wave inversion (Inferior and laterally), no ectopy ED Course 1228: Ordered Sodium Chloride 1000 ml @ 75 mls/hr IV. 1230: Ordered Dilaudid Inj 0.5 mg IV, Dilaudid Inj 0.25 mg IV. 1236: The patient was evaluated in room C7. A complete history and physical exam was performed. 1446: Discussed the patient's case with Dr. Mills-Radiology. He looked at the patient's CT and states there is no acute blood but to order MRI for further clarification. 1447: Ordered Rocephin Inj 1 gm IV. 1457: I updated the patient on her test results she is feeling better. 1515: Discussed the patient's case with Dr. Vergara-[facility]. He states the patient is nonoperative management and he will follow up with the patient. 1657: I updated the patient on her MRI results. 1658: Discussed the patient's case with Lisa JC. The patient will be evaluated for further treatment and disposition. Medical Decision Triage Nursing notes reviewed. The patient's presentation and history were concerning for a fall and hip pain also being on anticoagulation. Etiologies such as soft tissue injury, fracture, dislocation, neurovascular compromise, metabolic, intracranial injury, as well as others were entertained. The patient was evaluated. Clinically she was doing well. Her outpatient x- rays were reviewed by report and was she she was found to have a greater trochanter fracture on the left side. She was having difficulty bearing weight. X-rays were repeated here. The x-ray appearance does not appear all that impressive and therefore CT imaging was ordered to further delineate the injury and rule out occult hip fracture that would require surgery. This was done. The patient also had a head CT performed. After reviewing the head CT there was some concerns about a possible right frontal subdural, subacute. I discussed the case with Dr. Rodrigez with radiology. MRI was recommended. The patient underwent MR imaging. She was also treated with IV Rocephin for possible UTI. The patient was found to have a therapeutic INR. She was found to have a subacute subdural hematoma on MR imaging. This happened 4 days ago. She is wide awake and has no headache. She actually denied any head injury. I discussed the case with the [facility] hospitalist service as well as with [facility]. Her orthopedic injuries nonoperative. The patient was evaluated by internal medicine. He was felt that reversal was prudent given the issues and internal medicine did write for her to receive vitamin K. The patient was reassessed and was informed. She did require some IV Dilaudid for symptom control. She was gently hydrated. Blood Pressure Screening Patient's blood pressure: Elevated blood pressure Blood pressure disposition: Referred to PCP (evaluated by hospitalist) Consults Time Called: 1442 Consulting Physician: Dr. Mills-Radiology Returned Call: [phone] Discussed the patient's case. He looked at the patient's CT and states there is no acute blood but to order MRI for further clarification. Additional Consults: Time Called: 1509 [facility] Returned Call: [phone] Additional Comments: [facility] the [facility] He states the patient is nonoperative management and he will follow up with the patient. Time Called: 1645 Consulted Physician: Lisa JC Returned Call: [phone] Additional Comments: Discussed the patient's case. The patient will be evaluated for further treatment and disposition. Impression Primary Impression: Greater trochanter fracture Additional Impressions: UTI (urinary tract infection) Subdural hematoma Scribe Attestation The scribe's documentation has been prepared under my direction and personally reviewed by me in its entirety. I confirm that the note above accurately reflects all work, treatment, procedures, and medical decision making performed by me. Departure Information Dispostion Being Evaluated By Hospitalist Prescriptions Warfarin Sod (Coumadin) 2.5 Mg Tab 1 TAB PO 6XWK for 30 Days, #30 TABS 3 Refills everday except Tuesday Prov: Lisa Jamison CRNP 02/11/17 Referrals Alessia Ward D.O. (PCP) Patient Instructions My [facility] Problem Qualifiers
[2017-02-11] MEDS: INSULIN ASPART 100 UNITS/ML 3 ML PEN SC SCH (20:32)
[2017-02-11] MEDS: ATORVASTATIN 40 MG TAB PO SCH (20:51)
[2017-02-11] MEDS: METOPROLOL TARTRATE 50 MG TAB PO SCH (20:51)
[2017-02-11] MEDS: TRAMADOL HCL 50 MG TAB PO PRN (20:54)
[2017-02-11] MEDS: ACETAMINOPHEN 500 MG TAB PO SCH (21:47)
[2017-02-11 23:20] LABS: INR 1.6 (0.9-1.1); PROTHROMBIN TIME (PATIENT) 17.4 SECONDS (9.0-12.0)
[2017-02-11] MEDS ORDERED: PHYTONADIONE 5 MG TAB PO STA (23:50)
[2017-02-12] VITALS (10 sets, daily range): BP systolic 143–174; BP diastolic 78–89; PULSE 75–93; TEMP 36.4–36.9; O2SAT 95–98
[2017-02-12] MEDS ORDERED: AMLODIPINE BESYLATE 5 MG TAB PO ONE (01:30)
[2017-02-12] MEDS: LEVOTHYROXINE 100 MCG TAB PO SCH (06:06)
[2017-02-12] MEDS: ACETAMINOPHEN 500 MG TAB PO SCH ×3 (06:07→20:55)
[2017-02-12 06:38] LABS: HEMATOCRIT 39.3 % (37-47); MEAN CELL VOLUME 94.2 fL (80-100); MEAN CORPUSCULAR HEMOGLOBIN 31.9 pg (25-34); MEAN CORPUSCULAR HGB CONC 33.8 g/dl (32-36); PLATELET COUNT 207 K/uL (130-400); RED BLOOD COUNT 4.17 M/uL (4.2-5.4); WHITE BLOOD COUNT 7.36 K/uL (4.8-10.8)
[2017-02-12 06:44] LABS: INR 1.3 (0.9-1.1); PROTHROMBIN TIME (PATIENT) 14.2 SECONDS (9.0-12.0)
[2017-02-12] MEDS: INSULIN ASPART 100 UNITS/ML 3 ML PEN SC SCH ×4 (07:00→20:46)
[2017-02-12 07:18] LABS: BUN/CREATININE RATIO 24.8 (10-20); CALCIUM 9.4 mg/dl (8.5-10.1); CREATININE 0.9 mg/dl (0.60-1.20); POTASSIUM 4.4 mmol/L (3.5-5.1)
[2017-02-12] MEDS: LOSARTAN POTASSIUM 25 MG TAB PO SCH (07:44)
[2017-02-12] MEDS: METOPROLOL TARTRATE 50 MG TAB PO SCH ×2 (07:44→20:51)
--- NOTE | 2017-02-12 10:37 | Orthopedic Progress Note ---
Orthopedic Progress Note Date of Service Feb 12, 2017. Subjective Reports: feeling well, complaints (Left hip pain with ambulation and palpation.) , Denies: chest pain, SOB, nausea / vomiting, light headedness, calf pain Objective calves soft nontender, N/V intact, hip located, capillary refill less than 2 sec., A&O x3, toes mobile Left hip ecchymosis. + Tender to palpation Left greater trochanter. Limited active motion left hip due to pain/guarding. DNVSI, Cap refill brisk B LE. Good bed mobility with some discomfort. Date Time Temp Pulse Resp B/P (MAP) Pulse Ox O2 Delivery O2 Flow Rate FiO2 02/12/17 08:01 97 Room Air 02/12/17 07:09 36.5 78 18 155/80 (105) 97 Room Air 02/12/17 04:34 36.4 75 17 154/82 (106) 98 Room Air 02/12/17 04:15 Room Air 02/12/17 00:14 Room Air 02/12/17 00:12 36.9 80 17 174/89 (117) 98 Room Air 02/11/17 20:00 36.6 94 16 188/89 98 Room Air 02/11/17 18:51 97 20 169/92 97 Room Air 02/11/17 17:45 91 177/103 100 Room Air 02/11/17 15:10 83 20 166/92 100 Room Air 02/11/17 15:10 87 20 166/92 97 Room Air 02/11/17 13:18 79 18 161/76 95 Room Air 02/11/17 12:37 83 02/11/17 12:08 36.3 95 16 142/77 97 Room Air Laboratory Results 24 Hours: Test 02/11/17 12:35 02/11/17 22:53 02/12/17 06:08 White Blood Count 8.63 K/uL Red Blood Count 4.41 M/uL Hemoglobin 14.3 g/dL 13.3 g/dL Hematocrit 41.5 % 39.3 % Mean Corpuscular Volume 94.1 fL Mean Corpuscular Hemoglobin 32.4 pg Mean Corpuscular Hemoglobin Concent 34.5 g/dl Platelet Count 224 K/uL Mean Platelet Volume 10.3 fL Neutrophils (%) (Auto) 67.7 % Lymphocytes (%) (Auto) 24.7 % Monocytes (%) (Auto) 6.8 % Eosinophils (%) (Auto) 0.3 % Basophils (%) (Auto) 0.2 % Neutrophils # (Auto) 5.83 K/uL Lymphocytes # (Auto) 2.13 K/uL Monocytes # (Auto) 0.59 K/uL Eosinophils # (Auto) 0.03 K/uL Basophils # (Auto) 0.02 K/uL Prothromb Time International Ratio 2.4 1.6 1.3 Prothrombin Time 26.3 SECONDS 17.4 SECONDS 14.2 SECONDS Assessment & Plan Assessment: Moderately displaced, comminuted, proximal greater trochanteric fracture. Nonoperative management Local ecchymosis and pain left hip and greater trochanter Left hip contusion Plan: Nonoperative treatment WBAT with walker and assist Ice to affected area. F/U with Dr Vergara in clinic as an outpatient for Xray in 2-3 weeks Thank you for the consultation Michaela Vergara DO
--- NOTE | 2017-02-12 11:39 | DIAGNOSTIC IMAGING REPORT ---
CT OF THE HEAD WITHOUT CONTRAST CLINICAL HISTORY: Follow up subdural hematoma. COMPARISON STUDY: Head CT and MRI of the brain February 11, 2017. CT DOSE: 537.48 mGy.cm TECHNIQUE: Helical axial images of the head were obtained without IV contrast. Automated exposure control was utilized for the study. A dose lowering technique was utilized adhering to the principles of ALARA. FINDINGS: A small subdural hematoma overlying the right frontal lobe is unchanged since MRI of February 11, 2017. This is intermediate attenuation. No additional sites of intracranial hemorrhage are present. Ventricular system is stable. Basilar cisterns are patent. White matter hypodensity suggests small vessel disease. There is no calvarial fracture. IMPRESSION: No change in a small subdural hematoma overlying the right frontal lobe since MRI of February 11, 2017. This hematoma is intermediate attenuation and therefore may be subacute. Electronically signed by: Robert Seymour M.D. 02/12/2017 11:37 AM Dictated Date/Time: 02/12/2017 11:33 AM
--- NOTE | 2017-02-12 12:46 | CONSULTATION REPORT ---
DATE OF CONSULTATION: 02/12/2017 FOR: Dr. Purdy. LOCATION: Room #233. HISTORY OF PRESENT ILLNESS: Christen is 76 years old and is apparently a patient of Dr. Alessia Ward, and was actually admitted from Dr. Ward's office after she was found to have a left trochanteric hip fracture. Apparently, 5 days ago, the patient fell, struck her hip, denied that she had any head injury and reportedly stated that the lights were off in her house and she was trying to get to bed when she fell and struck her left side. There was no loss of consciousness. She has, however, had hip pain ever since and has had difficulty ambulating. There have been no headaches, double vision, numbness, tingling, involuntary motor activity, alteration in consciousness, etc. She was brought to the ER, the CT scan of the left hip showed an avulsed fracture of the superior aspect of the greater trochanter and no operative intervention is felt to be necessary at this point. She had a head CT that showed a small right convexity subdural hematoma with a maximal thickness of 5 mm. I have looked at the initial CT scan, the one that was just done this morning and agree that everything is stable. In fact, the head CT on admission, I think showed a somewhat larger subdural and the one has just been done, the difference is minimal. 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 PAST MEDICAL HISTORY: She does have chronic atrial fibrillation on Coumadin and has coronary artery disease, chronic stage III renal disease, type 2 diabetes, hyperlipidemia, hypertension, hypothyroidism and has been on Coumadin for quite some time and also has a history of a renal cell carcinoma of the right kidney. PAST SURGICAL HISTORY: Surgically, she had a kidney surgery. She has had colonoscopies without incident. She has had a partial hysterectomy and appendectomy, coronary artery bypass grafting and a cholecystectomy. FAMILY HISTORY: Positive for gastric surgery in her mother, COPD in her father. She has never been a smoker. She does not consume ethanol. She is , lives apparently with a son and or a grandson on their [place] in the [facility]. IMMUNIZATIONS: Up-to-date. ALLERGIES: SHE HAS ALLERGIES REPORTED TO [facility]. HOME MEDICATIONS: Include atorvastatin, Inlyta, levothyroxine, losartan, metformin, metoprolol and warfarin per the Coumadin clinic. REVIEW OF SYSTEMS: Systems review is difficult to obtain from the patient today. She denies most ills. She really denies any problems referable of head, eyes, ears, nose and throat. Denies vehemently hitting her head. She is denying any memory deficits, but clearly is really unreliable as a historian or at least is evasive and vague. She denies any cardiovascular, pulmonary, gastrointestinal, genitourinary, or musculoskeletal complaints, but then again is either unaware or not very forthcoming about her medical problems and simply states that she leaves this up to the doctors. She really cannot name her physician. She recalls seeing a physician in [place] in the remote past, seems to recognize [facility] is a facility where she sees her current physician but beyond this is a very vague historian. Physical examination: VITAL SIGNS: Last night in the Emergency Room revealed a blood pressure of 169/92, pulse of 97, respirations were 20. GENERAL: She was a thin, well-developed woman who appeared her stated age. She was pleasantly confused, but did not appear to be in any distress. HEENT: Examination was normal. LUNGS: She had clear lungs. CARDIOVASCULAR: She had a regular rate and rhythm on examination of the heart and I agree today I do not palpate any significant irregularities. ABDOMEN: Soft, nontender. EXTREMITIES: Free of edema and had good peripheral pulses. NEUROLOGIC: Today, her mental status is altered. I would estimate on mini mental status score she be into the mildly demented range, but she is not clearly oriented to time, knows she is in the hospital, knows she lives in [place], cannot name her physician, is a little vague about who she is living with. She knows her has , but could not tell me when. I really did not push her to recall 3 unrelated terms as she was getting a little irritable with me. She has no abnormal involuntary movements. There is no tremulousness. There is no cerebellar dysmetria. Eye movements are normal. There is no gross visual field cuts. Facial motility and strength is normal. Sensation is intact. Tongue protrudes in the midline. Speech is clear. There are no aphasic tendencies. Reflexes are present but are hypoactive in the upper extremities and probably absent at the ankles, although the cooperation level is a little limited. Toes are downgoing. No Estuardo signs are seen. Sensation is difficult because of her evasiveness, but I think she does not feel vibration not well over the distal lower extremities. This would not be surprising in light of her diabetes. IMPRESSION AND PLAN: Nichole is a samll acute subdural whose size is stable over the past 12 hours in a patient with a probable vascular dementia and a history of nonvalvular atrial fib on coumadin for several years. I had a long discussion with Dr. Purdy today. We are going to hold her Coumadin probably for the next 7-10 days. She has nonvalvular atrial fibrillation, so the risk of thromboembolic phenomenon is low and apparently she is in sinus rhythm now, according to what I can glean. She is probably in and out of atrial fibrillation which does put her at risk and certainly I think we need to get her back on Coumadin at some time, probably in the next week or two. The subdural is small, probably occurred 5 days ago and it appears to be stable to actually perhaps resolving a bit by serial CAT scans and the policy I believe would be to do another CAT scan tomorrow, [facility] as I do not think she will be able to go home with her current gait disturbance and obtain another CAT scan in a week assuming the one tomorrow is stable, I think we can probably start her back on the Coumadin if the CT in a week is sable or shows further resolution of the sdh. She would then be followed by probably weekly or biweekly CT scans for about a month or so. A lot of this is contingent on how well she does and I will check back with her tomorrow. EDNA
[2017-02-12] MEDS: CEFTRIAXONE SOD INJ 1 GM in DEXTROSE 5% ADD-VANTAGE 50ML 50 ML IV SCH (14:33)
--- NOTE | 2017-02-12 16:53 | Progress Note ---
Medicine Progress Note Date & Time of Visit: Feb 12, 2017 at ~ 12:00 . Subjective No headache. Left hip pain with movement. No CP. No cough or SOB. No nausea or vomiting. Has Mahajan cath. . Objective Last 8 Hrs Date Time Temp Pulse Resp B/P (MAP) Pulse Ox O2 Delivery O2 Flow Rate FiO2 02/12/17 16:26 36.5 77 16 143/78 (99) 97 Room Air 02/12/17 13:30 36.4 92 16 149/82 (104) 95 Room Air 02/12/17 13:27 36.5 78 18 97 02/12/17 12:40 97 Room Air Physical Exam: General- no distress Lungs- clear Heart- irregular Abdomen- + BS, soft, nontender Extremities- no pretibial edema or calf tenderness Neuro- alert, pleasantly confused (O x 2); PERRL, EOMI; motor strength extremities intact . Laboratory Results: Last 24 Hours Test 02/11/17 20:21 02/11/17 22:53 02/12/17 06:08 02/12/17 06:37 Bedside Glucose 146 mg/dl 119 mg/dl Prothrombin Time 17.4 SECONDS 14.2 SECONDS Prothromb Time International Ratio 1.6 1.3 White Blood Count 7.36 K/uL Red Blood Count 4.17 M/uL Hemoglobin 13.3 g/dL Hematocrit 39.3 % Mean Corpuscular Volume 94.2 fL Mean Corpuscular Hemoglobin 31.9 pg Mean Corpuscular Hemoglobin Concent 33.8 g/dl RDW Standard Deviation 49.5 fL RDW Coefficient of Variation 14.6 % Platelet Count 207 K/uL Mean Platelet Volume 10.0 fL Sodium Level 135 mmol/L Potassium Level 4.4 mmol/L Chloride Level 103 mmol/L Carbon Dioxide Level 26 mmol/L Anion Gap 7.0 mmol/L Blood Urea Nitrogen 22 mg/dl Creatinine 0.90 mg/dl Est Creatinine Clear Calc Drug Dose 42.1 ml/min Estimated GFR () 72.0 Estimated GFR (Non- 62.1 BUN/Creatinine Ratio 24.8 Random Glucose 95 mg/dl Calcium Level 9.4 mg/dl Test 02/12/17 10:49 Bedside Glucose 210 mg/dl Assessment & Plan SUBDURAL HEMATOMA MRI demonstrated 5 mm right frontal SDH. Apparently secondary to fall 4 days prior to admission. On warfarin with therapeutic INR. Warfarin reversed. F/U CT today demonstrates stability of small SDH. Neuro consulted. Continue neuro checks. LEFT HIP FRACTURE Secondary to fall 4 days prior to admission. CT hip demonstrated avulsed fracture of the superior aspect of the greater trochanter left hip. Seen in consultation by Ortho. Nonsurgical management recommended; weight bearing as tolerated with walker and assistance. Check vitamin D level. UTI (present on admission) Admission UA demonstrated + leukocyte esterase, > 30 WBC's, bacteria. ? symptomatic. No dysuria, but possible that fall may have been due to UTI. Urine culture growing gram neg bacilli. Continue ceftriaxone. CORONARY ARTERY DISEASE No anginal symptoms. Continue metoprolol. ATRIAL FIBRILLATION Warfarin held / reversed due to SDH. Continue metoprolol for rate control. CHF Chronic left ventricular diastolic heart failure. Compensated. HYPERTENSION Continue metoprolol and losartan. CKD III Serum creatinine 1.21 on admission. Creatinine today = 0.90. Follow. DM TYPE 2 Tight control not indicated due to advanced age and comorbidities. Hold metformin during hospital stay. Lantus / NovoLog per protocol RENAL CELL CARCINOMA Continue axitinib under direction of Dr. Cadena. DEMENTIA Monitor for delirium. VTE PROPHYLAXIS No anticoagulants due to SDH. SCD's. DISPOSITION To be determined. May need skilled care or rehab. Family Medicine follow-up with Dr. Alessia Ward. Cardiology follow-up with Dr. Fields. . Current Inpatient Medications: Current Inpatient Medications Medications (Trade) Dose Ordered Sig/Hubert Route Start Time Stop Time Status Last Admin Dose Admin Acetaminophen (Tylenol Tab) 650 mg Q4H PRN PO 02/11/17 18:00 03/13/17 17:59 Future Hold Ondansetron HCl (Zofran Inj) 4 mg Q6H PRN IV 02/11/17 18:00 03/13/17 17:59 Atorvastatin Calcium (Lipitor Tab) 40 mg HS PO 02/11/17 21:00 03/13/17 20:59 02/11/17 20:51 40 MG Levothyroxine Sodium (Synthroid Tab) 100 mcg DAILYBB PO 02/12/17 06:00 03/14/17 06:59 02/12/17 06:06 100 MCG Losartan Potassium (coZAAR TAB) 25 mg DAILY PO 02/12/17 09:00 03/14/17 08:59 02/12/17 07:44 25 MG Metoprolol Tartrate (Lopressor Tab) 50 mg BID PO 02/11/17 21:00 03/13/17 20:59 02/12/17 07:44 50 MG Miscellaneous Information (Order Awaiting Action) 1 ea QS N/A 02/12/17 00:00 03/14/17 00:00 Insulin Aspart (novoLOG ASPART) SLIDING SCALE If C... ACHS SC 02/11/17 21:00 03/13/17 20:59 02/12/17 12:11 7 UNITS Glucose (Glucose 40% Gel) 15-30 GRAMS 15 GRAMS... UD PRN PO 02/11/17 18:15 03/13/17 18:14 Glucose (Glucose Chew Tab) 4-8 Tablets 4 Tabl... UD PRN PO 02/11/17 18:15 03/13/17 18:14 Dextrose (Dextrose 50% 50ML Syringe) 25-50ML OF 50% DW IV FOR... UD PRN IV 02/11/17 18:15 03/13/17 18:14 Glucagon (Glucagon Inj) 1 mg UD PRN SQ 02/11/17 18:15 03/13/17 18:14 Acetaminophen (Tylenol Tab) 1,000 mg Q8 PO 02/11/17 22:00 03/13/17 21:59 02/12/17 14:33 1,000 MG Ceftriaxone Sodium 1 gm/ Dextrose 50 ml @ 100 mls/hr DAILY@1500 IV 02/12/17 15:00 02/20/17 15:29 02/12/17 14:33 100 MLS/HR Tramadol HCl (Ultram Tab) 25 mg Q6H PRN PO 02/11/17 20:30 03/13/17 18:29 02/11/17 20:54 25 MG
[2017-02-12] MEDS: INSULIN GLARGINE SOLOSTAR 100 UNITS/ML 3 ML PEN SC SCH (20:47)
[2017-02-12] MEDS: ATORVASTATIN 40 MG TAB PO SCH (20:48)
[2017-02-12] MEDS: TRAMADOL HCL 50 MG TAB PO PRN (23:55)
[2017-02-13 00:03] VITALS: BP 156/88; PULSE 75; TEMP 36.4; O2SAT 98
[2017-02-13] MEDS: LEVOTHYROXINE 100 MCG TAB PO SCH (06:14)
[2017-02-13] MEDS: ACETAMINOPHEN 500 MG TAB PO SCH ×3 (06:14→22:18)
[2017-02-13 06:34] LABS: INR 1.1 (0.9-1.1); PROTHROMBIN TIME (PATIENT) 11.9 SECONDS (9.0-12.0)
[2017-02-13 06:37] LABS: HEMATOCRIT 37.6 % (37-47)
[2017-02-13 06:50] LABS: BUN/CREATININE RATIO 22.6 (10-20); CALCIUM 8.9 mg/dl (8.5-10.1); CREATININE 0.93 mg/dl (0.60-1.20); POTASSIUM 4.6 mmol/L (3.5-5.1)
[2017-02-13 07:15] VITALS: BP 136/84; PULSE 88; TEMP 36.4; O2SAT 97
[2017-02-13 08:30] VITALS: O2SAT 97
[2017-02-13] MEDS: LOSARTAN POTASSIUM 25 MG TAB PO SCH (08:34)
[2017-02-13] MEDS: METOPROLOL TARTRATE 50 MG TAB PO SCH ×2 (08:34→20:36)
[2017-02-13] MEDS: INSULIN GLARGINE SOLOSTAR 100 UNITS/ML 3 ML PEN SC SCH ×2 (08:46→20:42)
[2017-02-13] MEDS: INSULIN ASPART 100 UNITS/ML 3 ML PEN SC SCH ×4 (08:47→20:42)
--- NOTE | 2017-02-13 13:49 | DIAGNOSTIC IMAGING REPORT ---
HEAD CT NONCONTRAST CT DOSE: 537.48 mGy.cm HISTORY: f/u subdural hematoma TECHNIQUE: Multiaxial CT images of the head were performed without the use of intravenous contrast. Automated exposure control was utilized for this study. A dose lowering technique was utilized adhering to the principles of ALARA. Comparison: Head CT 02/12/2017 Findings: The paranasal sinuses and mastoid air cells are clear. The calvarium and skull base are intact. There is no mass, midline shift, acute infarct. No change in the small right frontal subdural hematoma which measures a maximal thickness of 4 mm. This is intermediate to low density suggesting a subacute hematoma. No additional sites of intracranial hemorrhage identified. Mild microvascular ischemic changes again noted. Impression: No change in the small right frontal subdural hematoma. This favors a subacute hematoma. Electronically signed by: Bradley Moreira M.D. 02/13/2017 1:48 PM Dictated Date/Time: 02/13/2017 1:45 PM
[2017-02-13] MEDS: CEFTRIAXONE SOD INJ 1 GM in DEXTROSE 5% ADD-VANTAGE 50ML 50 ML IV SCH (15:12)
[2017-02-13 15:57] VITALS: BP 135/74; PULSE 84; TEMP 36.3; O2SAT 98
[2017-02-13] MEDS: AXITINIB 1 MG PO SCH (20:34)
[2017-02-13] MEDS: ATORVASTATIN 40 MG TAB PO SCH (20:36)
--- NOTE | 2017-02-13 22:49 | Progress Note ---
Medicine Progress Note Date & Time of Visit: Feb 13, 2017 at 10:10 . Subjective Very upset. Wants to go home. Does not understand that she has a subdural hematoma and a hip fracture. . Objective Last 8 Hrs Date Time Temp Pulse Resp B/P (MAP) Pulse Ox O2 Delivery O2 Flow Rate FiO2 02/13/17 16:30 Room Air 02/13/17 15:57 36.3 84 18 135/74 (94) 98 Room Air Physical Exam: General- no distress Lungs- Heart- Abdomen- Extremities- Neuro- alert, confused, agitated, delusional thoughts (Could not do a complete examination because of patient's agitation.) . Laboratory Results: Last 24 Hours Test 02/13/17 06:04 02/13/17 07:36 02/13/17 11:42 02/13/17 16:41 Hemoglobin 12.7 g/dL Hematocrit 37.6 % Prothrombin Time 11.9 SECONDS Prothromb Time International Ratio 1.1 Sodium Level 138 mmol/L Potassium Level 4.6 mmol/L Chloride Level 103 mmol/L Carbon Dioxide Level 27 mmol/L Anion Gap 8.0 mmol/L Blood Urea Nitrogen 21 mg/dl Creatinine 0.93 mg/dl Est Creatinine Clear Calc Drug Dose 40.7 ml/min Estimated GFR () 69.2 Estimated GFR (Non- 59.7 BUN/Creatinine Ratio 22.6 Random Glucose 121 mg/dl Calcium Level 8.9 mg/dl Bedside Glucose 126 mg/dl 251 mg/dl 142 mg/dl Test 02/13/17 19:53 Bedside Glucose 272 mg/dl Assessment & Plan SUBDURAL HEMATOMA MRI demonstrated 5 mm right frontal SDH. Apparently secondary to fall 4 days prior to admission. On warfarin with therapeutic INR. Warfarin reversed. Neuro consulted. CT today demonstrate stability of small SDH over last 48 hrs. Warfarin can probably be resumed in 2 weeks if follow-up CT stable and patient felt to be acceptable risk for resumption of anticoagulation. LEFT HIP FRACTURE Secondary to fall 4 days prior to admission. CT hip demonstrated avulsed fracture of the superior aspect of the greater trochanter left hip. Seen in consultation by Ortho. Nonsurgical management recommended; weight bearing as tolerated with walker and assistance. Check vitamin D level. UTI (present on admission) Admission UA demonstrated + leukocyte esterase, > 30 WBC's, bacteria. ? symptomatic. No dysuria, but possible that fall may have been due to UTI. Urine culture growing gram neg bacilli. Continue ceftriaxone. CORONARY ARTERY DISEASE No anginal symptoms. Continue metoprolol. ATRIAL FIBRILLATION Warfarin held / reversed due to SDH. Continue metoprolol for rate control. CHF Chronic left ventricular diastolic heart failure. Compensated. HYPERTENSION Continue metoprolol and losartan. CKD III Serum creatinine 1.21 on admission. Creatinine today = 0.93. Follow. DM TYPE 2 Tight control not indicated due to advanced age and comorbidities. Hold metformin during hospital stay. Lantus / NovoLog per protocol FBS = 126. RENAL CELL CARCINOMA Continue axitinib under direction of Dr. Cadena. DEMENTIA Suspect baseline dementia with superimposed delirium due to hospital stay and possibly UTI. Best to avoid medications possible. 1:1 staffing as necessary for patient's safety. VTE PROPHYLAXIS No anticoagulants due to SDH. SCD's. DISPOSITION Unlikely that patient will be willing to go to skilled care or inpatient rehabilitation. Discussed status with son this morning. He feels that family and friends can offer adequate supervision and assistance at home. On the hospital bed, walker, shower chair. Case Management consulted. Family Medicine follow-up with Dr. Alessia Ward. Cardiology follow-up with Dr. Fields. . Consultants: Neurology . Current Inpatient Medications: Current Inpatient Medications Medications (Trade) Dose Ordered Sig/Hubert Route Start Time Stop Time Status Last Admin Dose Admin Acetaminophen (Tylenol Tab) 650 mg Q4H PRN PO 02/11/17 18:00 03/13/17 17:59 Future Hold Ondansetron HCl (Zofran Inj) 4 mg Q6H PRN IV 02/11/17 18:00 03/13/17 17:59 Atorvastatin Calcium (Lipitor Tab) 40 mg HS PO 02/11/17 21:00 03/13/17 20:59 02/13/17 20:36 40 MG Levothyroxine Sodium (Synthroid Tab) 100 mcg DAILYBB PO 02/12/17 06:00 03/14/17 06:59 02/13/17 06:14 100 MCG Losartan Potassium (coZAAR TAB) 25 mg DAILY PO 02/12/17 09:00 03/14/17 08:59 02/13/17 08:34 25 MG Metoprolol Tartrate (Lopressor Tab) 50 mg BID PO 02/11/17 21:00 03/13/17 20:59 02/13/17 20:36 50 MG Insulin Aspart (novoLOG ASPART) SLIDING SCALE If C... ACHS SC 02/11/17 21:00 03/13/17 20:59 02/13/17 20:42 4 UNITS Glucose (Glucose 40% Gel) 15-30 GRAMS 15 GRAMS... UD PRN PO 02/11/17 18:15 03/13/17 18:14 Glucose (Glucose Chew Tab) 4-8 Tablets 4 Tabl... UD PRN PO 02/11/17 18:15 03/13/17 18:14 Dextrose (Dextrose 50% 50ML Syringe) 25-50ML OF 50% DW IV FOR... UD PRN IV 02/11/17 18:15 03/13/17 18:14 Glucagon (Glucagon Inj) 1 mg UD PRN SQ 02/11/17 18:15 03/13/17 18:14 Acetaminophen (Tylenol Tab) 1,000 mg Q8 PO 02/11/17 22:00 03/13/17 21:59 02/13/17 22:18 1,000 MG Ceftriaxone Sodium 1 gm/ Dextrose 50 ml @ 100 mls/hr DAILY@1500 IV 02/12/17 15:00 02/20/17 15:29 02/13/17 15:12 100 MLS/HR Tramadol HCl (Ultram Tab) 25 mg Q6H PRN PO 02/11/17 20:30 03/13/17 18:29 02/12/17 23:55 25 MG Insulin Glargine (Lantus Solostar Pen) 6 units BID SC 02/12/17 20:00 03/14/17 19:59 02/13/17 20:42 6 UNITS
[2017-02-13 23:50] VITALS: BP 179/89; PULSE 76; TEMP 36.3; O2SAT 98
[2017-02-14 01:30] VITALS: BP 154/82; PULSE 78
[2017-02-14] MEDS: LEVOTHYROXINE 100 MCG TAB PO SCH (05:52)
[2017-02-14] MEDS: ACETAMINOPHEN 500 MG TAB PO SCH ×2 (05:55→15:41)
--- NOTE | 2017-02-14 07:12 | PROGRESS NOTE ---
DATE: 02/13/2017 SUBJECTIVE: Christen has been moved to fourth floor. She is with family now. This situation became a little more clearcut after I had a chance to talk with her [id number] and son. She apparently lives with another son on her property, but the current family members also provide her care. She has got some paranoid ideation regarding nursing staff and medical staff and was refusing to have her CT scan done. After a period of time and going over some of the images with her family and herself, she has at least at this point agreed to go down for a noncontrast CT. Family will accompany her and hopefully this will show stability or even a decreased size of the subdural and plans to get her off to [facility] could be enacted. She is apparently willing to go to [facility] as she is familiar with the institution having known individuals who have been there and looks forward to actually leaving [facility] and going down to [facility], so hopefully we can get this arranged. She is at baseline according to family members. 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 I do not think this is the effects of a subdural hematoma, which is small and is not associated with any documented brain contusion. The exam remains nonfocal. She is agitated, but can be calmed down. She has no cranial neuropathies. No gross hemiparesthesia. There are no abnormal involuntary movements. Reflexes are impossible to get today due to her lack of cooperation and sensation cannot be tested. I will check back tomorrow, but hopefully, if this CT will be stable, we can get her back to [facility], another CT will be done in a week and if that is stable, then she can restart on her Coumadin. EDNA
[2017-02-14 08:18] VITALS: BP 148/89; PULSE 93; TEMP 36.3; O2SAT 97
[2017-02-14] MEDS: LOSARTAN POTASSIUM 25 MG TAB PO SCH (09:29)
[2017-02-14 09:30] VITALS: O2SAT 97
[2017-02-14] MEDS: AXITINIB 1 MG PO SCH (09:30)
[2017-02-14] MEDS: INSULIN ASPART 100 UNITS/ML 3 ML PEN SC SCH ×2 (09:37→12:33)
[2017-02-14] MEDS: INSULIN GLARGINE SOLOSTAR 100 UNITS/ML 3 ML PEN SC SCH (09:37)
[2017-02-14] MEDS: METOPROLOL TARTRATE 50 MG TAB PO SCH (10:37)
--- NOTE | 2017-02-14 10:54 | Progress Note ---
Medicine Progress Note Date & Time of Visit: Feb 14, 2017 at 10:54 . Subjective Patient desperately wants to go home. She alert and understanding of her condition / circumstances. Nursing reports that her gait has improved and she is able to use walker with minimal assistance. Patient denies headache, chest pain, SOB, nausea, vomiting. . Objective Last 8 Hrs Date Time Temp Pulse Resp B/P (MAP) Pulse Ox O2 Delivery O2 Flow Rate FiO2 02/14/17 09:30 97 Room Air 02/14/17 08:18 36.3 93 18 148/89 (108) 97 Physical Exam: General- no distress Lungs- clear Heart- irregular Abdomen- + BS, soft, nontender Extremities- hematoma left hip and lateral thigh; no pretibial edema or calf tenderness Neuro- alert, cooperative, oriented to person, place, circumstances . Laboratory Results: Last 24 Hours Test 02/13/17 11:42 02/13/17 16:41 02/13/17 19:53 02/14/17 06:15 Bedside Glucose 251 mg/dl 142 mg/dl 272 mg/dl 25-Hydroxy Vitamin D Total 17.6 ng/ml Test 02/14/17 08:06 Bedside Glucose 124 mg/dl Assessment & Plan SUBDURAL HEMATOMA MRI demonstrated 5 mm right frontal SDH. Apparently secondary to fall 4 days prior to admission. On warfarin with therapeutic INR. Warfarin reversed. Neuro consulted. CT today demonstrate stability of small SDH over last [address] in about 1 week. Warfarin can probably be resumed in 1 week if follow-up CT stable and patient felt to be acceptable risk for resumption of anticoagulation. Follow-up CT scans weekly or biweekly for 1 month after resumption of warfarin recommended. LEFT HIP FRACTURE Secondary to fall 4 days prior to admission. CT hip demonstrated avulsed fracture of the superior aspect of the greater trochanter left hip. Seen in consultation by Ortho. Nonsurgical management recommended; weight bearing as tolerated with walker and assistance. 25-OH vitamin D level = 17.6. Start calcium + D. UTI (present on admission) Admission UA demonstrated + leukocyte esterase, > 30 WBC's, bacteria. ? symptomatic. No dysuria, but possible that fall and/or confusion may have been due to UTI. Urine culture grew E coli. Initially received ceftriaxone; transitioned to oral therapy with cephalexin. CORONARY ARTERY DISEASE No anginal symptoms. Continue metoprolol. ATRIAL FIBRILLATION Warfarin held / reversed due to SDH. Continue metoprolol for rate control. CHF Chronic left ventricular diastolic heart failure. Compensated. HYPERTENSION Continue metoprolol and losartan. CKD III Serum creatinine 1.21 on admission. Creatinine 02/13 was 0.93. Follow. DM TYPE 2 Tight control not indicated due to advanced age and comorbidities. Hold metformin during hospital stay. Lantus / NovoLog per protocol FBS = 124. RENAL CELL CARCINOMA Continue axitinib under direction of Dr. Cadena. DEMENTIA Suspect baseline dementia with superimposed delirium due to hospital stay and possibly UTI. Best to avoid antipsychotic meds or benzodiazepines if possible. 1:1 staffing used PRN for patient safety. Mental status significantly better by discharge. VTE PROPHYLAXIS No anticoagulants due to SDH. SCD's. DISPOSITION Patient desperately wants to go home and would not do well in halfway facility or inpatient rehab. She is ambulating with a walker with minimal assistance. Spoke with son Arturo. Case Management consulted. Arrangements made for walker, shower chair, and hospital bed (30 degree elevation of bed necessary for subdural hematoma). Family Medicine follow-up with Dr. Alessia Ward. Cardiology follow-up with Dr. Fields. . Consultants: Neurology . Current Inpatient Medications: Current Inpatient Medications Medications (Trade) Dose Ordered Sig/Hubert Route Start Time Stop Time Status Last Admin Dose Admin Acetaminophen (Tylenol Tab) 650 mg Q4H PRN PO 02/11/17 18:00 03/13/17 17:59 Future Hold Ondansetron HCl (Zofran Inj) 4 mg Q6H PRN IV 02/11/17 18:00 03/13/17 17:59 Atorvastatin Calcium (Lipitor Tab) 40 mg HS PO 02/11/17 21:00 03/13/17 20:59 02/13/17 20:36 40 MG Levothyroxine Sodium (Synthroid Tab) 100 mcg DAILYBB PO 02/12/17 06:00 03/14/17 06:59 02/14/17 05:52 100 MCG Losartan Potassium (coZAAR TAB) 25 mg DAILY PO 02/12/17 09:00 03/14/17 08:59 02/14/17 09:29 25 MG Metoprolol Tartrate (Lopressor Tab) 50 mg BID PO 02/11/17 21:00 03/13/17 20:59 02/14/17 10:37 50 MG Insulin Aspart (novoLOG ASPART) SLIDING SCALE If C... ACHS SC 02/11/17 21:00 03/13/17 20:59 02/14/17 09:37 1 UNITS Glucose (Glucose 40% Gel) 15-30 GRAMS 15 GRAMS... UD PRN PO 02/11/17 18:15 03/13/17 18:14 Glucose (Glucose Chew Tab) 4-8 Tablets 4 Tabl... UD PRN PO 02/11/17 18:15 03/13/17 18:14 Dextrose (Dextrose 50% 50ML Syringe) 25-50ML OF 50% DW IV FOR... UD PRN IV 02/11/17 18:15 03/13/17 18:14 Glucagon (Glucagon Inj) 1 mg UD PRN SQ 02/11/17 18:15 03/13/17 18:14 Acetaminophen (Tylenol Tab) 1,000 mg Q8 PO 02/11/17 22:00 03/13/17 21:59 02/14/17 05:55 1,000 MG Ceftriaxone Sodium 1 gm/ Dextrose 50 ml @ 100 mls/hr DAILY@1500 IV 02/12/17 15:00 02/20/17 15:29 02/13/17 15:12 100 MLS/HR Tramadol HCl (Ultram Tab) 25 mg Q6H PRN PO 02/11/17 20:30 03/13/17 18:29 02/12/17 23:55 25 MG Insulin Glargine (Lantus Solostar Pen) 6 units BID SC 02/12/17 20:00 03/14/17 19:59 02/14/17 09:37 6 UNITS
[2017-02-14] MEDS ORDERED: ACET-1138 PO (10:58)
[2017-02-14] MEDS ORDERED: KFL500 PO (10:59)
[2017-02-14] MEDS ORDERED: CALC500C70 PO (11:04)
--- NOTE | 2017-02-14 11:11 | Discharge Instructions ---
Discharge Instructions Date of Service Feb 14, 2017. Admission Reason for Admission: left hip pain . Discharge Discharge Diagnosis / Problem: broken hip, blood collection around brain, bladder infection Discharge Goals Goal(s): Decrease discomfort, Improve function, Improve disease control Activity Recommendations Activity Limitations: as noted below Weightbearing Status: Left weightbearing (as tolerated) Use walker and help to get around. Be careful not to fall. . . Instructions / Follow-Up Instructions / Follow-Up APPOINTMENTS: FAMILY MEDICINE 02/18/2017 10:30 AM Alessia Ward DO HEMATOLOGY / ONCOLOGY 02/23/2017 8:45 AM Pranav Cadena MD CARDIOLOGY 04/07/2017 9:05 AM Anil Fields DO ORTHOPEDICS Dr. Martinez [facility]. Please call his office for recheck in about 2 weeks. OTHER INSTRUCTIONS: You broke your left hip, but there is no need for surgery. Take Extra Strength Tylenol 1 pill every 4 hours as needed for pain. Use walker and help to get around. Take calcium with vitamin D twice a day to keep your bones strong. You apparently bumped your head when you fell. There is a small amount a blood layered on top of your brain called a subdural hematoma. Warfarin (Coumadin) is being held until further notice. Will ask Dr. Ward to get a repeat CT scan in clinic. You have a bladder infection. Take cephalexin (Keflex) 3 times a day until gone. Seek medical attention if you have: * headache, confusion, weakness, balance problems * temperature above 101 * chest pain or trouble breathing * abdominal pain, nausea, vomiting * diarrhea, dark stools or bloody stools * any unanswered questions or concerns Call 911 if symptoms are severe. Call if you have any questions or problems. My cell # is [phone]. You can also reach a [facility] hospitalist on duty at [facility] 24 hours a day by calling [phone]. Please take good care of yourself. Esteban Purdy . Current Hospital Diet Patient's current hospital diet: Diabetes Type 2 Diet Discharge Diet Recommended Diet: AHA Diet (Heart Healthy), Diabetes Type 2 Diet Pending Studies Studies pending at discharge: no Laboratory Results Hemoglobin A1c Test 01/05/17 05:32 Range/Units Estimated Average Glucose 146 mg/dl Hemoglobin A1c 6.7 H 4.5-5.6 % Medical Emergencies . Who to Call and When: Medical Emergencies: If at any time you feel your situation is an emergency, please call 911 immediately. . Non-Emergent Contact Non-Emergency issues call your: Primary Care Provider, Hospital Doctor . . "Provider Documentation" section prepared by Esteban Purdy. . VTE Core Measure Inpt VTE Proph given/why not?: SCD's
[2017-02-14] MEDS: TRAMADOL HCL 50 MG TAB PO PRN (11:33)
[2017-02-14 15:06] VITALS: BP 148/89; PULSE 93; TEMP 36.3; O2SAT 97
[2017-02-14] MEDS: CEFTRIAXONE SOD INJ 1 GM in DEXTROSE 5% ADD-VANTAGE 50ML 50 ML IV SCH (15:41)
[2017-02-14 16:00] VITALS: BP 172/73
--- NOTE | 2017-02-14 17:43 | PROGRESS NOTE ---
DATE: 02/14/2017 Christen is much better than she was yesterday. She is still little disoriented and not as ideally cooperative with the nurses as she should be, but much improved from yesterday, in fact took a walk with the nurses around the unit, is using a walker. Recalls seeing me, does not have any further paranoid ideation about my role in her care and more importantly has no focal neurologic findings and her CT scan shows stability of the subdural which is now felt to be more subacute and still has 4 mm in maximum width. My recommendations continue to be to repeat a CT scan in a week and at that point if the subdural has not increased in size or may be smaller, to restart the Coumadin as she is at risk because of her atrial fibrillation. We can see her on an outpatient basis in several weeks' time in the neurology office just to follow up and probably would get a CT scan again in about a month assuming that one done a week shows stability. I will check back with her tomorrow, but for now, neurology has no further recommendations.
--- NOTE | 2017-02-15 19:45 | Discharge Summary ---
Discharge Summary Date of Service Feb 15, 2017. Discharge Summary Admission Date: Feb 11, 2017 at 17:49 Discharge Date: Feb 14, 2017 Discharge Disposition: Home with services Principal Diagnosis: subdural hematoma OTHER ACUTE DIAGNOSES: greater trochanteric fracture delirium UTI E coli (present on admission) . Secondary Diagnoses/Problems: Chronic and Resolved Medical Problems: (1) Afib Status: Chronic (2) CAD (coronary artery disease) Status: Chronic (3) CKD (chronic kidney disease), stage III Status: Chronic (4) DM type 2 (diabetes mellitus, type 2) Status: Chronic (5) HLD (hyperlipidemia) Status: Chronic (6) HTN (hypertension) Status: Chronic (7) Hypothyroidism Status: Chronic (8) skilled nursing (current) use of anticoagulants Status: Chronic (9) Renal cell carcinoma of right kidney Status: Chronic Surgical Problems: (1) H/O colonoscopy Permanent Comment: 07/23/2014 adenomatous & hyperplastic polyps, diverticulosis, repeat 3 yrs/COLONOSCOPY FLEXIBLE PROXIMAL DIAGNOSTIC performed by Sánchez Prasad MD at ENDOSCOPY [facility] Status: Chronic (2) History of kidney surgery Permanent Comment: S/P R kidney resection secondary to renal cell CA. 03/2016 Status: Chronic (3) History of partial hysterectomy Status: Chronic (4) Hx of appendectomy Status: Chronic (5) Hx of CABG Status: Chronic (6) S/P cholecystectomy Status: Chronic . Procedures: CT head MRI brain PT OT . Consultations: Ortho with Dr. Vergara Neurology with Dr. Stephens . Pending Studies/Follow-Up: Please check f/u CT head in 1 week. . Medication Reconciliation New Medications: Acetaminophen (Tylenol Extra Strength) 500 Mg Tab 500 MG PO Q4 PRN for Pain, #30 TAB No prescription necessary. Calcium/Vitamin D (Os-Kenan 500 Plus D) Tab 1 TAB PO BID, #60 TAB No prescription necessary. Cephalexin Monohydrate (Cephalexin) 500 Mg Cap 500 MG PO TID, #15 CAP Continued Medications: Atorvastatin (Lipitor) 40 Mg Tab 40 MG PO HS, TAB Axitinib (Inlyta) 1 Mg Tab 2 MG PO BID Levothyroxine Sodium (Synthroid) 100 Mcg Tab 100 MCG PO QAM Losartan Potassium (Losartan Potassium) 25 Mg Tab 25 MG PO DAILY Metformin Hcl (Glucophage) 500 Mg Tab 500 MG PO BID, TAB Metoprolol Tartrate (Metoprolol Tartrate) 50 Mg Tab 50 MG PO BID Discontinued Medications: Warfarin Sod (Coumadin) 2.5 Mg Tab 1 TAB PO 6XWK for 30 Days, #30 TABS 3 Refills everday except Tuesday Admission Information HPI (per Admitting provider): 76 year old female who was referred to the ED from her PCPs office where she was found to have a left trochanteric fracture. Patient suffered a fall 4 days ago. She reports that she had turned all the lights off on her house and was trying to get to bed when she fell onto her left side. She reports she did hit her head but denies loss of coconsciousness. She has had left hip since then however has been able to ambulate. She denies headache and blurred vision. She denies unilateral weakness, numbness, or tingling. No chest pain shortness of breath. she denies lightheadedness, dizziness, diaphoresis, or syncope. No abdominal pain, nausea, vomiting, or diarrhea. She denies fever and chills. No urinary symptoms. In the ED, patient had a CT of the left hip that showed avulsed fracture of the superior aspect of the greater trochanter left hip. Orthopedics evaluated the patient who recommended non operative treatment. She had a head CT that was negative however follow up brain MRI shows small right convexity subdural hematoma with a maximal thickness of 5 mm. She is on Coumadin for atrial fibrillation with INR 2.4. U/A suggests UTI. She was given Rocephin. Physical Exam (per Admitting): General Appearance: WD/WN, no apparent distress Head: normocephalic, atraumatic Eyes: normal inspection, PERRL, EOMI, sclerae normal ENT: hearing grossly normal, + pertinent finding (mucous membranes moist) Neck: supple, no JVD, trachea midline Respiratory/Chest: lungs clear, normal breath sounds, no respiratory distress Cardiovascular: regular rate, rhythm, no edema, normal peripheral pulses Abdomen/GI: normal bowel sounds, non tender, soft, no organomegaly Extremities/Musculoskelatal: no calf tenderness, normal capillary refill, + pertinent finding (pain with palpation over left hip ) Neurologic/Psych: no motor/sensory deficits, alert, + disoriented (to time) Skin: normal color, warm/dry Hospital Course SUBDURAL HEMATOMA MRI demonstrated 5 mm right frontal SDH. Apparently secondary to fall 4 days prior to admission. On warfarin with therapeutic INR. Warfarin reversed. Neuro consulted. Follow-up CT's demonstrated stability of small SDH over [address] in about 1 week. Warfarin can probably be resumed in 1 week if follow-up CT stable and patient felt to be acceptable risk for resumption of anticoagulation. Follow-up CT scans weekly or biweekly for 1 month after resumption of warfarin recommended. LEFT HIP FRACTURE Secondary to fall 4 days prior to admission. CT hip demonstrated avulsed fracture of the superior aspect of the greater trochanter left hip. Seen in consultation by Ortho. Nonsurgical management recommended; weight bearing as tolerated with walker and assistance. 25-OH vitamin D level = 17.6. Start calcium + D. UTI (present on admission) Admission UA demonstrated + leukocyte esterase, > 30 WBC's, bacteria. ? symptomatic. No dysuria, but possible that fall and/or confusion may have been due to UTI. Urine culture grew E coli. Initially received ceftriaxone; transitioned to oral therapy with cephalexin. CORONARY ARTERY DISEASE No anginal symptoms. Continue metoprolol. ATRIAL FIBRILLATION Warfarin held / reversed due to SDH. Continue metoprolol for rate control. CHF Chronic left ventricular diastolic heart failure. Compensated. HYPERTENSION Continue metoprolol and losartan. CKD III Serum creatinine 1.21 on admission. Creatinine 02/13 was 0.93. Follow. DM TYPE 2 Tight control not indicated due to advanced age and comorbidities. Hold metformin during hospital stay. Lantus / NovoLog per protocol FBS = 124. RENAL CELL CARCINOMA Continue axitinib under direction of Dr. Cadena. DEMENTIA Suspect baseline dementia with superimposed delirium due to hospital stay and possibly UTI. Best to avoid antipsychotic meds or benzodiazepines if possible. 1:1 staffing used PRN for patient safety. Mental status significantly better by discharge. VTE PROPHYLAXIS No anticoagulants due to SDH. SCD's. DISPOSITION Patient desperately wanted to go home and would not do well in custodial facility or inpatient rehab. Ambulating with a walker with minimal assistance by discharge. Case Management consulted. Arrangements made for walker, shower chair, and hospital bed (30 degree elevation of bed necessary for subdural hematoma). Family Medicine follow-up with Dr. Alessia Ward. Cardiology follow-up with Dr. Fields. . Total time spent on discharge = This includes examination of the patient, discharge planning, medication reconciliation, and communication with other providers. Discharge Instructions Date of Service Feb 14, 2017. Admission Reason for Admission: left hip pain . Discharge Discharge Diagnosis / Problem: broken hip, blood collection around brain, bladder infection Discharge Goals Goal(s): Decrease discomfort, Improve function, Improve disease control Activity Recommendations Activity Limitations: as noted below Weightbearing Status: Left weightbearing (as tolerated) Use walker and help to get around. Be careful not to fall. . . Instructions / Follow-Up Instructions / Follow-Up APPOINTMENTS: FAMILY MEDICINE 02/18/2017 10:30 AM Alessia Ward DO HEMATOLOGY / ONCOLOGY 02/23/2017 8:45 AM Pranav Cadena MD CARDIOLOGY 04/07/2017 9:05 AM Anil Fields DO [facility]OPED[facility]. Please call his office for recheck in about 2 weeks. OTHER INSTRUCTIONS: You broke your left hip, but there is no need for surgery. Take Extra Strength Tylenol 1 pill every 4 hours as needed for pain. Use walker and help to get around. Take calcium with vitamin D twice a day to keep your bones strong. You apparently bumped your head when you fell. There is a small amount a blood layered on top of your brain called a subdural hematoma. Warfarin (Coumadin) is being held until further notice. Will ask Dr. Ward to get a repeat CT scan in clinic. You have a bladder infection. Take cephalexin (Keflex) 3 times a day until gone. Seek medical attention if you have: * headache, confusion, weakness, balance problems * temperature above 101 * chest pain or trouble breathing * abdominal pain, nausea, vomiting * diarrhea, dark stools or bloody stools * any unanswered questions or concerns Call 911 if symptoms are severe. Call if you have any questions or problems. My cell # is [phone]. You can also reach a [facility] hospitalist on duty at [facility] 24 hours a day by calling [phone]. Please take good care of yourself. Esteban Purdy . Current Hospital Diet Patient's current hospital diet: Diabetes Type 2 Diet Discharge Diet Recommended Diet: AHA Diet (Heart Healthy), Diabetes Type 2 Diet Pending Studies Studies pending at discharge: no Laboratory Results Hemoglobin A1c Test 01/05/17 05:32 Range/Units Estimated Average Glucose 146 mg/dl Hemoglobin A1c 6.7 H 4.5-5.6 % Medical Emergencies . Who to Call and When: Medical Emergencies: If at any time you feel your situation is an emergency, please call 911 immediately. . Non-Emergent Contact Non-Emergency issues call your: Primary Care Provider, Hospital Doctor . . "Provider Documentation" section prepared by Esteban Purdy. . VTE Core Measure Inpt VTE Proph given/why not?: SCD's . Additional Copies To Juan Vergara D.O.; Anil Fields, DO; Alessia Ward D.O.
== END 2017-02-14 17:30 | disposition home health service (06) | DRG 964 ==
LOC: C.EDB 11:51 → C.2T 17:49 → EDBEDREQ 18:10 → ENRESERV 18:26 → C.4E 02-12 13:37
PROVIDERS: ADMIT Hospitalist; ATTEND Hospitalist
PROC: 0T9B70Z Drainage of Bladder with Drainage Device, Via Natural or Artificial Opening (ICD-10-PCS; principal; 2017-02-11)
DX: S06.5X0A Traumatic subdural hemorrhage without loss of consciousness, initial encounter (principal); S72.112A Displaced fracture of greater trochanter of left femur, initial encounter for closed fracture; N39.0 Urinary tract infection, site not specified; C64.1 Malignant neoplasm of right kidney, except renal pelvis; I13.0 Hypertensive heart and chronic kidney disease with heart failure and stage 1 through stage 4 chronic kidney disease, or unspecified chronic kidney disease; I50.32 Chronic diastolic (congestive) heart failure; F03.91 Unspecified dementia, unspecified severity, with behavioral disturbance; B96.20 Unspecified Escherichia coli [E. coli] as the cause of diseases classified elsewhere; I48.2 Chronic atrial fibrillation; E11.22 Type 2 diabetes mellitus with diabetic chronic kidney disease; N18.3 Chronic kidney disease, stage 3 (moderate); I25.10 Atherosclerotic heart disease of native coronary artery without angina pectoris; E78.5 Hyperlipidemia, unspecified; E03.9 Hypothyroidism, unspecified; W19.XXXA Unspecified fall, initial encounter; Y93.01 Activity, walking, marching and hiking; Y92.019 Unspecified place in single-family (private) house as the place of occurrence of the external cause; Y99.8 Other external cause status; Z95.1 Presence of aortocoronary bypass graft; Z79.01 Long term (current) use of anticoagulants; Z79.84 Long term (current) use of oral hypoglycemic drugs; Z79.899 Other long term (current) drug therapy; Z88.2 Allergy status to sulfonamides; Z82.49 Family history of ischemic heart disease and other diseases of the circulatory system; Z82.5 Family history of asthma and other chronic lower respiratory diseases; Z83.79 Family history of other diseases of the digestive system

== ENCOUNTER 2017-02-27 10:19 | Emergency (ER) | payer OTHER ==
[~2017-02-27 10:19] MED LIST changes: +ACET-1138 PO; +AXIT1TAB PO; +CALC500C70 PO; -CMD25 PO; +CZR25 PO; -GLIP10TA9 PO; -LPR25 PO; +METO50TA17 PO
[2017-02-27 11:32] LABS: BASO % 0.4 %; BASO ABS # 0.04 K/uL (0-0.2); COMPLETE YES; EOS % 0.4 %; HEMATOCRIT 42.1 % (37-47); IG% 0.2 %; LYMPH % 21.6 %; LYMPH ABS # 1.94 K/uL (1.2-3.4); MEAN CELL VOLUME 95.2 fL (80-100); MEAN CORPUSCULAR HEMOGLOBIN 33.7 pg (25-34); MEAN CORPUSCULAR HGB CONC 35.4 g/dl (32-36); MEAN PLATELET VOLUME 10.6 fL (7.4-10.4); MONO % 7.2 %; NEUT % 70.2 %; PLATELET COUNT 202 K/uL (130-400); RED BLOOD COUNT 4.42 M/uL (4.2-5.4); WHITE BLOOD COUNT 8.99 K/uL (4.8-10.8)
[2017-02-27 11:39] LABS: INR 1.1 (0.9-1.1); PROTHROMBIN TIME (PATIENT) 11.7 SECONDS (9.0-12.0)
[2017-02-27 11:46] LABS: URINE APPEARANCE CLEAR (CLEAR); URINE BILIRUBIN NEG (NEG); URINE COLOR YELLOW; URINE NITRITE NEG (NEG); UROBILINOGEN NEG (NEG); ZZURINE CULT IF INDIC CATH NO
[2017-02-27 11:52] LABS: MANUAL MICROSCOPIC REQUIRED? NO; REVIEW REQ? NO
[2017-02-27 11:54] LABS: ALT/SGPT 21 U/L (12-78); BLOOD UREA NITROGEN 34 mg/dl (7-18); BUN/CREATININE RATIO 24.4 (10-20); CALCIUM 10.4 mg/dl (8.5-10.1); CARBON DIOXIDE 29 mmol/L (21-32); CHLORIDE 93 mmol/L (98-107); CREATININE 1.41 mg/dl (0.60-1.20); GLUCOSE 210 mg/dl (70-99); POTASSIUM 4.7 mmol/L (3.5-5.1); SODIUM 129 mmol/L (136-145)
[2017-02-27] MEDS ORDERED: CALC500C70 PO (12:04)
[2017-02-27] MEDS ORDERED: ACET-1256 PO (12:04)
[2017-02-27 12:05] LABS: ALB/GLOB RATIO 0.8 (0.9-2); ALKALINE PHOSPHATASE 100 U/L (45-117); AST/SGOT 26 U/L (15-37)
--- NOTE | 2017-02-27 12:15 | DIAGNOSTIC IMAGING REPORT ---
HEAD WITHOUT CONTRAST (CT) CLINICAL HISTORY: 76 years-old Female with confusion. Acute confusion with recent fall. Prior subdural hematoma TECHNIQUE: Multiple axial CT images of the head were obtained without contrast. A dose lowering technique was utilized adhering to the principles of ALARA. CT DOSE: 537.48 mGy.cm COMPARISON: CT head 02/13/2017. FINDINGS: Trace subacute subdural hematoma of the right cerebral hemisphere adjacent to the right frontal lobe has decreased in size, now measuring 2 mm as seen on image 14 series 2. No midline shift or acute intracranial hemorrhage identified. Mild to moderate atrophy redemonstrated with associated chronic microvascular ischemic changes. No territorial ischemia or hydrocephalus. Vascular calcifications are seen at the level of the skull base. No skull fracture. Mastoid air cells, middle ear cavities and paranasal sinuses are clear. Prior bilateral cataract repair. The soft tissues are unremarkable. IMPRESSION: 1. Continued evolution of the subacute trace subdural hematoma adjacent to the right frontal lobe, now measuring 2 mm (previously 4 mm on study dated 02/13/2017). 2. No acute intracranial abnormality identified. The above report was generated using voice recognition software. It may contain grammatical, syntax or spelling errors. Electronically signed by: Joe Fernandez M.D. 02/27/2017 12:14 PM Dictated Date/Time: 02/27/2017 12:08 PM
[2017-02-27 13:04] VITALS: BP 129/69; PULSE 90; O2SAT 95
--- NOTE | 2017-02-27 13:50 | EMERGENCY ROOM VISIT NOTE ---
History Report prepared by Brittani: Joe Kennedy Under the Supervision of: Dr. Sridhar Adam D.O. First contact with patient: 11:30 Chief Complaint: ALTERED MENTAL STATUS Stated Complaint: CHECK FOR BRAIN BLEED-FELL 2 WKS AGO, POSS. UTI Nursing Triage Summary: patient with fall and subdural hematoma on February 11. Per her son he has been increasingly confused at home and took her to PCP and they want to make sure she doesn't have an extension in the bleed vs a UTI. History of Present Illness The patient is a 76 year old female who presents to the Emergency Room with altered mental status that began two days ago. This history is limited secondary to the patient altered mental status and baseline dementia. Per the patient's children, she experienced a fall on February 11 of this year which resulted in a subdural hematoma. She was treated further at [facility] and then was discharged. When her mental status became altered, she was taken to her PCP's office. They referred her to the ER for further testing to rule out worsening subdural hematoma vs. UTI. Per the patient, her only complaint is that her mouth is dry. She denies any headache. Source of History: family History Limited By: AMS Onset: two days ago Position: other (Global) Symptom Intensity: moderate Quality: other (Altered mental status) Timing: constant Associated Symptoms: No headache Note: Her mouth is dry. Review of Systems ROS is limited secondary to the patient's altered mental status. 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 (9) Renal cell carcinoma of right kidney Surgical Problems: (1) H/O colonoscopy (2) History of kidney surgery (3) History of partial hysterectomy (4) Hx of appendectomy (5) Hx of CABG (6) S/P cholecystectomy Family History FH gastric disorder - mother had gastric surgery MOTHER FH: COPD (chronic obstructive pulmonary disease) FATHER FH: heart disease FATHER Social History Smoking Status: Never Smoker Drug Use: none Marital Status: Occupation Status: retired Current/Historical Medications Scheduled Atorvastatin (Lipitor), 40 MG PO HS Axitinib (Inlyta), 2 MG PO BID Calcium/Vitamin D (Os-Kenan 500 Plus D), 1 TAB PO BID Levothyroxine Sodium (Synthroid), 100 MCG PO QAM Losartan Potassium (Losartan Potassium), 25 MG PO DAILY Metformin Hcl (Glucophage), 500 MG PO BID Metoprolol Tartrate (Metoprolol Tartrate), 50 MG PO BID Scheduled PRN Acetaminophen (Tylenol), 500 MG PO Q4H PRN for Pain Allergies Coded Allergies: Sulfamethoxazole w/Trimethoprim (Verified Adverse Reaction, Mild, N/V, 01/04) Physical Exam Vital Signs Date Time Temp Pulse Resp B/P (MAP) Pulse Ox O2 Delivery O2 Flow Rate FiO2 02/27/17 13:04 90 18 129/69 95 Room Air 02/27/17 10:35 90 16 130/86 94 Room Air Physical Exam CONSTITUTIONAL/VITAL SIGNS: Reviewed / noted above. GENERAL: Non-toxic in appearance. INTEGUMENTARY: Warm, dry, and [place]. HEAD: Normocephalic. EYES: without scleral icterus or trauma. ENT/OROPHARYNX: clear but dry. LYMPHADENOPATHY/NECK: Is supple without lymphadenopathy or meningismus. RESPIRATORY: Lungs clear and equal. CARDIOVASCULAR: Regular rate and rhythm. GI/ABDOMEN: Soft and nontender. No organomegaly or pulsatile mass. No rebound or guarding. Normal bowel sounds. EXTREMITIES: Warm and well perfused. BACK: No CVA tenderness. NEUROLOGICAL: Awake, oriented to self but not place or time. Moves all four extremities on command. PSYCHIATRIC: normal affect. MUSCULOSKELETAL: Normally developed with good muscle tone. Medical Decision & Procedures ER Provider Diagnostic Interpretation: Radiology results as stated below per my review and radiologist interpretation: HEAD WITHOUT CONTRAST (CT) CLINICAL HISTORY: 76 years-old Female with confusion. Acute confusion with recent fall. Prior subdural hematoma TECHNIQUE: Multiple axial CT images of the head were obtained without contrast. A dose lowering technique was utilized adhering to the principles of ALARA. CT DOSE: 537.48 mGy.cm COMPARISON: CT head 02/13/2017. FINDINGS: Trace subacute subdural hematoma of the right cerebral hemisphere adjacent to the right frontal lobe has decreased in size, now measuring 2 mm as seen on image 14 series 2. No midline shift or acute intracranial hemorrhage identified. Mild to moderate atrophy redemonstrated with associated chronic microvascular ischemic changes. No territorial ischemia or hydrocephalus. Vascular calcifications are seen at the level of the skull base. No skull fracture. Mastoid air cells, middle ear cavities and paranasal sinuses are clear. Prior bilateral cataract repair. The soft tissues are unremarkable. IMPRESSION: 1. Continued evolution of the subacute trace subdural hematoma adjacent to the right frontal lobe, now measuring 2 mm (previously 4 mm on study dated 02/13/2017). 2. No acute intracranial abnormality identified. The above report was generated using voice recognition software. It may contain grammatical, syntax or spelling errors. Electronically signed by: Joe Fernandez M.D. 02/27/2017 12:14 PM Dictated Date/Time: 02/27/2017 12:08 PM Laboratory Results 02/27/17 11:15 Red Blood Count 4.42, Mean Corpuscular Volume 95.2, Mean Corpuscular Hemoglobin 33.7, Mean Corpuscular Hemoglobin Concent 35.4, Mean Platelet Volume 10.6, Neutrophils (%) (Auto) 70.2, Lymphocytes (%) (Auto) 21.6, Monocytes (%) (Auto) 7.2, Eosinophils (%) (Auto) 0.4, Basophils (%) (Auto) 0.4, Neutrophils # (Auto) 6.30, Lymphocytes # (Auto) 1.94, Monocytes # (Auto) 0.65, Eosinophils # (Auto) 0.04, Basophils # (Auto) 0.04 02/27/17 11:15 Test 02/27/17 00:00 02/27/17 11:15 Urine Color YELLOW Urine Appearance CLEAR (CLEAR) Urine pH 5.0 (4.5-7.5) Urine Specific [place] 1.020 (1.000-1.030) Urine Protein NEG (NEG) Urine Glucose (UA) NEG (NEG) Urine Ketones NEG (NEG) Urine Occult Blood NEG (NEG) Urine Nitrite NEG (NEG) Urine Bilirubin NEG (NEG) Urine Urobilinogen NEG (NEG) Urine Leukocyte Esterase SMALL (NEG) Urine WBC (Auto) 1-5 /hpf (0-5) Urine RBC (Auto) 0-4 /hpf (0-4) Urine Hyaline Casts (Auto) 1-5 /lpf (0-5) Urine Epithelial Cells (Auto) 10-20 /lpf (0-5) Urine Bacteria (Auto) NEG (NEG) White Blood Count 8.99 K/uL (4.8-10.8) Red Blood Count 4.42 M/uL (4.2-5.4) Hemoglobin 14.9 g/dL (12.0-16.0) Hematocrit 42.1 % (37-47) Mean Corpuscular Volume 95.2 fL (80-100) Mean Corpuscular Hemoglobin 33.7 pg (25-34) Mean Corpuscular Hemoglobin Concent 35.4 g/dl (32-36) Platelet Count 202 K/uL (130-400) Mean Platelet Volume 10.6 fL (7.4-10.4) Neutrophils (%) (Auto) 70.2 % Lymphocytes (%) (Auto) 21.6 % Monocytes (%) (Auto) 7.2 % Eosinophils (%) (Auto) 0.4 % Basophils (%) (Auto) 0.4 % Neutrophils # (Auto) 6.30 K/uL (1.4-6.5) Lymphocytes # (Auto) 1.94 K/uL (1.2-3.4) Monocytes # (Auto) 0.65 K/uL (0.11-0.59) Eosinophils # (Auto) 0.04 K/uL (0-0.5) Basophils # (Auto) 0.04 K/uL (0-0.2) RDW Standard Deviation 54.0 fL (36.4-46.3) RDW Coefficient of Variation 15.7 % (11.5-14.5) Immature Granulocyte % (Auto) 0.2 % Immature Granulocyte # (Auto) 0.02 K/uL (0.00-0.02) Prothrombin Time 11.7 SECONDS (9.0-12.0) Prothromb Time International Ratio 1.1 (0.9-1.1) Activated Partial Thromboplast Time 26.1 SECONDS (21.0-31.0) Partial Thromboplastin Ratio 1.0 Anion Gap 7.0 mmol/L (3-11) Estimated GFR () 41.8 Estimated GFR (Non- 36.1 BUN/Creatinine Ratio 24.4 (10-20) Calcium Level 10.4 mg/dl (8.5-10.1) Total Bilirubin 0.8 mg/dl (0.2-1) Aspartate Amino Transf (AST/SGOT) 26 U/L (15-37) Alanine Aminotransferase (ALT/SGPT) 21 U/L (12-78) Alkaline Phosphatase 100 U/L (45-117) Total Protein 8.1 gm/dl (6.4-8.2) Albumin 3.5 gm/dl (3.4-5.0) Globulin 4.6 gm/dl (2.5-4.0) Albumin/Globulin Ratio 0.8 (0.9-2) Thyroid Stimulating Hormone (TSH) 2.010 uIu/ml (0.300-4.500) Laboratory results as stated above per my review. ED Course 1130: Previous medical records were reviewed. The patient was evaluated in room C12B. A complete history and physical examination was performed. 1352: On reevaluation, the patient is resting. I discussed the results and findings with the patient's family. They verbalized agreement of the treatment plan. She was discharged home. Medical Decision Differential diagnosis: Etiologies such as metabolic, infection, hypoglycemia, electrolyte abnormalities , cardiac sources, intracerebral event, toxicologic, neurologic, as well as others were entertained. This is a 76-year-old female who presents to the ED with a chief complaint of some change in mental status. The patient fell couple weeks ago. At the time she had a subdural hematoma. The patient has some increased confusion over the last 24-48 hours. They were sent here for further evaluation. The patient's exam was relatively unremarkable. She does have some baseline dementia. She is awake and alert and oriented times one. A CT scan of the brain did not show any acute process. There is some improvement of the subdural that was previously seen. CBC is normal. BUN is 34, creatinine is 1.4 and sodium is 129. Urine did not show infection. The patient's family would like the patient be placed on hospice. The patient is felt to be stable for discharge and outpatient follow-up. Case management has talked to the patient and family about hospice Medication Reconcilliation Current Medication List: was personally reviewed by me Blood Pressure Screening Patient's blood pressure: Normal blood pressure Blood pressure disposition: Did not require urgent referral Impression Primary Impression: Weakness Additional Impression: Dementia Scribe Attestation The scribe's documentation has been prepared under my direction and personally reviewed by me in its entirety. I confirm that the note above accurately reflects all work, treatment, procedures, and medical decision making performed by me. Departure Information Dispostion Home / Self-Care Referrals No Doctor, Assigned (PCP) Forms HOME CARE DOCUMENTATION FORM, IMPORTANT VISIT INFORMATION Patient Instructions My [facility] Health Problem Qualifiers
== END 2017-02-27 14:02 | disposition home or self-care (01) ==
LOC: C.EDB 10:20 → C.EDC 14:02
DX: F03.90 Unspecified dementia, unspecified severity, without behavioral disturbance, psychotic disturbance, mood disturbance, and anxiety (principal); R41.82 Altered mental status, unspecified; R53.1 Weakness; I48.2 Chronic atrial fibrillation; I12.9 Hypertensive chronic kidney disease with stage 1 through stage 4 chronic kidney disease, or unspecified chronic kidney disease; E11.22 Type 2 diabetes mellitus with diabetic chronic kidney disease; N18.3 Chronic kidney disease, stage 3 (moderate); E78.5 Hyperlipidemia, unspecified; E03.9 Hypothyroidism, unspecified; Z95.1 Presence of aortocoronary bypass graft; C64.1 Malignant neoplasm of right kidney, except renal pelvis; Z79.899 Other long term (current) drug therapy

== ENCOUNTER → 2017-04-13 | Outpatient (CLI) | payer OTHER ==
[~2017-04-13] MED LIST changes: -ACET-1138 PO; +ACET-1256 PO; -KFL500 PO
--- NOTE | 2017-04-15 11:43 | CODING QUERY NO DIAGNOSIS ---
: 1940 TREATMENT RENDERED WITHOUT A DIAGNOSIS To promote full compliance with coding requirements relating to patient care, physician participation is requested in all cases of blueprint tracer uncertainty. Please assist us with providing a diagnosis/symptom for the test(s) below: A diagnosis/symptom was not documented on your Order. A valid diagnosis/symptom is required to bill all insurances. Please remember that we are unable to code a diagnosis of rule out, probable, possible, questionable, or suspected. Tests that require a diagnosis: DOS: 04/12/17 * URINE CULTURE, CLEAN CATCH DIAGNOSIS: Provider Signature: Date: Thank you Olya Thomas Health Information Management Once completed, please kindly fax back to [phone] For questions please call [phone]
== END | disposition home or self-care (01) ==
LOC: C.LABSPEC 14:16
PROVIDERS: ATTEND Family Medicine
DX: N30.00 Acute cystitis without hematuria (principal)